=== PATIENT | female | born 1990 | race African-American/Black ===

== ENCOUNTER 2020-08-28 20:48 | Emergency (ER) | payer OTHER, SELFPAY ==
--- NOTE | 2020-08-28 21:10 | PC.NURSE ---
MD GARCIA AT BEDSIDE FOR PRIMARY EVAL.
[2020-08-28 21:21] VITALS: BP 124/75; PULSE 93; RESP 16; TEMP 37.1; O2SAT 98; BMI 27.4
--- NOTE | 2020-08-28 21:30 | ED.GENADULT ---
HPI - General Adult General Chief complaint: General Medical Stated complaint: covid symptoms Time Seen by Provider: 08/28/20 21:06 Source: patient Mode of arrival: ambulatory Limitations: no limitations History of Present Illness HPI narrative: patient with multiple strep pharyngitis. Presenting with sore throat for the past couple days. Weakness chills without fevers. No cough. No abdominal pain no nausea no vomiting unable to wait for primary care doctor office to open and came into emergency department complaint: sore throat Onset (ago): day(s) ( 1 day) Severity: mild Severity scale (1-10): 2 Pain Consistency: constant Related Data Previous Rx's Medication Instructions Recorded amoxicillin 875 mg PO BID #14 tab 08/28/20 Allergies Allergy/AdvReac Type Severity Reaction Status Date / Time jacki Allergy Unknown HIVES Unverified 08/12/20 16:35 [place] Allergy Unknown Hives Uncoded 06/07/20 00:00 Review of Systems Review of Systems: Constitutional : No Weight loss, No Fever, No Chills, No Night Sweats, No Fatigue, No Malaise ENT/Mouth : No Hearing loss, No Ear Pain, No Nasal Congestion, No Sinus Pain, No Hoarseness, positive sore throat, No Rhinorrhea, No Swallowing Difficulty Eyes: No Eye Pain, No Swelling, No Redness, No Foreign Body, No Discharge, No Vision Changes Cardiovascular : No Chest Pain, No SOB, No Dyspnea on Exertion, No Orthopnea, No Edema, No Palpitations Respiratory : No Cough, No Sputum, No Wheezing, No Smoke Exposure, No Dyspnea Gastrointestinal : No Nausea, No Vomiting, No Diarrhea, No Constipation, No abdominal Pain, No Hematochezia, No Melena Genitourinary : no irregular bleeding, No Dysuria, No Urinary Frequency, No Hematuria, No Urinary Incontinence, No Urgency, No Flank Pain, No Urinary Flow Changes, No Hesitancy Musculoskeletal : No joint pain, No Myalgias, No Joint Swelling Skin : No Skin Lesions, No rash Neuro : No Weakness, No Numbness, No Paresthesias, No Loss of Consciousness, No Dizziness, No Headache Psych : No Anxiety/Panic, No Depression, No SI/HI/AH/VH, No Social Issues, Heme/Lymph: No Bruising, No Bleeding,No Lymphadenopathy Endocrine : No Polyuria, No Polydipsia, No Temperature Intolerance [facility] Past Medical History Attestation statement: The following information was validated with the patient. Medical History (Updated 08/28/20 @ 22:50 by Han Grace DO) No known health problems Tonsillitis Family History Family History (Updated 08/28/20 @ 22:50 by Han Grace DO) Other Patient denies medical problems Social History Social History (Updated 08/28/20 @ 22:50 by Han Grace DO) Household Members: Family Advance Directives: No Physical Exam Vital Signs and I&O and Narrative: Vital Signs and I&O: Vital Signs Temp 98.7 F 08/28/20 21:21 Pulse 93 08/28/20 21:21 Resp 16 08/28/20 21:21 BP 124/75 08/28/20 21:21 Pulse Ox 98 08/28/20 21:21 Intake & Output 08/28/20 08/28/20 08/29/20 06:59 18:59 06:59 Weight 74.843 kg Body Mass Index 27.4 Const: Other: Appearance: Alert. Oriented X3. No acute distress. Eyes: Pupils equal, round and reactive to light. ENT: Pharynx bilateral exit day with Erythema. positive discharge. no stiff neck no drooling Neck: Normal inspection. Neck supple. CVS: Normal heart rate and rhythm. Pulses normal. Respiratory: No respiratory distress. Breath sounds normal. Abdomen: Soft and nontender. Skin: Skin warm and dry. Normal skin color. Normal skin turgor. Extremities: No lower extremity edema. No lower extremity edema. Neuro: Oriented X 3. No motor deficit. No sensory deficit. Discharge Plan Discharge Clinical Impression: Pharyngitis Qualifiers: Pharyngitis/tonsillitis etiology: streptococcus Qualified Code(s): J02.0 - Streptococcal pharyngitis Patient Disposition: Home, Self-Care Instructions: Pharyngitis (ED) Additional Instructions: Thank you for visiting the emergency department today. If your symptoms worsen or do not resolve completely please return to the emergency department immediately or call 911. if he have any questions please call your primary care physician Prescriptions: New amoxicillin 875 mg tablet 875 mg PO BID Qty: 14 RF: 0 Referrals: Diane Doss [Emergency Nurse] - 2 days
[2020-08-28] MEDS: Amoxicillin 500 MG CAPSULE PO (22:17)
== END 2020-08-28 23:08 | disposition home or self-care (01) ==
PROVIDERS: Emergency Provider Emergency Medicine
DX: J02.0 Streptococcal pharyngitis (principal)
CPT/HCPCS: 99283

== ENCOUNTER 2021-04-26 15:33 | Emergency (ER) | payer OTHER, SELFPAY ==
--- NOTE | ~2021-04-26 | XR_ITS ---
EXAMINATION: XR SHOULDER, RIGHT CLINICAL INFORMATION: Pain COMPARISON: None TECHNIQUE: 3 of the right shoulder. FINDINGS: The bones and soft tissues are normal. No fracture. Glenohumeral and acromioclavicular alignment is anatomic with normal joint space. No abnormal soft tissue calcifications. XR/XR shoulder RT min 2V IMPRESSION: Normal right shoulder.
[2021-04-26 15:59] VITALS: BP 132/86; PULSE 78; RESP 18; TEMP 36.2; O2SAT 99; BMI 26.6
--- NOTE | 2021-04-26 16:25 | ED_ITS ---
HPI - Extremity Problem General Chief complaint: Extremity Injury, Upper Stated complaint: rt shoulder pain Time Seen by Provider: 04/26/21 16:25 History of Present Illness HPI Narrative: Patient complains of right shoulder pain for many months worst in the past several days no acute injury now, she does have work injury from a year ago that felt the same way and never got fully better One year ago she got a steroid shot which helped a little but the shoulder has been stiff and mildly uncomfortable since Related Data Previous Rx's Medication Instructions Recorded amoxicillin 875 mg PO BID #14 tab 08/28/20 acetaminophen 1,000 mg PO QID PRN #30 tab 04/26/21 ibuprofen 600 mg PO Q6H PRN #20 tab 04/26/21 Allergies Allergy/AdvReac Type Severity Reaction Status Date / Time elroy Allergy Unknown HIVES Verified 04/26/21 15:58 [place] Allergy Unknown Hives Uncoded 06/07/20 00:00 Review of Systems Review of Systems: Positive for right shoulder pain Negatives are no fever no chills no dizziness no weakness no neck pain no back pain no radiating pain no numbness weakness or tingling no rash no chest pain Yes all other systems are reviewed and are negative PMFSH Past Medical History Source: nursing notes reviewed Medical History (Updated 04/27/21 @ 00:01 by Adolfo Connor) No known health problems Tonsillitis Family History Family History (Updated 08/28/20 @ 22:50 by Han Grace DO) Other Patient denies medical problems Social History Social History (Updated 08/28/20 @ 22:50 by Han Grace DO) Household Members: Family Advance Directives: No Advance Directives Information Provided: No Patient : No Physical Exam Vital Signs: Vital Signs: Last Vital Signs Temp 97.1 F 04/26/21 15:59 Pulse 78 04/26/21 15:59 Resp 18 04/26/21 15:59 BP 132/86 04/26/21 15:59 Pulse Ox 99 04/26/21 15:59 Body Mass Index 26.6 General appearance is no acute distress The head is normocephalic atraumatic The neck is supple and nontender The chest wall is nontender no respiratory distress Extremities the right shoulder is tender anterior and deltoid area, range of motion is limited by pain on extension abduction and external rotation, the skin is normal there is no redness no warmth no obvious effusion, the arm is neurovascular intact distal Other extremities normal Skin no rash Neuro no gross motor sensory deficit Course Course Course Narrative: Right shoulder x-ray is negative and patient will follow with orthopedist Discharge Plan Discharge Clinical Impression: Right shoulder strain Patient Disposition: Home, Self-Care Additional Instructions: X-ray was normal Follow closely with orthopedist either here or at [facility] as range of motion is reduced and it is impairing her ability to work Orthopedist may try another steroid shot, you may need an MRI you may need physical therapy Return any concerns Prescriptions: New acetaminophen 500 mg tablet 1,000 mg PO QID PRN (Reason: pain) Qty: 30 RF: 0 ibuprofen 600 mg tablet 600 mg PO Q6H PRN (Reason: pain) Qty: 20 RF: 0 No Action amoxicillin 875 mg tablet 875 mg PO BID Qty: 14 RF: 0 Referrals: Leonarda Wild MD [Physician] - 2 days (Shoulder pain for year, decreased range of motion normal x-ray) Stand Alone Forms: Work/School Release Interventions: ED Discharge Assessment Last Done: 04/26/21 17:04 Discharge Date/Time: 04/26/21 17:06
== END 2021-04-26 17:06 | disposition home or self-care (01) ==
PROVIDERS: Emergency Provider Emergency Medicine Emergency Medical Services; PCP Internal Medicine
DX: S46.911A Strain of unspecified muscle, fascia and tendon at shoulder and upper arm level, right arm, initial encounter (principal); M25.511 Pain in right shoulder; X58.XXXA Exposure to other specified factors, initial encounter; Y93.9 Activity, unspecified; Y92.9 Unspecified place or not applicable; Y99.9 Unspecified external cause status; Z79.899 Other long term (current) drug therapy
CPT/HCPCS: 73030; 99283

== ENCOUNTER 2022-11-07 18:32 | Emergency (ER) | payer OTHER, SELFPAY ==
[2022-11-07 19:59] VITALS: BP 139/95; PULSE 79; RESP 18; TEMP 36.2; O2SAT 100; BMI 24.1
--- NOTE | 2022-11-07 20:00 | ED_ITS ---
HPI - URI/Sore Throat General Chief Complaint: General Medical Stated Complaint: throat swelling/Covid + Source: patient Mode of arrival: ambulatory Limitations: no limitations History of Present Illness HPI Narrative: 32yoF recently tested positive for COVID 4-5 days ago is presenting to the ER with complaints of sore throat, cough with sputum production and chest tightness. Also reports associated nausea/vomiting. Reports she is able to keep liquids down no solids. Denies any other symptoms complaints or concerns. MD elicited complaint: cough, sore throat, rhinorrhea and nasal congestion Onset (ago): day(s) (4-5) Consistency: constant and progressively worsening Severity: moderate Description of mucous: clear, watery and yellow Able to tolerate fluids by mouth: Yes Exacerbating factors: swallowing Relieving factors: nothing Associated symptoms: chills, myalgias, rhinorrhea, nasal congestion, sore throat, cough, nausea and vomiting Treatments prior to arrival: none Related Data Previous Rx's Medication Instructions Recorded amoxicillin 875 mg tablet 875 mg PO BID #14 tabs 08/28/20 acetaminophen 500 mg tablet 1,000 mg PO QID PRN pain #30 tabs 04/26/21 ibuprofen 600 mg tablet 600 mg PO Q6H PRN pain #20 tabs 04/26/21 Allergies Allergy/AdvReac Type Severity Reaction Status Date / Time jacki Allergy Unknown HIVES Verified 04/26/21 15:58 [place] Allergy Unknown Hives Uncoded 06/07/20 00:00 Review of Systems Review of Systems: Constitutional : No Weight loss, No Fever, + Chills, No Night Sweats, + Fatigue, + Malaise ENT/Mouth : No Hearing loss, No Ear Pain, + Nasal Congestion, No Sinus Pain, No Hoarseness, + sore throat, + Rhinorrhea, No Swallowing Difficulty Eyes: No Eye Pain, No Swelling, No Redness, No Foreign Body, No Discharge, No Vision Changes Cardiovascular : No Chest Pain, No SOB, No Dyspnea on Exertion, No Orthopnea, No Edema, No Palpitations Respiratory : + Cough, + Sputum, No Wheezing, No Smoke Exposure, No Dyspnea Gastrointestinal : + Nausea, + Vomiting, No Diarrhea, No Constipation, No abdominal Pain, No Hematochezia, No Melena Genitourinary : no irregular bleeding, No Dysuria, No Urinary Frequency, No Hematuria, No Urinary Incontinence, No Urgency, No Flank Pain, No Urinary Flow Changes, No Hesitancy Musculoskeletal : No joint pain, No Myalgias, No Joint Swelling Skin : No Skin Lesions, No rash Neuro : No Weakness, No Numbness, No Paresthesias, No Loss of Consciousness, No Dizziness, No Headache Psych : No Anxiety/Panic, No Depression, No SI/HI/AH/VH, No Social Issues, Heme/Lymph: No Bruising, No Bleeding,No Lymphadenopathy Endocrine : No Polyuria, No Polydipsia, No Temperature Intolerance Yes all other systems are reviewed and are negative [facility] Past Medical History Attestation statement: The following information was validated with the patient. Source: old records reviewed and nursing notes reviewed Medical History No known health problems Tonsillitis Family History Family History Other Patient denies medical problems Social History Social History Household Members: Family Advance Directives: No Advance Directives Information Provided: No Physical Exam Vital Signs: Vital Signs: Last Vital Signs Temp 97.1 F 11/07/22 19:59 Pulse 79 11/07/22 19:59 Resp 18 11/07/22 19:59 BP 139/95 H 11/07/22 19:59 Pulse Ox 100 11/07/22 19:59 O2 Del Method 11/07/22 19:59 BMI result Body Mass Index 24.1 Vital signs reviewed. Blood pressure normal. Pulse normal. Respiration normal. Oxygen normal. Temperature normal. Appearance: Alert. Oriented X3. No acute distress. Head: Normal external exam. Normocephalic. Atraumatic. Eyes: PERRLA. EOMI. Conjunctiva and sclera normal. Eyelids normal. ENT: EAC normal. TM's Normal. Pharynx normal. Uvula midline. Moist mucous membranes. No lesions/ulcerations or masses noted on the tongue. Normal voice. No trismus noted. No drooling noted. No muffled voice noted. Neck: Normal inspection. Neck supple. FROM. No adenopathy. Thyroid Normal. No meningeal signs. CVS: Normal heart rate and rhythm. Heart sound normal. Pulses normal throughout. No murmurs/rales/gallops. Respiratory: No respiratory distress. Painless inspiration. Breath sounds normal. No wheezes/rales/rhonchi noted. Chest nontender. No accessory muscle usage noted or decreased air movement noted. Abdomen: Soft and nontender. Back: Full range of motion noted. Nontender. Skin: Skin warm and dry. Normal skin color. Normal skin turgor. No rashes/lesions/lacerations noted. Extremities: Extremities exhibit normal range of motion and nontender. Neuro: Oriented X 3. No motor deficit. No sensory deficit. Reflexes normal. Normal steady gait. No focal neuro deficits noted. CN's II-XII intact bilaterally? Vascular: + radial pulses. Normal cap refill. No cyanosis noted to upper extremity nails Course Course Course Narrative: 20pm - 32yoF recently tested positive for COVID 4-5 days ago is presenting to the ER with complaints of sore throat, cough with sputum production and chest tightness. Also reports associated nausea/vomiting. Reports she is able to keep liquids down no solids. Denies any other symptoms complaints or concerns. Plan: COVID/RSV/flu swab, rapid strep. Patient is stable. Vital signs are stable. Not in any acute distress. Patient will be sent to Emergency [facility] care for further evaluation treatment she could benefit from Zofran and a p.o. trial. Reevaluation(s) Reevaluation #1: Patient eloped before told results. all other swabs negatived. Medical Decision Making Lab Data MDM Lab Attestation statement: I reviewed the patient's lab results. Labs: Lab Results 11/07/22 11/07/22 Range/Units 20:04 20:04 Influenza Type A (PCR) NEGATIVE (Negative) Influenza Type B (PCR) NEGATIVE (Negative) RSV RNA Qual (PCR) NEGATIVE (Negative) SARS-CoV-2 RNA (RT-PCR) POSITIVE A (Negative) S. pyogenes GrpA LULY Negative (Negative) Discharge Plan Discharge Clinical Impression: COVID-19 Patient Disposition: Elopement Prescriptions: No Action amoxicillin 875 mg tablet 875 mg PO BID Qty: 14 0RF acetaminophen 500 mg tablet 1,000 mg PO QID PRN (Reason: pain) Qty: 30 0RF ibuprofen 600 mg tablet 600 mg PO Q6H PRN (Reason: pain) Qty: 20 0RF Discharge Date/Time: 11/08/22 00:30
[2022-11-07 20:23] LABS: Strep A Nucleic Acid Negative (Negative)
[2022-11-07 20:55] LABS: Influenza A PCR NEGATIVE (Negative); Influenza B PCR NEGATIVE (Negative); Resp Syncy Virus RNA Qual PCR NEGATIVE (Negative); SARS COV2 PCR INHOUSE POSITIVE (Negative)
--- NOTE | 2022-11-07 23:45 | PC.NURSE ---
Pt called for triage reassessment. PT not in waiting room at this time.
--- NOTE | 2022-11-08 00:25 | PC.NURSE ---
Pt called to triage desk, pt not in waiting room.
== END 2022-11-08 00:30 | disposition left against medical advice (07) ==
PROVIDERS: Emergency Provider Emergency Medicine; PCP Internal Medicine
DX: U07.1 COVID-19 (principal); M79.10 Myalgia, unspecified site; R05.9 Cough, unspecified; Z79.899 Other long term (current) drug therapy
CPT/HCPCS: 0241U; 87651; 99281; 99283

== ENCOUNTER 2022-12-17 13:47 | Emergency (ER) | payer OTHER, SELFPAY ==
[2022-12-17 13:53] VITALS: BP 155/90; PULSE 95; RESP 17; TEMP 36.9; O2SAT 100; BMI 24.4
--- NOTE | 2022-12-17 13:53 | ED_ITS ---
HPI - URI/Sore Throat General Chief Complaint: Upper Respiratory Symptoms <Danika Mota CNP - Last Filed: 12/17/22 13:56> Stated Complaint: R side of throat feels tight, clogged ears <Danika Mota CNP - Last Filed: 12/17/22 13:56> Time Seen by Provider: 12/17/22 14:47 <Danika Mota CNP - Last Filed: 12/17/22 13:56> Source: patient <BIANCA Taylor - Last Filed: 12/17/22 15:45> Mode of arrival: ambulatory <BIANCA Taylor - Last Filed: 12/17/22 15:45> History of Present Illness HPI Narrative: 32-year-old female with a past medical history of COVID-19 in October presenting to the ED complaining of continued sore throat/swelling, greater on the right, with right ear fullness x1 month. Reports chronic clear drainage from right ear, unchanged. Denies difficulty/inability to swallow, shortness of breath, wheezing, fever, hearing loss, cough <BIANCA Taylor - Last Filed: 12/17/22 15:45> MD elicited complaint: sore throat <BIANCA Taylor - Last Filed: 12/17/22 15:45> Onset (ago): month(s) <BIANCA Taylor - Last Filed: 12/17/22 15:45> Related Data Home Medications: Previous Rx's Medication Instructions Recorded amoxicillin 875 mg tablet 875 mg PO BID #14 tabs 08/28/20 acetaminophen 500 mg tablet 1,000 mg PO QID PRN pain #30 tabs 04/26/21 ibuprofen 600 mg tablet 600 mg PO Q6H PRN pain #20 tabs 04/26/21 azithromycin 250 mg tablet See Rx Instructions PO .COMPLEX #6 12/17/22 tabs <Danika Mota CNP - Last Filed: 12/17/22 13:56> Allergies/Adverse Reactions: Allergies Allergy/AdvReac Type Severity Reaction Status Date / Time elroy Allergy Unknown HIVES Verified 04/26/21 15:58 Elroy Allergy Unknown Hives Uncoded 06/07/20 00:00 <Danika Mota CNP - Last Filed: 12/17/22 13:56> Review of Systems Review of Systems: Constitutional:No Fever, No Chills ENT/Mouth: No Ear Pain, No Nasal Congestion, No Sinus Pain, No Hoarseness, + sore throat, No Rhinorrhea, No Swallowing Difficulty Cardiovascular: No Chest Pain, No SOB Respiratory: No Cough, No Wheezing Gastrointestinal: No Nausea, No Vomiting, No Abdominal pain Genitourinary: No Dysuria, No Urinary Frequency, No Hematuria, No Flank Pain Musculoskeletal: No joint pain, No Myalgias, No Joint Swelling Skin: No Skin Lesions, No rash Neuro: No Weakness, No Numbness, No Paresthesias <BIANCA Taylor - Last Filed: 12/17/22 15:45> Yes all other systems are reviewed and are negative <BIANCA Taylor - Last Filed: 12/17/22 15:45> Constitutional: Constitutional: Reports as per HPI <BIANCA Taylor - Last Filed: 12/17/22 15:45> [facility] Past Medical History Attestation statement: The following information was validated with the patient. <BIANCA Taylor - Last Filed: 12/17/22 15:45> Medical History: Medical History No known health problems Tonsillitis <Danika Mota CNP - Last Filed: 12/17/22 13:56> Family History Family History: Family History Other Patient denies medical problems <Danika Mota CNP - Last Filed: 12/17/22 13:56> Social History Social History: Social History Household Members: Family Smoked in Last 30 Days: No Use of substances other than those prescribed or required for medical reasons: No Advance Directives: No Advance Directives Information Provided: No Patient : No <Danika Mota CNP - Last Filed: 12/17/22 13:56> Physical Exam Vital Signs: Vital Signs: Last Vital Signs Temp 98.5 F 12/17/22 13:53 Pulse 95 12/17/22 13:53 Resp 17 12/17/22 13:53 BP 155/90 H 12/17/22 13:53 Pulse Ox 100 12/17/22 13:53 O2 Del Method 12/17/22 13:53 BMI result Body Mass Index 24.4 <Danika Mota ELECTRICIAN [employer]OP - Last Filed: 12/17/22 13:56> Vital Signs: Last Vital Signs Temp 98.5 F 12/17/22 13:53 Pulse 95 12/17/22 13:53 Resp 17 12/17/22 13:53 BP 155/90 H 12/17/22 13:53 Pulse Ox 100 12/17/22 13:53 O2 Del Method 12/17/22 13:53 BMI result Body Mass Index 24.4 <BIANCA Taylor - Last Filed: 12/17/22 15:45> Const: General: cooperative, healthy appearing and no acute distress <BIANCA Taylor - Last Filed: 12/17/22 15:45> Orientation/consciousness: patient oriented x3 <BIANCA Taylor - Last Filed: 12/17/22 15:45> Limitations: no limitations <BIANCA Taylor - Last Filed: 12/17/22 15:45> HEENT: Head: Yes normal to inspection and Yes atraumatic <BIANCA Taylor - Last Filed: 12/17/22 15:45> Ears: hearing grossly normal bilaterally, external ears normal, TM's normal bilaterally and mastoids normal <BIANCA Taylor - Last Filed: 12/17/22 15:45> General nose exam: Normal external nose present <BIANCA Taylro - Last Filed: 12/17/22 15:45> Face and sinus: Yes normal facial exam <BIANCA Taylor Last Filed: 12/17/22 15:45> Mouth: Normal oral and palatal mucosa present <BIANCA Taylor Last Filed: 12/17/22 15:45> Throat: Yes posterior oropharynx normal, Yes tonsils normal, Yes uvula midline, No peritonsillar mass, No posterior oropharynx abnormal, No uvula laterally displaced and No uvular edema <BIANCA Taylor Last Filed: 12/17/22 15:45> Eyes: General: appearance normal, both eyes and all related structures <BIANCA Taylor - Last Filed: 12/17/22 15:45> EOM: EOMs intact bilaterally <BIANCA Taylor - Last Filed: 12/17/22 15:45> Neck: Other: + bilateral submandibular and anterior cervical lymphadenopathy <BIANCA Taylor - Last Filed: 12/17/22 15:45> Neck: Yes normal visual inspection, Yes full ROM, Yes no meningeal signs, Yes lymphadenopathy, No midline deformity and No torticollis <BIANCA Taylor - Last Filed: 12/17/22 15:45> Thyroid: Thyroid normal <BIANCA Taylor - Last Filed: 12/17/22 15:45> Resp: Effort & Inspection: normal respiratory effort and no respiratory distress <BIANCA Taylor - Last Filed: 12/17/22 15:45> Cardio: Rate: regular rate <BIANCA Taylor - Last Filed: 12/17/22 15:45> Heart sounds: S1 normal heart sound present and S2 normal heart sound present <BIANCA Taylor - Last Filed: 12/17/22 15:45> Skin: Rashes: no rashes <Alejandra Briseno PA - Last Filed: 12/17/22 15:45> Wounds: no wounds <BIANCA Taylor - Last Filed: 12/17/22 15:45> Neuro: General: patient oriented x3, tone normal and no meningeal signs <BIANCA Taylor - Last Filed: 12/17/22 15:45> Gait exam (Neuro): Normal gait present <BIANCA Taylor - Last Filed: 12/17/22 15:45> Extrem: General: Yes normal to inspection <BIANCA Taylor - Last Filed: 12/17/22 15:45> Course Course Course Narrative: This is an RME: Additional HPI, ROS, PE not included below will be deferred to primary provider. Patient is a 32 year old female who presents to the ED for throat symptoms. States COVID + 11/02/22. Since then she is having right sided throat pain, tightness, feels when she is supine she can't breath. Was evaluated at urgent care about 4 weeks ago, treated for bronchitis with steroids and inhaler, benzonatate but this did not improved her symptoms. Plan: COVID-19/influenza/RSV testing, strep testing <Danika Mota CNP - Last Filed: 12/17/22 13:56> This is an RME: Additional HPI, ROS, PE not included below will be deferred to primary provider. Patient is a 32 year old female who presents to the ED for throat symptoms. States COVID + 11/02/22. Since then she is having right sided throat pain, tightness, feels when she is supine she can't breath. Was evaluated at urgent care about 4 weeks ago, treated for bronchitis with steroids and inhaler, benzonatate but this did not improved her symptoms. Plan: COVID-19/influenza/RSV testing, strep testing -COVID-19/influenza/RSV and rapid strep negative Results discussed with patient including worrisome signs and symptoms and strict return precautions, and when to return to the emergency department. They verbalized understanding and feel safe for discharge at this time. <BIANCA Taylor - Last Filed: 12/17/22 15:45> Medications Administered Discontinued Medications Generic Name Dose Route Start Last Admin Trade Name Freq PRN Reason Stop Dose Admin Dexamethasone Sodium Phosphate 10 mg 12/17/22 15:11 12/17/22 15:16 Dexamethasone Sod Phosphate 10 Mg/Ml Vial IVPUSH 12/17/22 15:12 10 mg ONCE ONE Administration <Danika Mota CNP - Last Filed: 12/17/22 13:56> Medications Administered Discontinued Medications Generic Name Dose Route Start Last Admin Trade Name Freq PRN Reason Stop Dose Admin Dexamethasone Sodium Phosphate 10 mg 12/17/22 15:11 12/17/22 15:16 Dexamethasone Sod Phosphate 10 Mg/Ml Vial IVPUSH 12/17/22 15:12 10 mg ONCE ONE Administration <BIANCA Taylor - Last Filed: 12/17/22 15:45> Medical Decision Making Medical Decision Making MDM Narrative: 32-year-old female with a past medical history of COVID-19 in October presenting to the ED complaining of continued sore throat/swelling, greater on the right, with right ear fullness x1 month. On exam vital signs stable, NAD, nontoxic appearing, TMs WNL bilaterally, mastoids WNL, oropharynx without swelling/erythema or exudates. No evidence of TIME MOTION ANALYST. No anterior neck swelling. Concern for viral syndrome vs lymphadenopathy vs strep pharyngitis. No evidence of TIME MOTION ANALYST. Low suspicion for underlying edema or epiglottitis. Low suspicion for pneumonia or mastoiditis/chronic otitis externa. Plan: COVID-19/influenza/RSV testing, rapid strep, p.o. Decadron, ENT follow-up Please refer to course for remaining clinical decision making, interpretation of labs/imaging results, and discussions with consultants and/or family members. <BIANCA Taylor - Last Filed: 12/17/22 15:45> Differential Diagnosis Differential Diagnoses: The differential diagnosis associated with the presentation includes <BIANCA Taylor - Last Filed: 12/17/22 15:45> as above <BIANCA Taylor - Last Filed: 12/17/22 15:45> Lab Data MDM Lab Attestation statement: I reviewed the patient's lab results. <BIANCA Taylor - Last Filed: 12/17/22 15:45> Labs: Lab Results 12/17/22 12/17/22 Range/Units 14:08 14:08 Influenza Type A (PCR) NEGATIVE (Negative) Influenza Type B (PCR) NEGATIVE (Negative) RSV RNA Qual (PCR) NEGATIVE (Negative) SARS-CoV-2 RNA (RT-PCR) NEGATIVE (Negative) S. pyogenes GrpA LULY Negative (Negative) <Danika Mota CNP - Last Filed: 12/17/22 13:56> Lab Results 12/17/22 12/17/22 Range/Units 14:08 14:08 Influenza Type A (PCR) NEGATIVE (Negative) Influenza Type B (PCR) NEGATIVE (Negative) RSV RNA Qual (PCR) NEGATIVE (Negative) SARS-CoV-2 RNA (RT-PCR) NEGATIVE (Negative) S. pyogenes GrpA LULY Negative (Negative) <BIANCA Taylor - Last Filed: 12/17/22 15:45> External Record Review External record reviewed: Office record, Outpatient record and Prior outpatient labs <BIANCA Taylor - Last Filed: 12/17/22 15:45> Prescription Management I considered prescription management with: Pain Medication and Antibiotic <BIANCA Taylor - Last Filed: 12/17/22 15:45> Discharge Plan Discharge Clinical Impression: Lymphadenopathy <Danika Mota CNP - Last Filed: 12/17/22 13:56> Patient Disposition: Home, Self-Care <Danika Mota CNP - Last Filed: 12/17/22 13:56> Instructions: Lymphadenopathy (ED) <Danika Mota CNP - Last Filed: 12/17/22 13:56> Additional Instructions: You tested negative for COVID-19, the flu, and RSV. Your given a dose of an oral steroid today in the emergency department, additionally start taking a Zithromax in which is an antibiotic. Have close follow-up with her doctor and ENT. If symptoms persist or worsen, you have difficulty or inability to swallow, difficulty breathing, fever return to the emergency department <Danika Mota CNP - Last Filed: 12/17/22 13:56> Prescriptions: New azithromycin 250 mg tablet See Rx Instructions .ROUTE .COMPLEX Qty: 6 0RF Rx Instructions: take 500 mg today (day 1), then 250 mg for 4 days (days 2-5) No Action amoxicillin 875 mg tablet 875 mg PO BID Qty: 14 0RF acetaminophen 500 mg tablet 1,000 mg PO QID PRN (Reason: pain) Qty: 30 0RF ibuprofen 600 mg tablet 600 mg PO Q6H PRN (Reason: pain) Qty: 20 0RF <Danika Mota CNP - Last Filed: 12/17/22 13:56> Referrals: Fauzia Aburto MD [Physician] - Jenny Lindsay DNP, PROTOTYPE FABRICATOR [Nurse Practitioner] - Jojo Oscar PA [Physician Applied Psychology Chair] - Danie Wall MD [Primary Care Provider] - Gunnar Whitten [Physician] - <Danika Mota CNP - Last Filed: 12/17/22 13:56> Interventions: ED Discharge Assessment Last Done: 12/17/22 15:19 <Danika Mota CNP - Last Filed: 12/17/22 13:56> Discharge Date/Time: 12/17/22 15:23 <Danika Mota CNP - Last Filed: 12/17/22 13:56>
[2022-12-17 14:22] LABS: IDNOW Serial# 6674DD1D
[2022-12-17 14:23] LABS: Strep A Nucleic Acid Negative (Negative)
[2022-12-17 15:00] LABS: Influenza A PCR NEGATIVE (Negative); Influenza B PCR NEGATIVE (Negative); Resp Syncy Virus RNA Qual PCR NEGATIVE (Negative); SARS COV2 PCR INHOUSE NEGATIVE (Negative)
[2022-12-17] MEDS: dexAMETHasone sod phosphate 10 MG/ML VIAL IVPUSH (15:16)
== END 2022-12-17 15:23 | disposition home or self-care (01) ==
PROVIDERS: Nurse Practitioner Family; Emergency Provider Emergency Medicine; PCP Family Medicine
DX: R59.1 Generalized enlarged lymph nodes (principal); Z20.822 Contact with and (suspected) exposure to COVID-19; Z20.828 Contact with and (suspected) exposure to other viral communicable diseases; Z79.899 Other long term (current) drug therapy
CPT/HCPCS: 0241U; 87651; 96374; 99284; J1100

== ENCOUNTER 2022-12-21 10:30 | Emergency (ER) | payer OTHER, SELFPAY ==
--- NOTE | ~2022-12-21 | CT_ITS ---
EXAMINATION: CT SINUS WITHOUT CONTRAST CLINICAL INFORMATION: Pressure in the sinuses. COMPARISON: None TECHNIQUE: Axial images obtained through the sinuses. Coronal and sagittal reformatted images are performed at CT scanner This CT examination was performed using dose optimization techniques as appropriate, variously including the following: *Automated exposure control *Adjustment of mA and/or kV according to patient size (this includes techniques or standardized protocols for targeted exams where dose is matched to indication/reason for exam; i.e. extremities or head) *Use of iterative reconstruction technique DLP: 120 mGy-cm FINDINGS: Paranasal sinuses are normally aerated. Normal aeration of the mastoid air cells and middle ear cavities. Orbits and retrobulbar structures are normal. Partially visualized intracranial structures are unremarkable. There is no osseous abnormality. CT/CT sinus wo IV con IMPRESSION: Normal CT of the paranasal sinuses.
--- NOTE | 2022-12-21 10:48 | ED_ITS ---
HPI - URI/Sore Throat General Chief Complaint: General Medical <Hanny Gordon NP - Last Filed: 12/21/22 10:51> Stated Complaint: sinus pressure sore throat <Hanny Gordon NP - Last Filed: 12/21/22 10:51> Time Seen by Provider: 12/21/22 13:05 <Hanny Gordon NP - Last Filed: 12/21/22 10:51> Source: patient <Gomez Fowler - Last Filed: 12/21/22 14:59> Limitations: no limitations <Gomez Fowler - Last Filed: 12/21/22 14:59> History of Present Illness HPI Narrative: 32-year-old female presents to the ER with multiple complaints of sinus pressure in the right facial area and continued sore throat. Patient states sy mptoms have worsened since tested positive for COVID some time ago. Patient has had multiple visits to the ER for worsening throat pain it lymphadenopathy. Patient recently started on Z-Rafa and her most recent visit on 12/17/2022. Patient taking no other prescribed medications at this time. Patient states she is chronically use Afrin in the past to help open up her nasal passageway. Patient has planned follow-up with PCP and also an ENT doctor. Patient is concerned that something else is going on. Patient also complaining of right- sided ear pain. Patient states at times she feels spasming in her sinuses and neck and that she can not breathe. No sick contacts. Patient does have an in halation history of marijuana use. <Gomez Fowler - Last Filed: 12/21/22 14:59> Related Data Home Medications: Previous Rx's Medication Instructions Recorded amoxicillin 875 mg tablet 875 mg PO BID #14 tabs 08/28/20 acetaminophen 500 mg tablet 1,000 mg PO QID PRN pain #30 tabs 04/26/21 ibuprofen 600 mg tablet 600 mg PO Q6H PRN pain #20 tabs 04/26/21 azithromycin 250 mg tablet See Rx Instructions PO .COMPLEX #6 12/17/22 tabs cetirizine 5 mg-pseudoephedrine ER 1 tab PO Q12H PRN allergy symptoms 12/21/22 120 mg tablet,extended #30 tabs release,12hr (All Day Allergy-D) fluticasone propionate 50 2 spray intranasal DAILY #16 grams 12/21/22 mcg/actuation nasal spray,suspension (Aller-Jame) prednisone 20 mg tablet 40 mg PO DAILY 5 days #10 tabs 12/21/22 <Hanny Gordon NP - Last Filed: 12/21/22 10:51> Allergies/Adverse Reactions: Allergies Allergy/AdvReac Type Severity Reaction Status Date / Time elroy Allergy Unknown HIVES Verified 04/26/21 15:58 Elroy Allergy Unknown Hives Uncoded 06/07/20 00:00 <Hanny Gordon NP - Last Filed: 12/21/22 10:51> Review of Systems Review of Systems: Constitutional : No Weight loss, No Fever, No Chills, No Night Sweats, No Fatigue, No Malaise ENT/Mouth : Positive sore throat, positive right ear pain positive positive sinus pressure positive nasal discharge congestion Eyes: No vision changes no discharge from the eyes Cardiovascular : No Chest Pain, No SOB, No Dyspnea on Exertion Respiratory : No Cough, No Sputum, No Wheezing Gastrointestinal : No Nausea, No Vomiting, No Diarrhea Genitourinary : no irregular bleeding, No Dysuria, No Urinary Frequency Neuro : No Weakness, No Numbness, No Paresthesias, No Loss of Consciousness, No Dizziness, No Headache Psych : Positive anxiety associated with current symptoms Heme/Lymph: No Bruising, No Bleeding,No Lymphadenopathy Endocrine : No Polyuria, No Polydipsia, No Temperature Intolerance <Gomez Fowler - Last Filed: 12/21/22 14:59> [facility] Past Medical History Attestation statement: The following information was validated with the patient. <Gomez Fowler - Last Filed: 12/21/22 14:59> Medical History: Medical History No known health problems Tonsillitis <Hanny Gordon NP - Last Filed: 12/21/22 10:51> Family History Family History: Family History Other Patient denies medical problems <Hanny Gordon NP - Last Filed: 12/21/22 10:51> Social History Social History: Social History Household Members: Family Advance Directives: No <Hanny GhoshZBIGNIEW calvillo - Last Filed: 12/21/22 10:51> Physical Exam Vital Signs: Vital Signs: Last Vital Signs Temp 98.4 F 12/21/22 10:49 Pulse 85 12/21/22 10:49 Resp 16 12/21/22 10:49 BP 137/96 H 12/21/22 10:49 Pulse Ox 100 12/21/22 10:49 O2 Del Method 12/21/22 10:49 BMI result Body Mass Index 24.4 <Hanny GhoshZBIGNIEW calvillo - Last Filed: 12/21/22 10:51> Vital Signs: Last Vital Signs Temp 98.4 F 12/21/22 10:49 Pulse 85 12/21/22 10:49 Resp 16 12/21/22 10:49 BP 137/96 H 12/21/22 10:49 Pulse Ox 100 12/21/22 10:49 O2 Del Method 12/21/22 10:49 BMI result Body Mass Index 24.4 <Gomez Fowler - Last Filed: 12/21/22 14:59> Const: General: healthy appearing, alert, awake and anxious <Gomez Fowler - Last Filed: 12/21/22 14:59> Nutritional Appearance: well nourished <Gomez Fowler - Last Filed: 12/21/22 14:59> Orientation/consciousness: patient oriented x3 <Gomez Fowler - Last Filed: 12/21/22 14:59> HEENT: Other: Right ears clear TM is sharp no fluid noted no discharge noted <Gomez Fowler - Last Filed: 12/21/22 14:59> Head: Yes normocephalic and Yes atraumatic <Gomez Fowler - Last Filed: 12/21/22 14:59> Face and sinus: No sinuses nontender (Right-sided) and Yes face symmetric <Gomez Fowler - Last Filed: 12/21/22 14:59> Mouth: Normal oral and palatal mucosa present, lip normal and tongue normal <Gomez Fowler - Last Filed: 12/21/22 14:59> Teeth and gingiva: dentition normal <Gomez Fowler - Last Filed: 12/21/22 14:59> Throat: Yes posterior oropharynx normal, Yes tonsils normal, Yes uvula midline, No peritonsillar mass and Yes postnasal drainage <Gomez Fowler Last Filed: 12/21/22 14:59> Eyes: General: appearance normal, both eyes and all related structures <Gomez Fowler Last Filed: 12/21/22 14:59> Neck: Other: No carotid bruit noted <Gomez Fowler Last Filed: 12/21/22 14:59> Neck: Yes normal visual inspection, Yes full ROM, Yes trachea midline, Yes supple and No torticollis <[facility] - Last Filed: 12/21/22 14:59> Thyroid: Thyroid normal and symmetrical < Last Filed: 12/21/22 14:59> Chest: Chest palpation & inspection: normal inspection of the chest <Gomez Fowler Last Filed: 12/21/22 14:59> Resp: Effort & Inspection: normal respiratory effort <Gomez Fowler Last Filed: 12/21/22 14:59> Auscultation: clear to auscultation bilaterally <Gomez Fowler Last Filed: 12/21/22 14:59> Cardio: Rate: regular rate <ens Last Filed: 12/21/22 14:59> Rhythm: regular rhythm <Gomez Fowler Last Filed: 12/21/22 14:59> Heart sounds: no gallops and no murmurs <ens Last Filed: 12/21/22 14:59> GI: Inspection: Yes normal to inspection <[facility] Last Filed: 12/21/22 14:59> Back/Spine/Pelvis: Cervical Spine: normal cervical lordosis and cervical ROM normal <[facility] Last Filed: 12/21/22 14:59> Thoracic/Lumbar Spine: thoracic and lumbar spine normal to inspection <[facility] Last Filed: 12/21/22 14:59> Skin: Other: Skin warm and dry no rashes noted <[facility] Last Filed: 12/21/22 14:59> Neuro: Other: Patient is alert oriented x3, no focal deficit noted. Construction Specialist is equal bilaterally. No pronator drift. <Gomez Fowler - Last Filed: 12/21/22 14:59> General: patient oriented x3 <[facility] Last Filed: 12/21/22 14:59> Motor exam (neuro): 5/5 motor strength present throughout <Gomez Fowler - Last Filed: 12/21/22 14:59> Extrem: Other: Moving all extremities purposely patient is ambulatory <Gomez Fowler - Last Filed: 12/21/22 14:59> Course Course Course Narrative: This is a rapid medical exam. Deferred additional HPI, ROS, PE to primary provider. 32 yo female here with right sided ear pain, right sided sore throat, sinus pressure/pain x weeks. Seen here Sunday and had negative viral testing. Started on azithromycin with continued symptoms. Has appt with PCP in January, ENT March. Patient reports continued symptoms. Will obtain swabs for strep, flu/covid/rsv. VSS. <Hanny Gordon NP - Last Filed: 12/21/22 10:51> This is a rapid medical exam. Deferred additional HPI, ROS, PE to primary provider. 32 yo female here with right sided ear pain, right sided sore throat, sinus pressure/pain x weeks. Seen here Sunday and had negative viral testing. Started on azithromycin with continued symptoms. Has appt with PCP in January, ENT March. Patient reports continued symptoms. Will obtain swabs for strep, flu/covid/rsv. VSS. Sinusitis Rhinitis Deviated septum Viral URI Pharyngitis [place] <Gomez Fowler - Last Filed: 12/21/22 14:59> Medical Decision Making Medical Decision Making MDM Narrative: 32-year-old female presents with ongoing sore throat sinus pressure on the right side. Patient has been seen in the ER x2 and has planned follow-up with ENT and PCP. Patient recently started on a Z-Rafa for lymphadenopathy the cervical chain. Patient is without shortness of breath at this time but does have episodes Head time was she feels like her neck spasms and that she can not breathe. Patient is chronically use Afrin for nasal clearing. Will check Monospot at this time. CBC BMP CT scan of the sinuses 14:34 CBC BMP unremarkable at this time Monospot is also negative. CT scan of the sinuses is pending Will plan to change patient to Flonase to avoid continued Afrin use. Patient is following up with ENT and PCP 14:53 Patient signed out to Trey Jenkins CT scan pending. <Gomez Rayens - Last Filed: 12/21/22 14:59> Lab Data Result Diagrams: 12/21/22 13:25 12/21/22 13:25 <Hanny Gordon NP - Last Filed: 12/21/22 10:51> Labs: Lab Results 12/21/22 12/21/22 12/21/22 Range/Units 10:57 10:57 13:25 WBC 6.1 (4.8-10.8) X10*3/uL RBC 4.34 (4.20-5.50) X10*6/uL Hgb 13.5 (12.0-16.0) g/dl Hct 40.9 (37.0-47.0) % MCV 94.2 (80.0-98.0) fL MCH 31.1 (27.0-33.0) pg MCHC 33.0 (31.0-35.0) g/dl RDW 12.1 (11.0-16.0) % Plt Count 266 (160-400) X10*3/uL MPV 11.6 (9.4-12.3) fL Immature Gran % (Auto) Cancelled Neut % (Auto) Cancelled Lymph % (Auto) Cancelled [place] % (Auto) Cancelled Eos % (Auto) Cancelled Baso % (Auto) Cancelled Lymph # (Auto) Cancelled [place] # (Auto) Cancelled Eos # (Auto) Cancelled Baso # (Auto) Cancelled Abs Immat Gran (auto) Cancelled Absolute Neuts (auto) Cancelled Absolute Nucleated RBC 0.000 (0.0-0.012) X10*3/uL Nucleated RBC % (auto) 0.0 (0.0-0.2) /100WBC Neutrophils % (Manual) 57 (45-73) % Band Neutrophils % 0 L (3-5) % Lymphocytes % (Manual) 36 (20-40) % Monocytes % (Manual) 5 (2-11) % Eosinophils % (Manual) 1 (0-4) % Basophils % (Manual) 1 (0-2) % Abs Neuts (Manual) 3.5 (2.0-8.3) X10*3/uL Lymphocytes # (Manual) 2.2 (1.2-4.9) X10*3/uL Monocytes # (Manual) 0.3 (0.1-1.2) X10*3/uL Eosinophils # (Manual) 0.1 (0.0-0.4) X10*3/uL Basophils # (Manual) 0.1 (0.0-0.2) X10*3/uL Platelet Estimate NORMAL (NORMAL) Plt Morphology Comment NORMAL RBC Morphology NORMAL Sodium (135-145) mmol/L Potassium (3.3-5.1) mmol/L Chloride (96-108) mmol/L Carbon Dioxide (22-29) mmol/L Anion Gap (12-20) BUN (9-16) mg/dL Creatinine (0.5-1.4) mg/dL Estim Creat Clear Calc Estimated GFR Random Glucose (60-115) mg/dL Calcium (8.4-10.2) mg/dL Monoscreen (Negative) Influenza Type A (PCR) NEGATIVE (Negative) Influenza Type B (PCR) NEGATIVE (Negative) RSV RNA Qual (PCR) NEGATIVE (Negative) SARS-CoV-2 RNA (RT-PCR) NEGATIVE (Negative) S. pyogenes GrpA LULY Negative (Negative) 12/21/22 12/21/22 Range/Units 13:25 13:25 WBC (4.8-10.8) X10*3/uL RBC (4.20-5.50) X10*6/uL Hgb (12.0-16.0) g/dl Hct (37.0-47.0) % MCV (80.0-98.0) fL MCH (27.0-33.0) pg MCHC (31.0-35.0) g/dl RDW (11.0-16.0) % Plt Count (160-400) X10*3/uL MPV (9.4-12.3) fL Immature Gran % (Auto) Neut % (Auto) Lymph % (Auto) [place] % (Auto) Eos % (Auto) Baso % (Auto) Lymph # (Auto) [place] # (Auto) Eos # (Auto) Baso # (Auto) Abs Immat Gran (auto) Absolute Neuts (auto) Absolute Nucleated RBC (0.0-0.012) X10*3/uL Nucleated RBC % (auto) (0.0-0.2) /100WBC Neutrophils % (Manual) (45-73) % Band Neutrophils % (3-5) % Lymphocytes % (Manual) (20-40) % Monocytes % (Manual) (2-11) % Eosinophils % (Manual) (0-4) % Basophils % (Manual) (0-2) % Abs Neuts (Manual) (2.0-8.3) X10*3/uL Lymphocytes # (Manual) (1.2-4.9) X10*3/uL Monocytes # (Manual) (0.1-1.2) X10*3/uL Eosinophils # (Manual) (0.0-0.4) X10*3/uL Basophils # (Manual) (0.0-0.2) X10*3/uL Platelet Estimate (NORMAL) Plt Morphology Comment RBC Morphology Sodium 139 (135-145) mmol/L Potassium 4.5 (3.3-5.1) mmol/L Chloride 106 (96-108) mmol/L Carbon Dioxide 24 (22-29) mmol/L Anion Gap 14 (12-20) BUN 6 L (9-16) mg/dL Creatinine 0.77 (0.5-1.4) mg/dL Estim Creat Clear Calc 93.5 Estimated GFR > 60 Random Glucose 88 (60-115) mg/dL Calcium 9.5 (8.4-10.2) mg/dL Monoscreen Negative (Negative) Influenza Type A (PCR) (Negative) Influenza Type B (PCR) (Negative) RSV RNA Qual (PCR) (Negative) SARS-CoV-2 RNA (RT-PCR) (Negative) S. pyogenes GrpA LULY (Negative) <Hanny Gordon, HOSE TURNER - Last Filed: 12/21/22 10:51> Lab Results 12/21/22 12/21/22 12/21/22 Range/Units 10:57 10:57 13:25 WBC 6.1 (4.8-10.8) X10*3/uL RBC 4.34 (4.20-5.50) X10*6/uL Hgb 13.5 (12.0-16.0) g/dl Hct 40.9 (37.0-47.0) % MCV 94.2 (80.0-98.0) fL MCH 31.1 (27.0-33.0) pg MCHC 33.0 (31.0-35.0) g/dl RDW 12.1 (11.0-16.0) % Plt Count 266 (160-400) X10*3/uL MPV 11.6 (9.4-12.3) fL Immature Gran % (Auto) Cancelled Neut % (Auto) Cancelled Lymph % (Auto) Cancelled [place] % (Auto) Cancelled Eos % (Auto) Cancelled Baso % (Auto) Cancelled Lymph # (Auto) Cancelled [place] # (Auto) Cancelled Eos # (Auto) Cancelled Baso # (Auto) Cancelled Abs Immat Gran (auto) Cancelled Absolute Neuts (auto) Cancelled Absolute Nucleated RBC 0.000 (0.0-0.012) X10*3/uL Nucleated RBC % (auto) 0.0 (0.0-0.2) /100WBC Neutrophils % (Manual) 57 (45-73) % Band Neutrophils % 0 L (3-5) % Lymphocytes % (Manual) 36 (20-40) % Monocytes % (Manual) 5 (2-11) % Eosinophils % (Manual) 1 (0-4) % Basophils % (Manual) 1 (0-2) % Abs Neuts (Manual) 3.5 (2.0-8.3) X10*3/uL Lymphocytes # (Manual) 2.2 (1.2-4.9) X10*3/uL Monocytes # (Manual) 0.3 (0.1-1.2) X10*3/uL Eosinophils # (Manual) 0.1 (0.0-0.4) X10*3/uL Basophils # (Manual) 0.1 (0.0-0.2) X10*3/uL Platelet Estimate NORMAL (NORMAL) Plt Morphology Comment NORMAL RBC Morphology NORMAL Sodium (135-145) mmol/L Potassium (3.3-5.1) mmol/L Chloride (96-108) mmol/L Carbon Dioxide (22-29) mmol/L Anion Gap (12-20) BUN (9-16) mg/dL Creatinine (0.5-1.4) mg/dL Estim Creat Clear Calc Estimated GFR Random Glucose (60-115) mg/dL Calcium (8.4-10.2) mg/dL Monoscreen (Negative) Influenza Type A (PCR) NEGATIVE (Negative) Influenza Type B (PCR) NEGATIVE (Negative) RSV RNA Qual (PCR) NEGATIVE (Negative) SARS-CoV-2 RNA (RT-PCR) NEGATIVE (Negative) S. pyogenes GrpA LULY Negative (Negative) 12/21/22 12/21/22 Range/Units 13:25 13:25 WBC (4.8-10.8) X10*3/uL RBC (4.20-5.50) X10*6/uL Hgb (12.0-16.0) g/dl Hct (37.0-47.0) % MCV (80.0-98.0) fL MCH (27.0-33.0) pg MCHC (31.0-35.0) g/dl RDW (11.0-16.0) % Plt Count (160-400) X10*3/uL MPV (9.4-12.3) fL Immature Gran % (Auto) Neut % (Auto) Lymph % (Auto) [place] % (Auto) Eos % (Auto) Baso % (Auto) Lymph # (Auto) [place] # (Auto) Eos # (Auto) Baso # (Auto) Abs Immat Gran (auto) Absolute Neuts (auto) Absolute Nucleated RBC (0.0-0.012) X10*3/uL Nucleated RBC % (auto) (0.0-0.2) /100WBC Neutrophils % (Manual) (45-73) % Band Neutrophils % (3-5) % Lymphocytes % (Manual) (20-40) % Monocytes % (Manual) (2-11) % Eosinophils % (Manual) (0-4) % Basophils % (Manual) (0-2) % Abs Neuts (Manual) (2.0-8.3) X10*3/uL Lymphocytes # (Manual) (1.2-4.9) X10*3/uL Monocytes # (Manual) (0.1-1.2) X10*3/uL Eosinophils # (Manual) (0.0-0.4) X10*3/uL Basophils # (Manual) (0.0-0.2) X10*3/uL Platelet Estimate (NORMAL) Plt Morphology Comment RBC Morphology Sodium 139 (135-145) mmol/L Potassium 4.5 (3.3-5.1) mmol/L Chloride 106 (96-108) mmol/L Carbon Dioxide 24 (22-29) mmol/L Anion Gap 14 (12-20) BUN 6 L (9-16) mg/dL Creatinine 0.77 (0.5-1.4) mg/dL Estim Creat Clear Calc 93.5 Estimated GFR > 60 Random Glucose 88 (60-115) mg/dL Calcium 9.5 (8.4-10.2) mg/dL Monoscreen Negative (Negative) Influenza Type A (PCR) (Negative) Influenza Type B (PCR) (Negative) RSV RNA Qual (PCR) (Negative) SARS-CoV-2 RNA (RT-PCR) (Negative) S. pyogenes GrpA LULY (Negative) <Gomez Fowler - Last Filed: 12/21/22 14:59> Discharge Plan Discharge Clinical Impression: Sinus pressure <Hanny Gordon NP - Last Filed: 12/21/22 10:51> Patient Disposition: Home, Self-Care <Hanny Gordon NP - Last Filed: 12/21/22 10:51> Instructions: Sinusitis (ED) <Hanny Gordon NP - Last Filed: 12/21/22 10:51> Additional Instructions: Medications as directed It is important that you follow-up with ENT in your PCP Return if symptoms worsen <Hanny Gordon NP - Last Filed: 12/21/22 10:51> Prescriptions: New fluticasone propionate [Aller-Jame] 50 mcg/actuation spray,suspension 2 spray intranasal DAILY Qty: 16 0RF Rx Instructions: administer into each nostril prednisone 20 mg tablet 40 mg PO DAILY 5 Days Qty: 10 0RF cetirizine-pseudoephedrine [All Day Allergy-D] 5-120 mg tablet extended release 12 hr 1 tab PO Q12H PRN (Reason: allergy symptoms) Qty: 30 0RF No Action amoxicillin 875 mg tablet 875 mg PO BID Qty: 14 0RF acetaminophen 500 mg tablet 1,000 mg PO QID PRN (Reason: pain) Qty: 30 0RF ibuprofen 600 mg tablet 600 mg PO Q6H PRN (Reason: pain) Qty: 20 0RF azithromycin 250 mg tablet See Rx Instructions .ROUTE .COMPLEX Qty: 6 0RF Rx Instructions: take 500 mg today (day 1), then 250 mg for 4 days (days 2-5) <Hanny Gordon NP - Last Filed: 12/21/22 10:51>
[2022-12-21 10:49] VITALS: BP 137/96; PULSE 85; RESP 16; TEMP 36.9; O2SAT 100; BMI 24.4
[2022-12-21 11:21] LABS: IDNOW Serial# 6674DD1D; Strep A Nucleic Acid Negative (Negative)
[2022-12-21 11:43] LABS: Influenza A PCR NEGATIVE (Negative); Influenza B PCR NEGATIVE (Negative); Resp Syncy Virus RNA Qual PCR NEGATIVE (Negative); SARS COV2 PCR INHOUSE NEGATIVE (Negative)
[2022-12-21 13:31] LABS: Hematocrit 40.9 % (37.0-47.0); Hemoglobin 13.5 g/dl (12.0-16.0); Mean Corpuscular Hemoglobin 31.1 pg (27.0-33.0); Mean Corpuscular Volume 94.2 fL (80.0-98.0); Mean Platelet Volume 11.6 fL (9.4-12.3); Platelet Count 266 X10*3/uL (160-400); Red Blood Count 4.34 X10*6/uL (4.20-5.50); Red Cell Distribution Width 12.1 % (11.0-16.0)
[2022-12-21 13:32] LABS: WBC ABN SCTR FOR CBC 1
[2022-12-21 13:33] LABS: White Blood Count 6.1 X10*3/uL (4.8-10.8)
[2022-12-21 13:46] LABS: Anion Gap 14 (12-20); Blood Urea Nitrogen 6 mg/dL (9-16); Calcium 9.5 mg/dL (8.4-10.2); Carbon Dioxide 24 mmol/L (22-29); Chloride 106 mmol/L (96-108); Creatinine Clr Calc Pharmacy 93.5; Estimated Glomerular Filt Rate > 60; Glucose Random 88 mg/dL (60-115); Potassium 4.5 mmol/L (3.3-5.1); Sodium 139 mmol/L (135-145)
[2022-12-21 14:06] LABS: Band Neutrophils Percent 0 % (3-5); Basophils Abs Manual 0.1 X10*3/uL (0.0-0.2); Basophils Percent Manual 1 % (0-2); Eosinophils Absolute Manual 0.1 X10*3/uL (0.0-0.4); Eosinophils Percent Manual 1 % (0-4); Lymphocytes Absolute Manual 2.2 X10*3/uL (1.2-4.9); Lymphocytes Percent Manual 36 % (20-40); Monocytes Absolute Manual 0.3 X10*3/uL (0.1-1.2); Monocytes Percent Manual 5 % (2-11); Neutrophils Absolute Manual 3.5 X10*3/uL (2.0-8.3); Neutrophils Percent Manual 57 % (45-73); Platelet Estimate NORMAL (NORMAL); Platelet Morphology Comment NORMAL; RBC Morphology NORMAL
[2022-12-21 14:23] LABS: Monotest Negative (Negative)
== END 2022-12-21 15:06 | disposition home or self-care (01) ==
PROVIDERS: Nurse Practitioner Family; Physician Assistant; Emergency Provider Student in an Organized Health Care Education/Training Program; PCP Family Medicine
DX: J32.9 Chronic sinusitis, unspecified (principal); J02.9 Acute pharyngitis, unspecified; Z20.822 Contact with and (suspected) exposure to COVID-19; Z20.828 Contact with and (suspected) exposure to other viral communicable diseases; Z79.899 Other long term (current) drug therapy
CPT/HCPCS: 0241U; 36415; 70486; 80048; 85007; 85027; 86308; 87651; 99282; 99284

== ENCOUNTER 2022-12-26 11:36 | Outpatient (REF) | payer OTHER, SELFPAY ==
--- NOTE | ~2022-12-26 | XR_ITS ---
EXAMINATION: XR CHEST CLINICAL INFORMATION: Cough. COMPARISON: Chest radiograph 10/01/2018. TECHNIQUE: 2 views of the chest were obtained. FINDINGS: No significant abnormality is noted involving the heart, lungs, mediastinum, bony thorax or soft tissues. XR/XR chest 2V IMPRESSION: Unremarkable examination.
== END 2022-12-26 11:37 | disposition home or self-care (01) ==
LOC: HO.HMGCX 11:36
PROVIDERS: PCP Family Medicine; Visit Provider Internal Medicine
DX: R05.9 Cough, unspecified (principal)
CPT/HCPCS: 71046

== ENCOUNTER 2023-01-03 12:37 | Emergency (ER) | payer OTHER, SELFPAY ==
--- NOTE | ~2023-01-03 | XR_ITS ---
EXAMINATION: XR CHEST CLINICAL INFORMATION: Chest tightness COMPARISON: None TECHNIQUE: 2 views of the chest were obtained. FINDINGS: No significant abnormality is noted involving the heart, lungs, mediastinum, bony thorax or soft tissues. XR/XR chest 2V IMPRESSION: Unremarkable examination.
--- NOTE | 2023-01-03 12:45 | ED_ITS ---
HPI - Chest Pain General Chief Complaint: General Medical <Hanny Gordon NP - Last Filed: 01/03/23 12:48> Stated Complaint: tightness in chest, sob <Hanny Gordon NP - Last Filed: 01/03/23 12:48> Time Seen by Provider: 01/03/23 15:56 <Hanny Gordon NP - Last Filed: 01/03/23 12:48> Source: patient <Kong Loco MD - Last Filed: 01/03/23 17:06> Mode of arrival: ambulatory <Kong Loco MD - Last Filed: 01/03/23 17:06> Limitations: no limitations <Kong Loco MD - Last Filed: 01/03/23 17:06> History of Present Illness HPI narrative: 32-year-old female presents emergency department for evaluation chest tightness, numbness face occurred while she was standing at work. The patient works [employer]. she states that her symptoms came on suddenly resolved by the time I evaluated her. She states that the chest pain was associated with shortness of breath. She states she was feeling very anxious as well. The patient states that she had COVID 19 in October. Shortly after being diagnosed COVID she ate a banana and then felt like she has had improvement in the globus sensation. She states that she has been having chest and abdominal discomfort which is worse after eating and sometimes worse when she is hungry. She states that whenever she swallows she feels like there is a lump in the back her throat. She states she has had no difficulty swallowing solids or liquids and does not choke when she swallows food. She also reports that she has had an unexplained 20 lb weight loss over a 1-2 month.She denied fever, chills, night sweats, nausea, vomiting, diarrhea, dark tarry stools. Patient did see her primary care provider, Dr. Danie Wall on 12/27/2022. He diagnosed the patient with globus and started the patient omeprazole 40 mg once a day for 30 days and sucralfate 1 g orally twice a day for 15 days. Patient states she has had some improvement of her globus sensation since starting these medications. In the provider's note, it states that he was going to check some blood work including thyroid tests, follow the patient up in 2 weeks and of her symptoms had improved pursue a barium swallow and ENT referral. Patient states she never had any blood work done after the visit. <Kong Loco MD - Last Filed: 01/03/23 17:06> Related Data Home Medications: Previous Rx's Medication Instructions Recorded acetaminophen 500 mg tablet 1,000 mg PO QID PRN pain #30 tabs 04/26/21 ibuprofen 600 mg tablet 600 mg PO Q6H PRN pain #20 tabs 04/26/21 azithromycin 250 mg tablet See Rx Instructions PO .COMPLEX #6 12/17/22 tabs cetirizine 5 mg-pseudoephedrine ER 1 tab PO Q12H PRN allergy symptoms 12/21/22 120 mg tablet,extended #30 tabs release,12hr (All Day Allergy-D) fluticasone propionate 50 2 spray intranasal DAILY #16 grams 12/21/22 mcg/actuation nasal spray,suspension (Aller-Jame) prednisone 20 mg tablet 40 mg PO DAILY 5 days #10 tabs 12/21/22 omeprazole 40 mg capsule,delayed 40 mg PO DAILY 30 days #30 caps 12/27/22 release sucralfate 1 gram tablet 1 g PO BID 15 days #30 tabs 12/27/22 <Hanny Gordon NP - Last Filed: 01/03/23 12:48> Allergies/Adverse Reactions: Allergies Allergy/AdvReac Type Severity Reaction Status Date / Time jacki Allergy Unknown HIVES Verified 01/03/23 16:38 <Hanny Gordon NP - Last Filed: 01/03/23 12:48> Review of Systems Review of Systems: Yes all other systems are reviewed and are negative <oKng Loco MD - Last Filed: 01/03/23 17:06> [facility] Past Medical History [facility] Narrative: Past medical history: COVID-19 infection October 2022. Past surgical history: Foot surgery 2007, shoulder surgery several years prior. Social history: She denies tobacco use. She drinks alcohol 2 to 3 times a week. She occasionally smokes marijuana. <Kong Loco MD - Last Filed: 01/03/23 17:06> Medical History: Medical History No known health problems Tonsillitis <Hanny Gordon NP - Last Filed: 01/03/23 12:48> Family History Family History: Family History Other Patient denies medical problems <Hanny Gordon NP - Last Filed: 01/03/23 12:48> Social History Social History: Social History Household Members: Family Housing: Condominium Patient Tobacco Use Status: Never used Tobacco e-Cigarette/Vaping Use: Never Used Second Hand Smoke Exposure: No Advance Directives: No Advance Directives Information Provided: Yes Patient : No service: No Current occupational status: employed Cognitive needs: No Hearing needs: No Vision needs: No <Hanny Gordon NP - Last Filed: 01/03/23 12:48> Physical Exam Vital Signs: Vital Signs: Last Vital Signs Temp 98 F 01/03/23 12:47 Pulse 76 01/03/23 16:37 Resp 15 01/03/23 16:37 BP 134/87 01/03/23 16:37 Pulse Ox 99 01/03/23 16:37 O2 Del Method 01/03/23 16:37 BMI result Body Mass Index 23.3 <Hanny Gordon NP - Last Filed: 01/03/23 12:48> Vital Signs: Last Vital Signs Temp 98 F 01/03/23 12:47 Pulse 76 01/03/23 16:37 Resp 15 01/03/23 16:37 BP 134/87 01/03/23 16:37 Pulse Ox 99 01/03/23 16:37 O2 Del Method 01/03/23 16:37 BMI result Body Mass Index 23.3 Vital signs were normal. <Kong Loco MD - Last Filed: 01/03/23 17:06> General: Awake, alert, female patient, very pleasant cooperative, does not appear to be distress HEENT: Head is normal cephalic, pupils were equal round reactive light, sclera contact however normal, mouth revealed moist membranes with no erythema or exudates Neck: Patient has no adenopathy, there is no palpable neck mass, the patient's thyroid does not appear to be enlarged and I do not feel any masses in her thyroid Lungs: Clear to auscultation Heart: Regular rate rhythm, normal S1-S2, no murmurs rubs or gallops Abdomen: Soft, nontender, nondistended, normal at bowels Back: No CVA tenderness Extremities: Normal Neurologic exam: Nonfocal <Kong Loco MD - Last Filed: 01/03/23 17:06> Course Course Course Narrative: This is rapid medical exam. Deferred additional HPI, ROS, PE to primary provider. 32 yo female healthy here with complaints of chest tightness, numbness around her face/tongue which occurred while at work standing. Will obtain CXR, EKG, labs. VSS <Hanny Gordon NP - Last Filed: 01/03/23 12:48> Medical Decision Making Medical Decision Making MDM Narrative: 32-year-old female who presents emergency department for evaluation of chest pain, shortness of breath and anxiety that started at work and resolved by the time I evaluated the patient. The patient is been having a globus sensation for several months and an unexplained weight loss from 1-2 months (20 lb). Patient was seen by her PCP on 12/27/2022, diagnosed with globus and started on omeprazole 40 mg daily and sucralfate 1 g twice a day. Patient has had some improvement of her globus sensation but I believe she still experiencing GERD like symptoms. I believe that today's chest pain was consistent with GERD which then triggered an anxiety/hyperventilation attack. Laboratory evaluation was ordered by provider at triage. 1657: My independent interpretation the patient's blood work is as follows: CBC was normal. CMP was normal. Troponin was not elevated. TSH with reflex T4 is pending Patient's 12 EKG was unremarkable. Patient's chest x-ray on my interpretation revealed no acute disease, radiolo gy interpretation was the same Given the negative workup, I believe that the patient can be discharged home and follow-up with her PCP for barium swallow and ENT referral. I did tell the patient to continue taking her omeprazole and sucralfate as prescribed and I did advise her to take extra-strength Gaviscon 10 mL in the morning and at night to see if this helps improve her symptoms as well. <Kong Loco MD - Last Filed: 01/03/23 17:06> Differential Diagnosis Differential diagnosis includes but is not limited to GERD, globus, thyroid dysfunction, malignancy, anxiety/hyperventilation syndrome <Kong Loco MD - Last Filed: 01/03/23 17:06> Lab Data [facility] Lab Attestation statement: I reviewed the patient's lab results. <Kong Loco MD - Last Filed: 01/03/23 17:06> See MDM discussion <Kong Loco MD - Last Filed: 01/03/23 17:06> Result Diagrams: 01/03/23 13:09 01/03/23 13:09 <Hanny Gordon NP - Last Filed: 01/03/23 12:48> Labs: Lab Results 01/03/23 01/03/23 01/03/23 Range/Units 13:09 13:09 13:09 WBC 5.1 (4.8-10.8) X10*3/uL RBC 4.50 (4.20-5.50) X10*6/uL Hgb 14.0 (12.0-16.0) g/dl Hct 41.9 (37.0-47.0) % MCV 93.1 (80.0-98.0) fL MCH 31.1 (27.0-33.0) pg MCHC 33.4 (31.0-35.0) g/dl RDW 12.2 (11.0-16.0) % Plt Count 246 (160-400) X10*3/uL MPV 11.3 (9.4-12.3) fL Immature Gran % (Auto) 0.4 (0.0-0.4) % Neut % (Auto) 57.1 (45-73) % Lymph % (Auto) 30.8 (20-40) % [place] % (Auto) 10.1 (2-11) % Eos % (Auto) 0.8 (0-4) % Baso % (Auto) 0.8 (0-2) % Lymph # (Auto) 1.6 (1.2-4.9) X10*3/uL [place] # (Auto) 0.5 (0.1-1.2) X10*3/uL Eos # (Auto) 0.0 (0.0-0.4) X10*3/uL Baso # (Auto) 0.0 (0.0-0.2) X10*3/uL Abs Immat Gran (auto) 0.02 (0.00-0.03) X10*3/uL Absolute Neuts (auto) 2.9 (2.0-8.3) x10*3/uL Absolute Nucleated RBC 0.000 (0.0-0.012) X10*3/uL Nucleated RBC % (auto) 0.0 (0.0-0.2) /100WBC Sodium 139 (135-145) mmol/L Potassium 4.0 (3.3-5.1) mmol/L Chloride 108 (96-108) mmol/L Carbon Dioxide 21 L (22-29) mmol/L Anion Gap 14 (12-20) BUN 5 L (9-16) mg/dL Creatinine 0.74 (0.5-1.4) mg/dL Estim Creat Clear Calc 97.2 Estimated GFR > 60 Random Glucose 84 (60-115) mg/dL Calcium 9.6 (8.4-10.2) mg/dL Magnesium 2.0 (1.6-2.6) mg/dL Total Bilirubin 0.4 (0.0-1.0) mg/dL Direct Bilirubin 0.2 (0.0-0.5) mg/dL AST 12 (5-31) U/L ALT 8 (0-31) U/L Alkaline Phosphatase 48 (39-117) U/L Troponin I High Sens < 3.5 (<3.5-17.0) ng/L Total Protein 7.0 (6.5-8.0) g/dL Albumin 4.0 (3.5-5.0) g/dL <Hanny Gordon, EDI MANAGER - Last Filed: 01/03/23 12:48> Lab Results 01/03/23 01/03/23 01/03/23 Range/Units 13:09 13:09 13:09 WBC 5.1 (4.8-10.8) X10*3/uL RBC 4.50 (4.20-5.50) X10*6/uL Hgb 14.0 (12.0-16.0) g/dl Hct 41.9 (37.0-47.0) % MCV 93.1 (80.0-98.0) fL MCH 31.1 (27.0-33.0) pg MCHC 33.4 (31.0-35.0) g/dl RDW 12.2 (11.0-16.0) % Plt Count 246 (160-400) X10*3/uL MPV 11.3 (9.4-12.3) fL Immature Gran % (Auto) 0.4 (0.0-0.4) % Neut % (Auto) 57.1 (45-73) % Lymph % (Auto) 30.8 (20-40) % [place] % (Auto) 10.1 (2-11) % Eos % (Auto) 0.8 (0-4) % Baso % (Auto) 0.8 (0-2) % Lymph # (Auto) 1.6 (1.2-4.9) X10*3/uL [place] # (Auto) 0.5 (0.1-1.2) X10*3/uL Eos # (Auto) 0.0 (0.0-0.4) X10*3/uL Baso # (Auto) 0.0 (0.0-0.2) X10*3/uL Abs Immat Gran (auto) 0.02 (0.00-0.03) X10*3/uL Absolute Neuts (auto) 2.9 (2.0-8.3) x10*3/uL Absolute Nucleated RBC 0.000 (0.0-0.012) X10*3/uL Nucleated RBC % (auto) 0.0 (0.0-0.2) /100WBC Sodium 139 (135-145) mmol/L Potassium 4.0 (3.3-5.1) mmol/L Chloride 108 (96-108) mmol/L Carbon Dioxide 21 L (22-29) mmol/L Anion Gap 14 (12-20) BUN 5 L (9-16) mg/dL Creatinine 0.74 (0.5-1.4) mg/dL Estim Creat Clear Calc 97.2 Estimated GFR > 60 Random Glucose 84 (60-115) mg/dL Calcium 9.6 (8.4-10.2) mg/dL Magnesium 2.0 (1.6-2.6) mg/dL Total Bilirubin 0.4 (0.0-1.0) mg/dL Direct Bilirubin 0.2 (0.0-0.5) mg/dL AST 12 (5-31) U/L ALT 8 (0-31) U/L Alkaline Phosphatase 48 (39-117) U/L Troponin I High Sens < 3.5 (<3.5-17.0) ng/L Total Protein 7.0 (6.5-8.0) g/dL Albumin 4.0 (3.5-5.0) g/dL <Kong Loco MD - Last Filed: 01/03/23 17:06> Independent Interpretation I performed an independent interpretation of an: EKG and Plain X-Ray <Kong Loco MD - Last Filed: 01/03/23 17:06> Interpretation: My independent interpretation of the patient's EKG done at 1301 is as follows: Normal sinus rhythm with a rate of 89, normal [place] interval, QRS duration QTC interval, no ST segment elevation, no ST segment depression, no PAC s, no PVCs compared to EKG dated 11/28/2017 there is no significant change. My independent interpretation the patient's two-view chest x-ray is as follows: No acute disease. <Kong Lcoo MD - Last Filed: 01/03/23 17:06> Radiology Impression Discussion of test interpretation with radiology: I have reviewed the radiologist's reading. <Kong Loco MD - Last Filed: 01/03/23 17:06> Radiologist Impression: XR chest 2V IMPRESSION: Unremarkable examination. Dictated By:Hai Sánchez MDSigned By:<Electronically signed by Hai Sánchez MD in [place]>01/03/23 1417 <Kong Loco MD - Last Filed: 01/03/23 17:06> Independent Historian Clinical information obtained from an independent historian. History obtained from or confirmed by: Spouse (José Miguel) <Kong Loco MD - Last Filed: 01/03/23 17:06> External Record Review External record reviewed: Office record <Kong Loco MD - Last Filed: 01/03/23 17:06> Discharge Plan Discharge Clinical Impression: Globus sensation, Chest pain due to GERD, Unintended weight loss, Anxiety <Hanny Gordon NP - Last Filed: 01/03/23 12:48> Patient Disposition: Home, Self-Care <Hanny Gordon NP - Last Filed: 01/03/23 12:48> Instructions: Gastroesophageal Reflux Disease (ED) <Hanny Gordon NP - Last Filed: 01/03/23 12:48> Additional Instructions: You had a complete blood count (CBC), comprehensive metabolic panel (CMP) high sensitivity troponin I (marker of heart damage) which were all normal which is very reassuring. Your EKG was normal Your two-view chest x-ray was normal. At this time I believe that your chest pain is related to too much stomach acid causing inflammation in your stomach and inflammation on your esophagus and this then triggered an anxiety attack in you. Continue taking the omeprazole 40 mg once a day and sucralfate 1 g twice a day as prescribed by your provider I want you to also take extra-strength Gaviscon 10 mL( 2 tsp) once in the morning for for breakfast and once at night for 1 week to see if this helps improve your symptoms as well. You have a thyroid screening test (TSH with reflex T4) which is pending. If this comes back today I will contact you with the results. You can also check this result on the patient portal Make sure you keep your follow-up appointment with your primary care provider Follow-up with your doctor in 2 days. Please return to the emergency department if your symptoms get worse or if you develop any symptoms that are concerning to you. <Hanny Gordon NP - Last Filed: 01/03/23 12:48> Prescriptions: No Action acetaminophen 500 mg tablet 1,000 mg PO QID PRN (Reason: pain) Qty: 30 0RF ibuprofen 600 mg tablet 600 mg PO Q6H PRN (Reason: pain) Qty: 20 0RF fluticasone propionate [Aller-Jame] 50 mcg/actuation spray,suspension 2 spray intranasal DAILY Qty: 16 0RF Rx Instructions: administer into each nostril prednisone 20 mg tablet 40 mg PO DAILY 5 Days Qty: 10 0RF cetirizine-pseudoephedrine [All Day Allergy-D] 5-120 mg tablet extended release 12 hr 1 tab PO Q12H PRN (Reason: allergy symptoms) Qty: 30 0RF azithromycin 250 mg tablet See Rx Instructions .ROUTE .COMPLEX Qty: 6 0RF Rx Instructions: take 500 mg today (day 1), then 250 mg for 4 days (days 2-5) omeprazole 40 mg capsule,delayed release(DR/EC) 40 mg PO DAILY 30 Days Qty: 30 0RF sucralfate 1 gram tablet 1 g PO BID 15 Days Qty: 30 0RF <Hanny Gordon EDI MANAGER - Last Filed: 01/03/23 12:48>
[2023-01-03 12:47] VITALS: BP 137/94; PULSE 94; RESP 19; TEMP 36.6; O2SAT 100; BMI 23.3
--- NOTE | 2023-01-03 12:47 | ECG_ITS ---
Test Reason : tightness Blood Pressure : / mmHG Vent. Rate : 089 BPM Atrial Rate : 089 BPM P-R Int : 130 ms QRS Dur : 086 ms QT Int : 352 ms P-R-T Axes : 036 038 033 degrees QTc Int : 428 ms Normal sinus rhythm Normal ECG When compared with ECG of 28-NOV-2017 16:31, No significant change was found Referred By: Hanny Gordon Electronically Signed By:KAREN GRULLON MD
[2023-01-03 13:12] LABS: MANUAL DIFF FLAG NO
[2023-01-03 13:19] LABS: Basophils Percent Auto 0.8 % (0-2); Eosinophils Percent Auto 0.8 % (0-4); Hematocrit 41.9 % (37.0-47.0); Imm Gran Abs Auto 0.02 X10*3/uL (0.00-0.03); Imm Gran Pct Auto 0.4 % (0.0-0.4); Lymphocytes Absolute Auto 1.6 X10*3/uL (1.2-4.9); Lymphocytes Percent Auto 30.8 % (20-40); Mean Corpuscular HGB Conc 33.4 g/dl (31.0-35.0); Mean Corpuscular Hemoglobin 31.1 pg (27.0-33.0); Mean Corpuscular Volume 93.1 fL (80.0-98.0); Mean Platelet Volume 11.3 fL (9.4-12.3); Monocytes Absolute Auto 0.5 X10*3/uL (0.1-1.2); Monocytes Percent Auto 10.1 % (2-11); Neutrophils Absolute Auto 2.9 x10*3/uL (2.0-8.3); Neutrophils Percent Auto 57.1 % (45-73); Platelet Count 246 X10*3/uL (160-400); Red Cell Distribution Width 12.2 % (11.0-16.0); White Blood Count 5.1 X10*3/uL (4.8-10.8)
[2023-01-03 13:38] LABS: Alanine Aminotransferase 8 U/L (0-31); Alkaline Phosphatase 48 U/L (39-117); Anion Gap 14 (12-20); Aspartate Amino Transferase 12 U/L (5-31); Bilirubin Direct 0.2 mg/dL (0.0-0.5); Bilirubin Total 0.4 mg/dL (0.0-1.0); Blood Urea Nitrogen 5 mg/dL (9-16); Calcium 9.6 mg/dL (8.4-10.2); Carbon Dioxide 21 mmol/L (22-29); Chloride 108 mmol/L (96-108); Creatinine Clr Calc Pharmacy 97.2; Estimated Glomerular Filt Rate > 60; Glucose Random 84 mg/dL (60-115); Sodium 139 mmol/L (135-145)
[2023-01-03 13:50] LABS: Troponin-I High Sensitivity < 3.5 ng/L (<3.5-17.0)
--- NOTE | 2023-01-03 16:07 | PC.NURSE ---
pt resting on stretcher at this time, pt describes mild CP after eating, has been seen before for this issue. Denies shortness of breath or other symptoms at this time
[2023-01-03 16:37] VITALS: BP 134/87; PULSE 76; RESP 15; O2SAT 99
[2023-01-03 17:03] LABS: TSH reflex Free T4 0.41 uIU/mL (0.32-4.0)
== END 2023-01-03 17:12 | disposition home or self-care (01) ==
PROVIDERS: Nurse Practitioner Family; Emergency Provider Emergency Medicine Emergency Medical Services; PCP Family Medicine
DX: R09.89 Other specified symptoms and signs involving the circulatory and respiratory systems (principal); R07.89 Other chest pain; K21.9 Gastro-esophageal reflux disease without esophagitis; F41.9 Anxiety disorder, unspecified; R06.02 Shortness of breath; R63.4 Abnormal weight loss; Z68.23 Body mass index [BMI] 23.0-23.9, adult
CPT/HCPCS: 36415; 71046; 80048; 80076; 83735; 84443; 84484; 85025; 93005; 99283; 99284

== ENCOUNTER 2023-01-31 14:20 | Outpatient (REF) | payer OTHER, SELFPAY ==
--- NOTE | ~2023-01-31 | FL_ITS ---
EXAMINATION: XR BARIUM SWALLOW CLINICAL INFORMATION: Dysphasia. COMPARISON: None. TECHNIQUE: Modified barium swallow with speech pathologist. FINDINGS: There is normal apposition of vocal cords while saying E. There is normal elevation of the soft palate while saying candy. Multiple consistencies from thin liquid to barium coated cookie were given to the patient. There is no evidence of nasopharyngeal reflux or tracheal aspiration. No significant abnormality was appreciated. Please refer to speech pathology report for details. FLUOROSCOPY TIME: 1 minute. DOSE AREA PRODUCT: 0.611 Gy-cm2 (cameron-centimeter squared) FL/FL barium swallow modified IMPRESSION: Unremarkable examination. Please refer to speech pathology report for details.
--- NOTE | 2023-01-31 16:46 | MHC.SL.IMP ---
Date of Plan of Treatment: 01/31/23 Onset of Symptoms/Illness: 11/14/22 Date Treatment Started: 01/31/23 Admitting Diagnosis: Hx COVID19 infection Primary Speech & Language Diagnosis: R13.13 Pharyngeal Phase Dysphagia Reason for Today's Visit: 01078 Modified Barium Swallow Study Pre-evaluation Dietary Consistencies: Regular Pre-evaluation Liquid Consistency: Thin Pre-evaluation Medication Administration: Whole with Liquid Medical History: [facility] [place] Modified Barium Swallow Study Fluoroscopic Evaluation of Swallowing Function CPT Code 64295 Evaluation Year: 2022 Reason for Study: Patient reports globus sensation. Referring Physician: Danie Wall MD Evaluating Clinician: Claudia Charles MA, CCC-HEEL SEAT SANDER Study Number: 1 Patient Name: Anne-Marie Peoples Status: Outpatient, Ambulatory Age: 32 Gender: Female MEDICAL HISTORY: Year of Onset or Diagnosis: 2022 Past Medical History: Hx COVID19 infection Current (pre-evaluation) Intake/Diet: Route: PO Diet Grade: Regular Liquid Consistencies: Thin Pre-Study Functional Oral Intake Scale (FOIS): 7- Total oral intake with no restrictions Pain: None reported at time of study SUBJECTIVE: Pt is a 32 year old female referred for a modified barium swallow study by her primary care physician, Danie Wall MD. Pt reports feeling tightness in her chest and a ?knot in her throat? when turning her head, laying down, or after eating a large meal. Pt was prescribed omeprazole, sucralfate, and Gaviscon for suspicion of GERD. Pt reported that the medication has helped, but that she still experiences globus sensation in the right side of her throat. Pt denied pain when swallowing. Pt denied coughing or choking when swallowing; denied having any difficulty swallowing solids and liquids. Pt reported onset of these symptoms after she had COVID19 infection in October 2022. Oral Motor Exam Facial Symmetry: Symmetrical Mouth Occlusion: Normal Oral-Facial Teeth Characteristics: Intact/Normal Oral-Facial Lip Pucker Description: Normal Oral-Facial Smile (Lips) Description: Normal Oral-Facial Puff Cheeks Description: Normal Tongue Size: Normal Tongue Excursion Description: Normal Tongue Range of Movement Description: Normal Tongue Speed of Movement Description: Normal Tongue Strength of Movement (against opposing pressure): Normal Tongue Movement Characteristics: Normal/Absent Oral Expression Ability: No Impairment Is patient able to manage secretions?: Yes Is patient able to produce volitional cough?: Yes Food and Liquid Trials: Oral Impairment: Lip Closure: Did not test Oral Impairment: Tongue Control During Bolus Hold: 0=Cohesive bolus between tongue to palatal seal Oral Impairment: Bolus Preparation/Mastication: 0=Timely and efficient chewing and mashing Oral Impairment: Bolus Transport/Lingual Motion: 0=Brisk tongue motion Oral Impairment: Oral Residue: 0=Complete oral clearance Oral Impairment:Initiation of Pharyngeal Swallow: 0=Bolus head at posterior angle of ramus (first hyoid excursion) Pharyngeal Impairment: Soft Palate Elevation: 0=No bolus between soft palate (SP)/pharyngeal wall (PW) Pharyngeal Impairment: Laryngeal Elevation: 0=Complete superior movement of thyroid cartilage (see description) Pharyngeal Impairment: Anterior Hyoid Excursion: 0=Complete anterior movement Pharyngeal Impairment: Epiglottic Movement: 0=Complete inversion Pharyngeal Impairment: Laryngeal Vestibular Closure:: 0=Complete: no air/contrast in laryngeal vestibule Pharyngeal Impairment: Pharyngeal Stripping Wave: 0=Present: complete Pharyngeal Impairment: Pharyngeal Contraction: 0=Complete Pharyngeal Impairment: Pharyngoesophageal Segment Openin=Complete distension and complete duration: no obstruction of flow Pharyngeal Impairment: Tongue Base (TB) Retraction: 0=No contrast between tongue base and posterior pharyngeal wall Pharyngeal Impairment: Pharyngeal Residue: 0=Complete pharyngeal clearance Pharyngeal Impairment: Esophageal Clearance Upright Position: 0=Complete clearance: esophageal coating Impressions and Recommendations OBJECTIVE: Time-out: performed at 02:35 Evaluation Start: 02:30; Stop: 02:31 Patient Positioning: Standing Viewing Planes: LAT & AP Contrast: MBSImP? Standardized Protocol using commercially prepared, standardized Barium viscosities, including: Varibar? THIN LIQUID (40% w/v, <15 cps) , 1/2 Shortbread Cookie (1 x1 x.25 ) MBSImP ID: [id number] MBSImP Results: Lip closure for intraoral bolus containment could not be assessed due to logistical reasons not related to physiologic impairment. Tongue control during bolus hold maintained a cohesive bolus held between tongue to palate seal. Bolus preparation and mastication resulted in timely and efficient chewing and mashing. Bolus transport/lingual motion was with brisk tongue motion. Oral residue was not observed. There was complete oral clearance. Initiation of the pharyngeal swallow occurred as the bolus head reached the posterior angle of the mandibular ramus. Soft palate elevation resulted in no bolus between the soft palate and the pharyngeal wall. Laryngeal elevation demonstrated complete superior movement of the thyroid cartilage with complete approximation of the arytenoids to the epiglottic petiole. Anterior hyoid excursion demonstrated complete anterior movement. Epiglottic movement resulted in complete inversion. Laryngeal vestibular closure was complete, as indicated by no air or contrast within the laryngeal vestibule at the height of the swallow. Pharyngeal stripping wave was present and complete. Pharyngeal contraction was complete. Pharyngoesophageal segment opening was completely distended for complete duration with no obstruction of bolus flow. Tongue base retraction allowed no contrast between the retracted tongue base and the posterior pharyngeal wall. Pharyngeal residue was not present. There was complete pharyngeal clearance. Esophageal clearance in the upright position was complete, with only a coating of contrast, if any. Oral Impairment Score: 0 (absence of score, component 1) Pharyngeal Impairment Score: 0 Esophageal Impairment Score: 0 Laryngeal Penetration and Aspiration: Neither penetration nor aspiration was observed in today's study with Luiza Thin. ASSESSMENT: Clinician Assessment: This exam was conducted by a multidisciplinary team, which included a speech pathologist, radiologist, and boiler technician. Pt stood for AP and lateral views. Pt trialed the following liquid and solid consistencies: 5 mL thin liquid barium, individual cup sip with bolus hold thin liquid barium, sequential sips thin liquid barium by cup, pureed solid (applesauce mixed with barium paste), regular solid (Paola Doone shortbread cookie coated with barium paste), barium pill tablet with sips of water. Pt was able to feed herself without difficulty. Pt clinically presented with good oral containment. When instructed to hold bolus in her mouth, pt maintained a cohesive bolus between tongue to palatal seal. There was no premature posterior escape of bolus. Mastication was timely and efficient. Lingual motion for the posterior transport of bolus was brisk and timely. There was complete oral clearance. Pharyngeal swallow trigger was timely, initiated as bolus head reached the posterior angle of the ramus. No nasopharyngeal reflux. Laryngeal elevation was complete with complete anterior hyoid excursion, complete epiglottic inversion, and complete laryngeal vestibular closure. There was complete pharyngeal clearance and no obstruction of flow through the pharyngoesophageal segment opening. Pt swallowed barium pill tablet with sips of water. The pill tablet passed through the oropharynx and esophagus with no hang up. No evidence of aspiration or penetration with intake of solids and liquids during this exam. Liquid Intake Recommendation: Thin Liquid Intake Strategies: Unrestricted Dietary Recommendations: Regular Medication Administration: Whole with Liquid Please contact the pharmacy regarding appropriate crushable or liquid drug formulations that are available whenever modified delivery is recommended. Compensatory Strategies Recommended: Sitting Upright (90 deg), Alternate Liquids/Solids, Rate of Ingestion Change Supervision during eating and or drinking: None Needed Recommendation for Speech Therapy: NA:Typical Evaluation Intake Recommendations: Route: PO Diet Grade: Regular Liquid Consistencies: Thin Post-Study Functional Oral Intake Scale (FOIS): 7- Total oral intake with no restrictions There was good clearance of oral and pharyngeal structures. No evidence of aspiration or penetration during this exam. This exam was unremarkable. Recommend continue workup of globus sensation with G.I. specialist and ENT. Suggested Referrals: -Gastroenterology -Otolaryngology Therapy Recommendations: Therapy will be discontinued as swallow is deemed WFL Prognosis for Improvement: The prognosis for the patient to meet nutritional needs by mouth is excellent Clinician - Supplemental, Miscellaneous Communication: It is important to note MBSS objective studies are snapshots in time and Patient function might vary with factors such as time of day or concomitant medical conditions. For this reason, the final treatment plan for this patient should rest with their medical care team. Additional recommendations should be considered with the totality of the Patient in mind. Thank for the opportunity to participate in the care of this patient. If you have any questions about the content of this report, please contact the [facility] at [facility]. Education: Education regarding findings from today's study and plans for therapy were provided to Patient only through Verbal Instruction. Understanding was expressed by the Patient only. Vending Machine Assembler Clinician/Clinical Fellow: No Supervisory Statement: N/A Speech Language Pathologist: Claudia Charles M.A., CCC-HEEL SEAT SANDER
== END 2023-01-31 14:21 | disposition home or self-care (01) ==
LOC: HO.XRAY 14:20
PROVIDERS: Visit Provider Family Medicine
DX: R13.13 Dysphagia, pharyngeal phase (principal); R09.89 Other specified symptoms and signs involving the circulatory and respiratory systems; Z86.16 Personal history of COVID-19
CPT/HCPCS: 74230; 92611

== ENCOUNTER 2023-03-14 11:14 | Outpatient (REF) | payer OTHER, SELFPAY ==
[2023-03-14 14:55] LABS: Anion Gap 13 (12-20); Blood Urea Nitrogen 9 mg/dL (9-16); Calcium 9.2 mg/dL (8.4-10.2); Carbon Dioxide 25 mmol/L (22-29); Chloride 107 mmol/L (96-108); Cholesterol 213 mg/dL; Estimated Glomerular Filt Rate > 60; Glucose Fasting 83 mg/dL (60-99); HDL Cholesterol 61 mg/dL; LDL Cholesterol Calculated 139 mg/dl; Potassium 5.1 mmol/L (3.3-5.1); Sodium 140 mmol/L (135-145); Triglycerides 68 mg/dL
== END 2023-03-14 11:15 | disposition home or self-care (01) ==
LOC: HO.WFDLDS 11:14
PROVIDERS: Visit Provider Family Medicine
DX: Z00.00 Encounter for general adult medical examination without abnormal findings (principal); F41.9 Anxiety disorder, unspecified; R09.89 Other specified symptoms and signs involving the circulatory and respiratory systems
CPT/HCPCS: 36415; 80048; 80061

== ENCOUNTER 2023-10-16 11:40 | Outpatient (AMB) | payer OTHER, SELFPAY ==
[2023-10-16 11:44] VITALS: BP 106/68; PULSE 100; RESP 13; O2SAT 100; BMI 28.2
--- NOTE | 2023-10-16 11:44 | MHC.PC.OV ---
Vital Signs 10/16/23 11:44 Height 5 ft 5 in Weight 169 lb 8 oz BMI 28.2 BP 106/68 Blood Pressure Location Rt brachial Position Sitting Respiration 13 Pulse 100 Pulse Source Pulse Oximeter Pulse Oximetry (%) 100 Oxygen Delivery Method Room Air Intake Visit Reasons: Globus sensation in throat Intake Note: Patient reports she was previous treated for a globus sensation in her throat with omeprazole. Patient reports she felt better, stopped taking the medication and did not refill any more. Patient reports the sensation has been back for 4-8 weeks. Patient reports she tried OTC medication which did not help. Patient is requesting an RX for omeprazole and a referral to GI. Patient has no preference to a specific GI. Maintenance Manager Required: No Accompanied by: Self / Same As Patient Allergies jacki Allergy (Unknown, Verified 10/16/23 11:50) HIVES Tobacco use date assessed: 02/01/23 HPI Globus sensation in throat HPI Details 33 y/o female presents with complaints of globus sensation in throat. Patient reports she was previous treated for a globus sensation in her throat with omeprazole. Patient reports she felt better, stopped taking the medication and did not refill any more. Patient reports the sensation has been back for 4-8 weeks. Patient reports she tried OTC medication which did not help. Patient is requesting an RX for omeprazole and a referral to GI. Patient has no preference to a specific GI. Pt reports shakiness/dizziness that she questions whether or not could be hypoglycemia. [facility] Medical History No known health problems Tonsillitis Family History Other Patient denies medical problems Household Members: Family Housing: [facility] Patient Tobacco Use Status: Never used Tobacco e-Cigarette/Vaping Use: Never Used Second Hand Smoke Exposure: No service: No Current occupational status: employed Cognitive needs: No Hearing needs: No Vision needs: No Questionnaire Thrive Questionnaire Date Thrive assessed: 12/27/22 JAMEEL-7 AMB Questionnaire JAMEEL-7 Date JAMEEL - 7 assessed: 12/27/22 Source: Developed by Drs. Ramone Mayfield, Maisha Balbuena, Ap Chand and colleagues, with an educational charity from [employer]. Review of Systems Const Denies chills, Denies fatigue, Denies fever(s), Denies headache(s) and Denies weakness ENT Denies dizziness and Denies headache(s) Card Denies dyspnea Resp Denies cough, Denies dyspnea, Denies wheezing and Denies other (shortness of breath) Musc Denies numbness and Denies tingling Neuro Denies dizziness, Denies headache(s), Denies numbness, Denies tingling and Denies weakness Psych Denies anxiety and Denies depression Endo Denies fatigue Aller/Immun Denies wheezing Physical exam (Primary Care) Vital Signs: Last Vital Signs Pulse 100 10/16/23 11:44 Resp 13 10/16/23 11:44 BP 106/68 10/16/23 11:44 Pulse Ox 100 10/16/23 11:44 Oxygen Delivery Method Room Air 10/16/23 11:44 BMI result Body Mass Index 28.2 Tobacco/Smoking Status: Tobacco use Status Tobacco use date assessed 02/01/23 10/16/23 11:51 Patient Tobacco Use Status Never used Tobacco 10/16/23 11:51 e-Cigarette/Vaping Use Never Used 10/16/23 11:51 Thrive Assessment: Date of Thrive Assessment Date Thrive assessed 12/27/22 10/16/23 11:51 Const General: well developed; No acute distress Nutritional Appearance: well nourished Orientation/consciousness: patient oriented x3 [facility] Head: Yes normocephalic and Yes atraumatic Eyes General: appearance normal, both eyes and all related structures Pupils: Equal, round and reactive pupils present EOM: EOMs intact bilaterally Resp Effort & Inspection: normal respiratory effort Neuro General: patient oriented x3 and gait normal Cranial nerves: Yes Equal, round and reactive pupils present Psych Affect: normal affect Assessment and Plan Assessment & Plan (1) Globus sensation: Code(s): R09.89 - Other specified symptoms and signs involving the circulatory and respiratory systems Plan: Globus?sensation?which?previously?improved?with?omeprazole. Modified?barium?swallow?was?unremarkable Will?start?omeprazole?again?and?refer?her?to?GI (2) Shakiness: Code(s): R25.1 - Tremor, unspecified Plan: Some?shakiness?which?patient?relates?to?feeling?like?hypoglycemia and?is?sometimes?associated?with?not?eating. Encouraged?improved?hydration?and?regular?meals?or?snacks?such?as?a?bag?of?nuts. Does?not?have?to?be?sugar?snack?as?it?is?unlikely?she?has?hypoglycemia If?not?improving?we?will?workup?further Orders: Referrals Gastroenterology Referral R09.89 - Other specified symptoms and signs involving the circulatory and respiratory systems Medications: Refilled omeprazole 40 mg PO DAILY 30 caps 3RF 30 days Coding Level of Care Code Est Pt Level 3 (69159) Diagnoses Globus sensation R09.89 Shakiness R25.1
== END 2023-10-16 12:06 | disposition home or self-care (01) ==
PROVIDERS: PCP Family Medicine; Visit Provider Family Medicine
DX: R09.89 Other specified symptoms and signs involving the circulatory and respiratory systems (principal); R25.1 Tremor, unspecified
CPT/HCPCS: 99213

== ENCOUNTER 2023-12-26 10:48 | Outpatient (AMB) | payer OTHER, SELFPAY ==
--- NOTE | 2023-12-26 11:02 | MHC.OFFVIS ---
Intake Vital Signs 12/26/23 11:06 Height 5 ft 5 in Weight 166 lb BMI 27.6 BP 138/83 Blood Pressure Location Lt brachial Position Sitting Pulse 88 Intake Visit Reasons: Globus sensation Intake Note: Patient new consult for Globus sensation. Patient cc: acid reflex with burning sensation and numbness on her end of tongue, and gassy. Desulfurizer Operator Required: No Accompanied by: Spouse Allergies jacki Allergy (Unknown, Verified 12/26/23 11:01) HIVES HPI Globus sensation HPI Details 33-year-old female with no significant past medical history is here today for initial consultation. Patient is here today for evaluation of her symptoms that have been going on for several months. Patient reports that last year she had banana and after finishing banana she felt like she had something stuck in her throat. Patient had seen stoneworker and ENT specialist. Patient was diagnosed with ragweed allergy. Patient was not tested for any food allergies. Patient is in taking Zyrtec every day. Takes Flonase on as needed basis. Patient reports postnasal drip, scratchy throat. Feels like something is stuck in her the whole time. Patient states that when she even turns her head feels like there is something stuck in there. More patient had x-ray of the neck as well as scoping done by ENT specialist and was told that she is fine. Patient reports dyspepsia and dysphagia and occasional odynophagia. Patient reports that she usually eats late at night. Sometimes eats heavy meals. Last night patient ate mashed potatoes and steak. Patient reports postprandial abdominal bloating and epigastric discomfort. Patient was started on omeprazole, however states that she continues to have symptoms. Patient had modified barium swallow done in January of 2023 that was normal. Speech pathology notes: There was good clearance of oral and pharyngeal structures. No evidence of aspiration or penetration during this exam. [facility] Medical History (Updated 10/16/23 @ 12:02 by Geoff Mccauley) Tonsillitis No known health problems Surgical History (Updated 12/26/23 @ 11:12 by Estelle Jaime) Hx of shoulder surgery Hx of foot operation Family History (Updated 12/26/23 @ 11:13 by Estelle Jaime) Father HTN (hypertension) Social History Household Members: Family Housing: [facility] Patient Tobacco Use Status: Never used Tobacco e-Cigarette/Vaping Use: Never Used Second Hand Smoke Exposure: No service: No Current occupational status: employed Cognitive needs: No Hearing needs: No Vision needs: No Review of Systems Const Denies weight gain and Denies weight loss ENT Reports no additional complaints, Denies dysphagia and Denies odynophagia Card Reports no additional complaints Resp Reports no additional complaints GI Denies abdominal pain, Denies belching, Denies melena, Denies bloating, Denies change in bowel habits, Denies dysphagia, Denies excessive flatus, Denies dyspepsia, Denies heartburn, Denies diarrhea, Denies loose stools, Denies nausea, Denies odynophagia and Denies vomiting Musc Reports no additional complaints Neuro Reports no additional complaints Psych Reports no additional complaints Endo Reports no additional complaints Physical Exam Vital Signs: Last Vital Signs Pulse 88 12/26/23 11:06 BP 138/83 12/26/23 11:06 BMI result Body Mass Index 27.6 Assessment & Plan Assessment & Plan (1) Globus sensation: Code(s): R09.89 - Other specified symptoms and signs involving the circulatory and respiratory systems (2) Postprandial abdominal bloating: Code(s): R14.0 - Abdominal distension (gaseous) (3) Postprandial epigastric pain: Code(s): R10.13 - Epigastric pain (4) GERD (gastroesophageal reflux disease): Code(s): K21.9 - Gastro-esophageal reflux disease without esophagitis Qualifiers: Esophagitis presence: esophagitis presence not specified Qualified Code(s): K21.9 - Gastro-esophageal reflux disease without esophagitis Plan Will send patient for barium swallow to evaluate for reflux, Schatzki ring, achalasia before sending patient for upper endoscopy. Patient will stop taking omeprazole and we will start her on pantoprazole. Patient will also take famotidine at bedtime. Patient will avoid dietary triggers and late night snacking. Staying upright for minimum 3 hours after meals discussed with patient. Will check for H pylori and treat empirically if positive. Will do food allergy, RAST allergen test ordered. Epigastric discomfort could be related to celiac disease will check transglutaminase, will check lipase to rule out chronic pancreatitis. Patient will avoid NSAIDs. Low FODMAP diet discussed with patient. List of food recommended as well as list of food to avoid given to patient. Given her symptoms of postprandial abdominal bloating patient my tried elimination diet to help with symptoms. Patient will be seen in the office in 5 weeks, sooner on as needed basis. Patient is agreeable to this plan and verbalizes understanding of instructions. She was given the opportunity to ask questions and all questions answered. Thank you for allowing me to participate in her care Orders: Orders Rast Allergen Today K21.9 - Gastro-esophageal reflux disease without esophagitis H pylori Ag Stool Today K21.9 - Gastro-esophageal reflux disease without esophagitis Transglutaminase Ab IgG Today R10.9 - Unspecified abdominal pain Transglutaminase IgA Today R10.9 - Unspecified abdominal pain Lipase Today R10.9 - Unspecified abdominal pain FL upper GI w Ba Swallow Today R13.10 - Dysphagia, unspecified Medications: New pantoprazole take one tablet half an hour before breakfast 40 mg PO DAILY 30 tabs 2RF K21.9 - Gastro-esophageal reflux disease without esophagitis fluticasone propionate 50 mcg/actuation (Flonase Allergy Relief) administer into each nostril twice a day for 2 weeks and daily 1 spray intranasal BID 16 grams 0RF R09.89 - Other specified symptoms and signs involving the circulatory and respiratory systems famotidine (Pepcid) 20 mg PO BEDTIME 30 tabs 3RF K21.9 - Gastro-esophageal reflux disease without esophagitis Discontinued omeprazole Discontinued Reason: Doctor's Order 40 mg PO DAILY 30 days 30 caps 3RF Coding Level of Care Code New Pt Level 4 (05731) Diagnoses Globus sensation R09.89 Postprandial abdominal bloating R14.0 Postprandial epigastric pain R10.13 Gastroesophageal reflux disease, unspecified whether esophagitis present K21.9 Esophagitis presence: esophagitis presence not specified Time Spent (min) 45 Comment 30 minutes spent with patient and additional 15 minutes spent reviewing her records
[2023-12-26 11:06] VITALS: BP 138/83; PULSE 88; BMI 27.6
== END 2023-12-26 11:49 | disposition home or self-care (01) ==
PROVIDERS: PCP Family Medicine; Visit Provider Nurse Practitioner Family
DX: R09.89 Other specified symptoms and signs involving the circulatory and respiratory systems (principal); R14.0 Abdominal distension (gaseous); R10.13 Epigastric pain; K21.9 Gastro-esophageal reflux disease without esophagitis
CPT/HCPCS: 99204

== ENCOUNTER 2023-12-26 10:48 | Outpatient (REF) | payer OTHER, SELFPAY ==
[2023-12-26 13:19] LABS: Lipase 26 U/L (8-78)
[2023-12-27 13:33] LABS: Transglutaminase Ab IgG <1.0 U/mL; Transglutaminase IgA <1.0 U/mL
== END 2023-12-26 10:49 | disposition home or self-care (01) ==
LOC: HO.LAB 10:48
PROVIDERS: PCP Family Medicine; Visit Provider Nurse Practitioner Family
DX: K21.9 Gastro-esophageal reflux disease without esophagitis (principal); R10.9 Unspecified abdominal pain; R09.89 Other specified symptoms and signs involving the circulatory and respiratory systems; R14.0 Abdominal distension (gaseous); R10.13 Epigastric pain; R13.10 Dysphagia, unspecified
CPT/HCPCS: 36415; 82785; 83690; 86003; 86364; 99202

== ENCOUNTER 2024-01-30 11:18 | Outpatient (AMB) | payer OTHER, SELFPAY ==
--- NOTE | 2024-01-30 11:23 | MHC.OFFVIS ---
Intake Vital Signs 01/30/24 11:34 Height 5 ft 5 in Weight 168 lb 13.985 oz BMI 28.1 BP 126/77 Blood Pressure Location Lt brachial Position Sitting Pulse 87 Intake Visit Reasons: 5 week follow up Intake Note: Patient is seen in office for 5 weeks follow up visit. Pt c/o: per pt her swallowing was doing better with the meds Rx, however no longer has any refills left and is having swallowing issues, continued acid reflux, coughing, vomit, denies diarrhea, constipation or other concerns Combination Presser Required: No Accompanied by: Self / Same As Patient Allergies jacki Allergy (Unknown, Verified 01/30/24 11:30) HIVES HPI 5 week follow up HPI Details LAST VISIT Globus sensation Postprandial abdominal bloating Postprandial epigastric pain GERD (gastroesophageal reflux disease) Plan Will send patient for barium swallow to evaluate for reflux, Schatzki ring, achalasia before sending patient for upper endoscopy. Patient will stop taking omeprazole and we will start her on pantoprazole. Patient will also take famotidine at bedtime. Patient will avoid dietary triggers and late night snacking. Staying upright for minimum 3 hours after meals discussed with patient. Will check for H pylori and treat empirically if positive. Will do food allergy, RAST allergen test ordered. Epigastric discomfort could be related to celiac disease will check transglutaminase, will check lipase to rule out chronic pancreatitis. Patient will avoid NSAIDs. Low FODMAP diet discussed with patient. List of food recommended as well as list of food to avoid given to patient. Given her symptoms of postprandial abdominal bloating patient my tried elimination diet to help with symptoms. Patient will be seen in the office in 5 weeks, sooner on as needed basis. Patient is agreeable to this plan and verbalizes understanding of instructions. She was given the opportunity to ask questions and all questions answered. ? Thank you for allowing me to participate in her care Orders Orders Rast Allergen Today K21.9 H pylori Ag Stool Today K21.9 Transglutaminase Ab IgG Today R10.9 Transglutaminase IgA Today R10.9 Lipase Today R10.9 FL upper GI w Ba Swallow Today R13.10 Medications New pantoprazole take one tablet half an hour before breakfast 40 mg PO DAILY 30 tabs 2RF K21.9 fluticasone propionate 50 mcg/actuation (Flonase Allergy Relief) administer into each nostril twice a day for 2 weeks and daily 1 spray intranasal BID 16 grams 0RF R09.89 famotidine (Pepcid) 20 mg PO BEDTIME 30 tabs 3RF K21.9 Discontinued omeprazole Discontinued Reason: Doctor's Order 40 mg PO DAILY 30 days 30 caps 3RF TODAY'S VISIT Patient is here today for follow-up and to discuss lab results. Patient was unable to get stool sample to check for H pylori. States that pantoprazole help, however patient did not received refills from the pharmacy and was without it for few days. Patient continues with globus sensation without the medication for the last 6 days couple days patient started feeling trouble swallowing. Feeling like something is stuck in her throat. Reports dyspepsia and dysphagia. Patient reports that she was clear her throat constantly patient reports that she is moving her bowels without any issues. Occasional nausea without vomiting. [facility] Medical History (Updated 10/16/23 @ 12:02 by Geoff Mccauley) Tonsillitis No known health problems Surgical History (Updated 12/26/23 @ 11:12 by Estelle Jaime) Hx of shoulder surgery Hx of foot operation Family History (Updated 12/26/23 @ 11:13 by Estelle Jaime) Father HTN (hypertension) Social History Household Members: [facility] Patient Tobacco Use Status: Never used Tobacco e-Cigarette/Vaping Use: Never Used Second Hand Smoke Exposure: No service: No Current occupational status: employed Cognitive needs: No Hearing needs: No Vision needs: No Review of Systems Const Denies weight gain and Denies weight loss ENT Reports no additional complaints, Reports dysphagia and Denies odynophagia Card Reports no additional complaints Resp Reports no additional complaints GI Denies abdominal pain, Denies belching, Denies melena, Reports bloating, Denies change in bowel habits, Reports dysphagia, Denies excessive flatus, Reports dyspepsia, Reports heartburn, Denies diarrhea, Denies loose stools, Reports nausea, Denies odynophagia and Denies vomiting Reports no additional complaints Musc Reports no additional complaints Neuro Reports no additional complaints Psych Reports no additional complaints Endo Reports no additional complaints Physical Exam Const General: healthy appearing, no acute distress and well developed Nutritional Appearance: obese Orientation/consciousness: patient oriented x3 Resp Effort & Inspection: normal respiratory effort, able to speak in complete sentences, no tracheal deviation and symmetric chest movement Auscultation: clear to auscultation bilaterally Cardio Rate: regular rate GI Inspection: Yes normal to inspection, No distended and Yes obesity Palpation (GI): Soft to palpation, not firm, nontender and No hepatosplenomegaly present Auscultation: normal bowel sounds General: Yes no CVA tenderness Back/Spine/Pelvis Back: no CVA tenderness Skin General skin exam: elasticity normal, turgor normal and dry skin Neuro General: patient oriented x3 Psych Appearance: grossly normal Mental Status: mental status grossly normal Assessment & Plan Assessment & Plan (1) Globus sensation: Code(s): R09.89 - Other specified symptoms and signs involving the circulatory and respiratory systems (2) Postprandial abdominal bloating: Code(s): R14.0 - Abdominal distension (gaseous) (3) Postprandial epigastric pain: Code(s): R10.13 - Epigastric pain (4) GERD (gastroesophageal reflux disease): Code(s): K21.9 - Gastro-esophageal reflux disease without esophagitis Qualifiers: Esophagitis presence: esophagitis presence not specified Qualified Code(s): K21.9 - Gastro-esophageal reflux disease without esophagitis Plan Patient will continue pantoprazole in the morning half an hour before breakfast. Continue famotidine at bedtime. Continue avoiding dietary triggers in late night snacking. Staying upright for minimum 3 hours after meals discussed with patient. Patient will be scheduled for upper endoscopy to rule out gastritis, duodenitis, esophagitis, Montelongo's, H pylori, Schatzki ring, achalasia. I will see her after the procedure, sooner on as needed basis. Patient is agreeable to this plan and verbalizes understanding of instructions. She was 30 to ask questions and all questions answered. Thank you for allowing me to participate in her care Medications: Refilled pantoprazole take one tablet half an hour before breakfast 40 mg PO DAILY 90 tabs 2RF K21.9 - Gastro-esophageal reflux disease without esophagitis Coding Level of Care Code Est Pt Level 4 (34838) Diagnoses Globus sensation R09.89 Postprandial abdominal bloating R14.0 Postprandial epigastric pain R10.13 Gastroesophageal reflux disease, unspecified whether esophagitis present K21.9 Esophagitis presence: esophagitis presence not specified Time Spent (min) 35 Comment 20 minutes spent with patient and additional 15 minutes spent reviewing her records
[2024-01-30 11:34] VITALS: BP 126/77; PULSE 87; BMI 28.1
== END 2024-01-30 12:59 | disposition home or self-care (01) ==
PROVIDERS: PCP Family Medicine; Visit Provider Nurse Practitioner Family
DX: R09.89 Other specified symptoms and signs involving the circulatory and respiratory systems (principal); R14.0 Abdominal distension (gaseous); R10.13 Epigastric pain; K21.9 Gastro-esophageal reflux disease without esophagitis
CPT/HCPCS: 99214

== ENCOUNTER → 2024-01-30 11:18 | Outpatient (BNVA) | payer OTHER, SELFPAY | PROVIDERS: PCP Family Medicine; Visit Provider Nurse Practitioner Family | DX: K21.9 Gastro-esophageal reflux disease without esophagitis (principal); R09.89 Other specified symptoms and signs involving the circulatory and respiratory systems; R14.0 Abdominal distension (gaseous); R10.13 Epigastric pain | CPT/HCPCS: 99212 ==

== ENCOUNTER 2024-02-19 11:31 | Outpatient (REF) | payer OTHER, SELFPAY ==
[2024-02-19 11:58] LABS: MANUAL DIFF FLAG NO
[2024-02-19 12:43] LABS: Basophils Percent Auto 0.7 % (0-2); Eosinophils Percent Auto 0.7 % (0-4); Hematocrit 41.9 % (37.0-47.0); Hemoglobin 13.8 g/dl (12.0-16.0); Imm Gran Abs Auto 0.01 X10*3/uL (0.00-0.03); Imm Gran Pct Auto 0.2 % (0.0-0.4); Lymphocytes Absolute Auto 2.1 X10*3/uL (1.2-4.9); Lymphocytes Percent Auto 46.1 % (20-40); Mean Corpuscular HGB Conc 32.9 g/dl (31.0-35.0); Mean Corpuscular Hemoglobin 31.8 pg (27.0-33.0); Mean Corpuscular Volume 96.5 fL (80.0-98.0); Mean Platelet Volume 12.1 fL (9.4-12.3); Monocytes Absolute Auto 0.4 X10*3/uL (0.1-1.2); Monocytes Percent Auto 9.3 % (2-11); Neutrophils Absolute Auto 1.9 x10*3/uL (2.0-8.3); Platelet Count 264 X10*3/uL (160-400); Red Blood Count 4.34 X10*6/uL (4.20-5.50); Red Cell Distribution Width 12.4 % (11.0-16.0); White Blood Count 4.5 X10*3/uL (4.8-10.8)
[2024-02-19 13:26] LABS: Alanine Aminotransferase 18 U/L (0-31); Albumin Level 4.2 g/dL (3.5-5.0); Alkaline Phosphatase 45 U/L (39-117); Anion Gap 12 (12-20); Aspartate Amino Transferase 17 U/L (5-31); Bilirubin Total 0.4 mg/dL (0.0-1.0); Blood Urea Nitrogen 12 mg/dL (9-16); Calcium 9.5 mg/dL (8.4-10.2); Carbon Dioxide 27 mmol/L (22-29); Chloride 105 mmol/L (96-108); Cholesterol 236 mg/dL (<200); Estimated Glomerular Filt Rate > 60; Glucose Fasting 78 mg/dL (60-99); HDL Cholesterol 60 mg/dL (>40); LDL Cholesterol Calculated 156 mg/dL (<100); Sodium 140 mmol/L (135-145); TSH reflex Free T4 0.79 uIU/mL (0.32-4.0); Total Protein 7.9 g/dL (6.5-8.0); Triglycerides 103 mg/dL (<150)
[2024-02-19 13:35] LABS: Appearance Urine Clear; Color Urine Yellow; Glucose Urine UA Negative (Negative); Leukocyte Esterase Urine Negative (Negative); Nitrite Urine Negative (Negative); UMIC TRIGGER UA YES; Urine Blood Trace (Negative); Urine Ketones 15 mg/dL (Negative); Urine Protein Negative (Neg-Trace)
[2024-02-19 14:12] LABS: Creatinine Urine 215.19 mg/dL; Microalbum/Creatinine Ratio Ur 10.2 ug/mg cr (<30)
[2024-02-19 15:12] LABS: Bacteria Urine None Seen (None Seen); Hyaline Casts Urine 0-2 /LPF (0-2); RBC Urine 0-2 /HPF (0-2); WBC Urine 0-5 /HPF (0-5)
== END 2024-02-19 11:32 | disposition home or self-care (01) ==
LOC: HO.LAB 11:31
PROVIDERS: PCP Family Medicine; Visit Provider Family Medicine
DX: Z00.00 Encounter for general adult medical examination without abnormal findings (principal); I10 Essential (primary) hypertension
CPT/HCPCS: 36415; 80053; 80061; 81001; 82043; 82570; 84443; 85025

== ENCOUNTER 2024-02-21 11:58 | Outpatient (AMB) | payer OTHER, SELFPAY ==
[2024-02-21 12:09] VITALS: BP 120/62; PULSE 88; O2SAT 98; BMI 28.3
--- NOTE | 2024-02-21 12:09 | A.OFFPC_ITS ---
Vital Signs 02/21/24 12:09 Height 5 ft 5 in Weight 170 lb 2 oz BMI 28.3 BP 120/62 Blood Pressure Location Lt brachial Position Sitting Pulse 88 Pulse Source Pulse Oximeter Pulse Oximetry (%) 98 Oxygen Delivery Method Room Air Intake Visit Reasons: CPE Intake Note: Patient is here for her physical today. Allergies Cow's milk Allergy (Unknown, Uncoded 02/21/24 12:11) unknown effect Tobacco use date assessed: 02/21/24 Dental Screening Dental Screen Date: 02/21/24 Did you have a dental visit in the last 12 months?: Yes Did you have a dental problem in the last 6 months where you did not have access to dental care?: Yes Was dental information given to patient?: Yes HPI CPE HPI Details 34 y/o female presents for an extended e xam with f/u labs and health maintenance. Labs were drawn 02/19/24. Reviewed labs with pt. Triglycerides 103. TC 236. LDL 156. HDL 60. Pt reports FHx of early breast cancer. She reports sister from breast cancer in her 40s. PFSH Medical History Tonsillitis No known health problems Surgical History Hx of shoulder surgery Hx of foot operation Family History (Updated 02/21/24 @ 12:14 by Zakia Tello CMA) Father HTN (hypertension) Social History [facility]hold Members: [facility] Patient Tobacco Use Status: Never used Tobacco e-Cigarette/Vaping Use: Never Used Second Hand Smoke Exposure: No service: No Current occupational status: employed Cognitive needs: No Hearing needs: No Vision needs: No Questionnaire PHQ-9 Over the last 2 weeks, how often have you been bothered by any of the following problems? 1. Little interest or pleasure in doing things: not at all 2. Feeling down, depressed, or hopeless: not at all 3. Trouble falling or staying asleep, or sleeping too much: not at all 4. Feeling tired or having little energy: not at all 5. Poor appetite or overeating: not at all 6. Feeling bad about yourself - or that you are a failure or have let yourself or your family down: not at all 7. Trouble concentrating on things, such as reading the newspaper or watching television: not at all 8. Moving or speaking so slowly that other people could have noticed. Or the opposite - being so fidgety or restless that you have been moving around a lot more than usual: not at all 9. Thoughts that you would be better off or of hurting yourself in some way: not at all Total score: 0 Depression Screening Interpretation: Negative Depression Screening Done: Yes 43567 - PHQ-9 Billing: Yes Source: Developed by Drs. Ramone Mayfield, Maisha Balbuena, Ap Chand and colleagues, with an educational charity from [employer]. Thrive Questionnaire Date Thrive assessed: 02/21/24 I am a: Patient What is your living situation today?: I have a steady place to live Within the past 12 months, did the food you bought not last and you didn't have the money to get more?: Never true Within the past 12 months, did you worry whether your food would run out before you got money to buy more?: Never true Do you have trouble paying for medicines?: No Do you have trouble getting transportation to medical appointments?: No Do you have trouble paying your heating and electricity bill?: No Do you have trouble taking care of your child, family member or friend?: No Do you have trouble with day-to-day activities such as bathing, preparing meals, shopping, managing finances, etc.?: No Are you currently unemployed and looking for a job?: No Are you interested in more education?: No THRIVE Score: 0 AUDIT C Alcohol Use Questionnaire (AUDIT-C) 1. How often do you have a drink containing alcohol?: Monthly or less 2. How many drinks containing alcohol do you have on a typical day when you are drinking?: 1 or 2 3. How often do you have six or more drinks on one occasion?: Never Total Score: 1 JAMEEL-7 AMB Questionnaire JAMEEL-7 Date JAMEEL - 7 assessed: 02/21/24 Feeling nervous, anxious, or on edge: 1 = Several days Not being able to stop or control worryin = Several days Worrying too much about different things: 1 = Several days Trouble relaxin = Several days Being so restless that it is hard to sit still: 0 = Not at all Becoming easily annoyed or irritable: 1 = Several days Feeling afraid as if something awful might happen: 0 = Not at all Total JAMEEL-7 score (0-4 normal; 5-9 mild; 10-14 moderate; 15-21 severe): 5 Source: Developed by Drs. Ramone Mayfield, Maisha Balbuena, Ap Chand and colleagues, with an educational charity from [employer]. JAEMEL-7 Assessment Billing JAMEEL-7 Assessment Tool: JAMEEL-7 Assessment 86292 Review of Systems Const Denies chills, Denies fatigue, Denies fever(s), Denies headache(s) and Denies weakness Eyes Denies change in vision ENT Denies dizziness, Denies headache(s), Denies hearing loss, Denies nasal congestion, Denies sinus pain, Denies sinus pressure and Denies sore throat Card Denies chest pain, Denies lightheadedness, Denies dyspnea and Denies other (palpitations) Resp Denies cough, Denies dyspnea and Denies wheezing GI Denies abdominal pain, Denies melena, Denies hematochezia, Denies change in bowel habits, Denies dyspepsia and Denies nausea Denies hematuria and Denies dysuria Musc Denies abnormal gait, Denies myalgias, Denies arthralgias, Denies numbness and Denies tingling Skin/Breast Denies rash, Denies unusual bruising and Denies wounds Neuro Denies abnormal gait, Denies dizziness, Denies headache(s), Denies memory loss, Denies numbness, Denies Sensory deficit (Neuro), Denies tingling and Denies weakness Psych Denies anxiety, Denies depression and Denies memory loss Endo Denies cold intolerance, Denies fatigue, Denies heat intolerance, Denies polydipsia and Denies polyuria Kunal/Lymph Denies easy bleeding and Denies easy bruising Aller/Immun Denies wheezing Physical exam (Primary Care) Vital Signs: Last Vital Signs Pulse 88 02/21/24 12:09 BP 120/62 02/21/24 12:09 Pulse Ox 98 02/21/24 12:09 Oxygen Delivery Method Room Air 02/21/24 12:09 BMI result Body Mass Index 28.3 Tobacco/Smoking Status: Tobacco use Status Tobacco use date assessed 02/21/24 02/21/24 12:20 Patient Tobacco Use Status Never used Tobacco 02/21/24 12:20 e-Cigarette/Vaping Use Never Used 02/21/24 12:20 PHQ-9: PHQ-9 Score PHQ-9: Total score 0 02/21/24 12:37 Depression Screening Interpretation: Negative Thrive Assessment: Date of Thrive Assessment Date Thrive assessed 02/21/24 02/21/24 12:20 Const General: no acute distress, well developed, alert and awake Nutritional Appearance: well nourished Orientation/consciousness: patient oriented x3 HENMT Head: Yes normocephalic and Yes atraumatic Ears: hearing grossly normal bilaterally and TM's normal bilaterally General nose exam: Normal external nose present and Normal nares present Mouth: Normal oral and palatal mucosa present and moist mucous membranes Teeth and gingiva: dentition normal Throat: Yes posterior oropharynx normal Eyes General: appearance normal, both eyes and all related structures Pupils: Equal, round and reactive pupils present and Pupil accommodation reflex normal EOM: EOMs intact bilaterally Neck Neck: Yes normal visual inspection, Yes no lymphadenopathy and Yes trachea midline Thyroid: Thyroid normal Carotids: no bruits Lymphatic: no lymphadenopathy noted Chest Chest palpation & inspection: normal inspection of the chest Resp Effort & Inspection: normal respiratory effort Auscultation: clear to auscultation bilaterally Cardio Rate: regular rate Rhythm: regular rhythm Heart sounds: S1 normal heart sound present, S2 normal heart sound present, no gallops, no murmurs and no rubs Bruits: no abdominal aortic bruits and no carotid bruits GI Palpation (GI): No Abdominal aortic bruit present, Soft to palpation, nontender, No hepatosplenomegaly present and No Rebound tenderness present Auscultation: normal bowel sounds General: Yes no CVA tenderness Back/Spine/Pelvis Back: no CVA tenderness Cervical Spine: cervical ROM normal and No Cervical spine tenderness Thoracic/Lumbar Spine: thoraco-lumbar ROM normal, No pain with thoraco-lumbar ROM, No thoracic spinal tenderness and No lumbar spinal tenderness Skin Lesions: no lesions Rashes: no rashes Trauma: no lacerations or abrasions Wounds: no wounds Nails: normal Neuro General: patient oriented x3 Cranial nerves: Yes Equal, round and reactive pupils present Cognition (Neuro): normal cognition Gait exam (Neuro): Normal gait present Motor exam (neuro): 5/5 motor strength present throughout Sensory Exam: No Sensory deficit (Neuro) Deep tendon reflexes (DTR's): Right patellar reflex intensity grade: 2+ and Left patellar reflex intensity grade: 2+ Extrem General: Yes normal to inspection and No edema Psych Appearance: grossly normal Affect: normal affect Attitude: cooperative Thought process: Normal thought process present Assessment and Plan Assessment & Plan (1) Adult general medical exam: Code(s): Z00.00 - Encounter for general adult medical examination without abnormal findings Plan: 34-year-old?female?presents?for?complete?physical?exam Encouraged?healthy?diet?with?active?lifestyle?and?plenty?of?exercise (2) Gastroesophageal reflux disease: Code(s): K21.9 - Gastro-esophageal reflux disease without esophagitis Plan: Has?endoscopy?scheduled?with??April Follow-up?with?Gastroenterology?as?recommended (3) Hypercholesterolemia: Code(s): E78.00 - Pure hypercholesterolemia, unspecified Plan: LDL?cholesterol?is?too?high Encouraged?diet?low?in?saturated?fats?and?cholesterol We?will?recheck?this?in?a?few?months (4) Screening for cervical cancer: Code(s): Z12.4 - Encounter for screening for malignant neoplasm of cervix Plan: Followed?by?gynecology teacher?and?gets?regular?checkups Follow-up?with?your?gynecology teacher?for?Pap?smears?as?recommended (5) Family history of breast cancer: Code(s): Z80.3 - Family history of malignant neoplasm of breast Plan: Strong?family?history?of?ea rly?breast?cancer?with?a?sister?who?passed?away?from?breast?cancer?in?her?40s. Ordered?mammogram Patient?says?that?her?sister?had?been?told?to?advise?for?genetic?testing Will?follow-up?in?discuss?with?patient?regarding?referral?to?Genetics Orders: Orders MM tomosynthesis screening BI Today Z80.3 - Family history of malignant neoplasm of breast Coding Level of Care Code Est Pt Level 4 (75284) Diagnoses Adult general medical exam Z00.00 Gastroesophageal reflux disease K21.9 Hypercholesterolemia E78.00 Screening for cervical cancer Z12.4 Family history of breast cancer Z80.3 Additional Codes JAMEEL-7 Assessment Billing - JAMEEL-7 Assessment Tool: JAMEEL-7 Assessment [id number] ([id number])
== END 2024-02-21 13:32 | disposition home or self-care (01) ==
PROVIDERS: Visit Provider Family Medicine
DX: Z00.00 Encounter for general adult medical examination without abnormal findings (principal); K21.9 Gastro-esophageal reflux disease without esophagitis; E78.00 Pure hypercholesterolemia, unspecified; Z80.3 Family history of malignant neoplasm of breast
CPT/HCPCS: 99395

== ENCOUNTER 2024-04-18 09:51 | Outpatient (AMB) | payer OTHER, SELFPAY ==
--- NOTE | 2024-04-18 10:09 | A.OFFVIS_ITS ---
Vital Signs 04/18/24 10:11 Height 5 ft 5 in Weight 163 lb BMI 27.1 BP 132/88 Blood Pressure Location Lt brachial Position Sitting Pulse 97 Intake Visit Reasons: Globus sensation Intake Note: Patient follow up for Global sensation Patient cc: Nauseas with chest burning with acid reflex and throat feel tight. [employer] Required: No Accompanied by: Self / Same As Patient Allergies Cow's milk Allergy (Unknown, Uncoded 02/21/24 12:11) unknown effect HPI HPI Globus sensation: Details: LAST VISIT: Globus sensation Postprandial abdominal bloating Postprandial epigastric pain GERD (gastroesophageal reflux disease) Plan Patient will continue pantoprazole in the morning half an hour before breakfast. Continue famotidine at bedtime. Continue avoiding dietary triggers in late night snacking. Staying upright for minimum 3 hours after meals discussed with patient. Patient will be scheduled for upper endoscopy to rule out gastritis, duodenitis, esophagitis, Montelongo's, H pylori, Schatzki ring, achalasia. I will see her after the procedure, sooner on as needed basis. Patient is agreeable to this plan and verbalizes understanding of instructions. She was 30 to ask questions and all questions answered. ? Thank you for allowing me to participate in her care Medications Refilled pantoprazole take one tablet half an hour before breakfast 40 mg PO DAILY 90 tabs 2RF K21.9 TODAY'S VISIT Patient is here today for follow-up. She reports that she continues to feel the same feels like pantoprazole is not helping. Patient still has globus sensation trouble swallowing. Feels like there something stuck in her throat. Patient did not get H pylori testing done yet. Tried in the past omeprazole, Nexium, famotidine and sucralfate and all of the medication were not helpful. Patient states that sucralfate and famotidine were causing her symptoms worse. Patient states that she felt burning in her chest. Discussed with patient diet. Patient states that she is having trouble eating as she is afraid that she is going to choke. Patient states that couple days ago she had a hot dog. Discussed with patient that she should be eating processed food like that but more on sees and vegetables, protein like chicken, fish. Trying to follow low FODMAP diet. Patient denies any nausea or vomiting. Reports that she is moving her bowels well. Denies diarrhea. Occasional epigastric pain. Denies any abdominal pain or bloating PFSH Medical History Tonsillitis No known health problems Surgical History Hx of shoulder surgery Hx of foot operation Family History Father HTN (hypertension) Social History Household Members: Family Housing: [facility] Patient Tobacco Use Status: Never used Tobacco e-Cigarette/Vaping Use: Never Used Second Hand Smoke Exposure: No service: No Current occupational status: employed Cognitive needs: No Hearing needs: No Vision needs: No Review of Systems Const Denies weight gain and Denies weight loss ENT Reports no additional complaints, Reports dysphagia and Denies odynophagia Card Reports no additional complaints Resp Reports no additional complaints GI Denies abdominal pain, Denies belching, Denies melena, Denies bloating, Denies change in bowel habits, Reports dysphagia, Denies excessive flatus, Reports dyspepsia, Reports heartburn, Denies diarrhea, Denies loose stools, Denies nausea, Denies odynophagia and Denies vomiting Reports no additional complaints Musc Reports no additional complaints Neuro Reports no additional complaints Psych Reports no additional complaints Endo Reports no additional complaints Physical Exam Vital Signs: Last Vital Signs Pulse 97 04/18/24 10:11 BP 132/88 04/18/24 10:11 BMI result Body Mass Index 27.1 Const General: healthy appearing, no acute distress and well developed Nutritional Appearance: obese Orientation/consciousness: patient oriented x3 Resp Effort & Inspection: normal respiratory effort, able to speak in complete sentences, no tracheal deviation and symmetric chest movement Auscultation: clear to auscultation bilaterally Cardio Rate: regular rate GI Inspection: Yes normal to inspection, No distended and Yes obesity Palpation (GI): Soft to palpation, not firm, nontender and No hepatosplenomegaly present Auscultation: normal bowel sounds General: Yes no CVA tenderness Back/Spine/Pelvis Back: no CVA tenderness Skin General skin exam: elasticity normal, turgor normal and dry skin Neuro General: patient oriented x3 Psych Appearance: grossly normal Mental Status: mental status grossly normal Assessment & Plan Assessment & Plan (1) Globus sensation: Code(s): R09.89 - Other specified symptoms and signs involving the circulatory and respiratory systems Category: Medical (2) Gastroesophageal reflux disease: Code(s): K21.9 - Gastro-esophageal reflux disease without esophagitis Category: Medical Qualifiers: Esophagitis presence: esophagitis presence not specified Qualified Code(s): K21.9 - Gastro-esophageal reflux disease without esophagitis Plan Patient has upper endoscopy scheduled, however she is not going to be having that done till July. Patient will call every week to surgical scheduled to see if anything open so she can go sooner. In the meantime patient states that she feels like there is something stuck in her throat I will send her for CT soft tissue of neck to rule out stricture, mass, enlarged tonsil. Patient will stop pantoprazole and will start her on lansoprazole. She will return in the office in 6 weeks to re-evaluate. She is agreeable to this plan and verbalizes understanding of instructions. She was given the opportunity to ask questions and all questions answered. Thank you for allowing me to participate in her care Orders: Orders H pylori Ag Stool Today K21.9 - Gastro-esophageal reflux disease without esophagitis CT soft tissue neck w IV con Today K21.9 - Gastro-esophageal reflux disease without esophagitis, R09.89 - Other specified symptoms and signs involving the circulatory and respiratory systems Blood Urea Nitrogen Today R10.11 - Right upper quadrant pain Creatinine Today R10.11 - Right upper quadrant pain Medications: New lansoprazole 30 mg PO DAILY 30 caps 3RF K21.9 - Gastro-esophageal reflux disease without esophagitis Discontinued famotidine (Pepcid) Discontinued Reason: Doctor's Order 20 mg PO BEDTIME 30 tabs 3RF K21.9 - Gastro-esophageal reflux disease without esophagitis pantoprazole take one tablet half an hour before breakfast Discontinued Reason: Doctor's Order 40 mg PO DAILY 90 tabs 2RF K21.9 - Gastro-esophageal reflux disease without esophagitis Coding Level of Care Code Est Pt Level 3 (49511) Diagnoses Globus sensation R09.89 Gastroesophageal reflux disease, unspecified whether esophagitis present K21.9 Esophagitis presence: esophagitis presence not specified Time Spent (min) 30 Comment 20 minutes spent with patient and additional 10 minutes spent reviewing her records
[2024-04-18 10:11] VITALS: BP 132/88; PULSE 97; BMI 27.1
== END 2024-04-18 10:43 | disposition home or self-care (01) ==
PROVIDERS: PCP Family Medicine; Visit Provider Nurse Practitioner Family
DX: R09.89 Other specified symptoms and signs involving the circulatory and respiratory systems (principal); K21.9 Gastro-esophageal reflux disease without esophagitis
CPT/HCPCS: 99213

== ENCOUNTER → 2024-04-18 09:51 | Outpatient (BNVA) | payer OTHER, SELFPAY | PROVIDERS: PCP Family Medicine; Visit Provider Nurse Practitioner Family | DX: R09.89 Other specified symptoms and signs involving the circulatory and respiratory systems (principal); K21.9 Gastro-esophageal reflux disease without esophagitis | CPT/HCPCS: 99212 ==

== ENCOUNTER 2024-05-05 07:03 | Outpatient (REF) | payer OTHER, SELFPAY ==
[2024-05-05 08:20] LABS: Blood Urea Nitrogen 7 mg/dL (9-16); Estimated Glomerular Filt Rate > 60
== END 2024-05-05 07:04 | disposition home or self-care (01) ==
LOC: HO.LAB 07:03
PROVIDERS: PCP Family Medicine; Visit Provider Nurse Practitioner Family
DX: R10.11 Right upper quadrant pain (principal); K21.9 Gastro-esophageal reflux disease without esophagitis
CPT/HCPCS: 82565; 84520; 87338

== ENCOUNTER 2024-05-07 14:19 | Outpatient (REF) | payer OTHER, SELFPAY ==
--- NOTE | ~2024-05-07 | CT_ITS ---
EXAMINATION: CT SOFT TISSUE NECK WITH CONTRAST CLINICAL INFORMATION: Gastroesophageal reflux disease COMPARISON: None. TECHNIQUE: Following the administration of 60 mL of Omnipaque 350 intravenous contrast, helical imaging was performed in the axial plane with generation of coronal and sagittal reformatted images. This CT examination was performed using dose optimization techniques as appropriate, variously including the following: *Automated exposure control. *Adjustment of mA and/or kV according to patient size (this includes techniques or standardized protocols for targeted exams where dose is matched to indication/reason for exam; i.e. extremities or head). *Use of iterative reconstruction technique. DLP: 341 mGy-cm. FINDINGS: Nasopharynx/skull base: The fat planes of the skull base and soft tissues of the nasopharynx are unremarkable. The paranasal sinuses and mastoid air cells are well aerated. Degenerative changes of the right greater than left temporomandibular joints. Suprahyoid neck: The oropharynx, oral cavity, and bilateral salivary gland tissues are unremarkable. Infrahyoid neck: The hypopharynx and larynx are unremarkable. No aerodigestive tract mass. Thyroid: The thyroid gland is normal. Lymph nodes: There is no cervical chain lymphadenopathy. Lung apices: The partially visualized lung apices are clear. Vascular structures: No hemodynamically significant stenosis, dissection, or occlusion. Osseous structures: The osseous structures are intact without suspicious focal lesion. Other: The imaged portions of the brain parenchyma are unremarkable. CT/CT soft tissue neck w IV con IMPRESSION: Normal soft tissues of the neck.
== END 2024-05-07 14:20 | disposition home or self-care (01) ==
LOC: HO.CT 14:19
PROVIDERS: PCP Family Medicine; Visit Provider Nurse Practitioner Family
DX: K21.9 Gastro-esophageal reflux disease without esophagitis (principal); R09.89 Other specified symptoms and signs involving the circulatory and respiratory systems
CPT/HCPCS: 70491; Q9967

== ENCOUNTER 2024-05-20 09:57 | Day surgery (SDC) | payer OTHER, SELFPAY ==
--- NOTE | 2024-05-19 08:51 | HO.ANESPROP2 ---
Documented by User: Charla Obrien NP 05/19/24 08:51 HPI - Anesthesia Eval Consult details Narrative: 34yo F for Upper Endoscopy [facility] Active Problems Active Problems: All Active Problems Family history of breast cancer (Acute) Hypercholesterolemia (Acute) Gastroesophageal reflux disease (Acute) Shakiness (Acute) Screening for cervical cancer (Acute) Adult general medical exam (Acute) Amenorrhea (Acute) Incidental (Acute) Panic attack (Acute) Anxiety (Acute) Globus sensation (Acute) Cough (Acute) COVID-19 (Acute) Past Medical History Medical History Tonsillitis No known health problems Family History Family History Father HTN (hypertension) Surgical History Surgical History Hx of shoulder surgery Hx of foot operation Social History Social History Household Members: Family [facility]: [facility] Patient Tobacco Use Status: Never used Tobacco e-Cigarette/Vaping Use: Never Used Second Hand Smoke Exposure: No Are you DNR?: No Advance Directives: No Advance Directives Information Provided: Yes Patient : No FDLMP: LAST WEEK service: No Current occupational status: employed Cognitive needs: No Hearing needs: No Vision needs: No Meds Allergies Allergy/AdvReac Type Severity Reaction Status Date / Time Cow's milk Allergy Unknown unknown Uncoded 02/21/24 12:11 effect Assessment and Plan Assessment Anesthesia Assessment: Chart Reviewed Documented by User: Edvin Witt MD 05/20/24 10:33 [facility] Past Medical History Medical History Tonsillitis No known health problems Family History Family History Father HTN (hypertension) Family history of problems with anesthesia: No Surgical History Surgical History Hx of shoulder surgery Hx of foot operation History of Problems with Anesthesia: No Social History Social History Household Members: Family Housing: Condominium Patient Tobacco Use Status: Never used Tobacco e-Cigarette/Vaping Use: Never Used Second Hand Smoke Exposure: No Are you DNR?: No Advance Directives: No Advance Directives Information Provided: Yes Patient : No FDLMP: LAST WEEK service: No Current occupational status: employed Cognitive needs: No Hearing needs: No Vision needs: No Meds Allergies Allergy/AdvReac Type Severity Reaction Status Date / Time Cow's milk Allergy Unknown unknown Uncoded 02/21/24 12:11 effect Exam Airway Mallampati Class: II TM Dist: >3cm Neck ROM: Full Assessment and Plan Assessment Anesthesia Assessment: Anesthesia Plan Discussed Final Anesthetic Review Family History of Problems with Anesthesia: No History of Problems with Anesthesia: No NPO: Yes ASA Class: II Final Preanesthetic Review: No Changes in Pt Med Stat, Meds/Allgs Chart Reviewed, Consent Obtained/Reviewed and Anes Risks/Benef Reviewed Patient Risk: Low Procedure Risk: Low Anesthetic Plan Anesthetic Plan: TIVA Disposition: Standard PACU
--- NOTE | 2024-05-20 10:06 | MHC.SHP ---
Pre-Procedural Eval Section A - 24 Hr Update-Section A only Date of Service: 05/20/24 The patient is an INPATIENT: No The patient has been examined within 24 hours of the surgical procedure. The History & Physical has been completed within 30 days and I have reviewed it.: No Section B - Complete if H&P > 30 days Chief Complaint: Dysphagia, globus sensation Relevant Family History (Specify if Yes): No Relevant Social History: None Present Medications: see Short Stay Collaborative assessment Medical History: Significant History (GERD, hypercholesterolemia, anxiety) History of Previous Operations: Relevant previous surgery/procedure and date(s) (Hx of shoulder surgery Hx of foot operation) Allergies: Allergies Allergy/AdvReac Type Severity Reaction Status Date / Time Cow's milk Allergy Unknown unknown Uncoded 02/21/24 12:11 effect Review of Systems Sugical H&P ROS: Negative: Constitution, Cardiovascular and Respiratory and Yes, Specify: Gastrointestinal (GERD) Exam Surgical H&P Exam: Normal: Heart, Normal: Lungs, Normal: Extremities and Normal: Abdomen Plan Diagnosis/Plan: Unchanged I have reviewed the history and physical and performed a pertinent physical examination on my patient. No changes have occurred unless specified. Time Spent With Patient Time: Total time managing care of this patient today ____ minutes.
[2024-05-20 10:10] VITALS: BP 132/94; PULSE 77; RESP 18; TEMP 36.4; O2SAT 98; BMI 27.0
[2024-05-20 10:21] LABS: UPreg QC Valid YES; Urine Pregnancy NEGATIVE (NEGATIVE)
[2024-05-20] MEDS: Lactated Ringers 1,000 ML 100 ML IVCONT (10:29)
--- NOTE | 2024-05-20 12:00 | W.PM.OPN ---
Operative Note Operative Note Date of Service: 05/20/24 Narrative: FLEXIBLE TRANSORAL UPPER GASTROINTESTINAL ENDOSCOPY WITH BIOPSIES Pre-op diagnosis: GERD, globus sensation Post-op diagnosis: LPRD, Gastritis, gastric polyp Endoscopist:? Lizette Durham MD Anesthesia:?MAC UPPER ENDOSCOPY Consent: Indications for the procedure and potential complications of bleeding, perforation, reaction to medications and missed diagnosis were discussed with the patient and informed consent was obtained. Instrument: Olympus GIF H 190 mid size upper endoscope Monitoring: Vital signs and clinical assessment, continuous EKG monitoring, Pulse oximetry, Carbon Dioxide monitoring and blood pressure monitoring were done throughout the procedure. Procedure: The patient was placed in the left lateral decubitis position and pre-procedure medications were administered and a bite block was placed. The endoscope was inserted into the mouth and advanced under direct vision to the third part of duodenum. A careful inspection was made as the upper endoscope was withdrawn including a retroflexed examination of the proximal stomach; Findings and interventions are described below. Findings: Larynx: Edema and erythema of the arytenoid cartilages Esophagus: GE junction at 40 cms. No esophagitis or Montelongo's. Biopsies were obtained from distal esophagus to check for microscopic esophagitis Stomach: Mild diffuse gastric erythema - biopsies were obtained from the antrum. A 3-4 mm benign appearing polyp in the gastric body - removed with a cold bx Grade 2 flap valve on retroflexed examination of the cardia. Duodenum: Normal bulb and descending duodenum Intervention: Biopsies as noted above Impression and Post Procedure Diagnosis: Endoscopy Findings: LARYNX: Edema and erythema of the arytenoid cartilages suggestive of LPRD and likely cause of globus sensation ESOPHAGUS: GE junction at 40 cms. No esophagitis or Montelongo's. Biopsies were obtained from distal esophagus to check for microscopic esophagitis STOMACH: Mild diffuse gastric erythema - biopsies were obtained from the antrum. A 3-4 mm benign appearing polyp in the gastric body - removed with a cold bx Pt's symptoms are likely due to LPRD. Pt stated she has noted some improvement since she started taking Lansoprazole Plan: Pt has a FU appointment on 05/21/24 with Shanell Meyer NP. If symptoms persist, dose of lansoprazole can be increased to twice daily. Above findings were reviewed with the patient and relevant handouts were given and the discharge area.
[2024-05-20 12:03] VITALS: BP 132/76; PULSE 80; RESP 16; TEMP 36.6; O2SAT 99
[2024-05-20 12:18] VITALS: BP 122/77; PULSE 71; RESP 16; TEMP 36.3; O2SAT 100
== END 2024-05-20 12:49 | disposition home or self-care (01) ==
PROVIDERS: Nurse Practitioner; PCP Family Medicine; Visit Provider Internal Medicine Gastroenterology
PROC: 0DJ08ZZ Inspection of Upper Intestinal Tract, Via Natural or Artificial Opening Endoscopic (ICD-10-PCS; CPT 43235; principal; 2024-05-20 11:40)
DX: R13.10 Dysphagia, unspecified (principal); K21.9 Gastro-esophageal reflux disease without esophagitis; K29.50 Unspecified chronic gastritis without bleeding; K31.7 Polyp of stomach and duodenum; R14.0 Abdominal distension (gaseous); R09.89 Other specified symptoms and signs involving the circulatory and respiratory systems; Z79.899 Other long term (current) drug therapy; Z91.011 Allergy to milk products; Z98.890 Other specified postprocedural states
CPT/HCPCS: 43239; 81025; 88305; 88313; 88342; J1596; J2704

== ENCOUNTER → 2024-05-20 09:57 | Outpatient (BNV) | payer OTHER, SELFPAY | PROVIDERS: PCP Family Medicine; Visit Provider Internal Medicine Gastroenterology | DX: K21.9 Gastro-esophageal reflux disease without esophagitis (principal); K31.7 Polyp of stomach and duodenum; R09.A2 Foreign body sensation, throat | CPT/HCPCS: 43239 ==

== ENCOUNTER 2024-05-21 10:03 | Outpatient (AMB) | payer OTHER, SELFPAY ==
--- NOTE | 2024-05-21 10:30 | A.OFFVIS_ITS ---
Vital Signs 05/21/24 10:36 Height 5 ft 5 in Weight 166 lb 10.711 oz BMI 27.7 BP 136/84 Blood Pressure Location Lt brachial Position Sitting Pulse 68 Pulse Source Pulse Oximeter Pulse Oximetry (%) 99 Oxygen Delivery Method Room Air Intake Visit Reasons: 5 week follow up Intake Note: Anne-Marie presents in office today for a scheduled 5 week FUV CC: Pt [place] [place] Pt denies any complications. Pt reports that she is still taking the lansoprazole as instructed and has been noticing a positive response in sx treatment. Pt reports she needs a refill of the Zyrtec - D if possible. Pt is aware that this is not typically rx'd by this office. Management Department Chair Required: No Allergies Milk Containing Products (Dairy) Adverse Reaction (Unknown, Verified 05/21/24 10:31) Unknown HPI HPI 5 week follow up: Details: LAST VISIT Globus sensation Gastroesophageal reflux disease Plan Patient has upper endoscopy scheduled, however she is not going to be having that done till July. Patient will call every week to surgical scheduled to see if anything open so she can go sooner. In the meantime patient states that she feels like there is something stuck in her throat I will send her for CT soft tissue of neck to rule out stricture, mass, enlarged tonsil. Patient will stop pantoprazole and will start her on lansoprazole. She will return in the office in 6 weeks to re-evaluate. She is agreeable to this plan and verbalizes understanding of instructions. She was given the opportunity to ask questions and all questions answered. ? Thank you for allowing me to participate in her care Orders Orders H pylori Ag Stool Today K21.9 CT soft tissue neck w IV con Today K21.9, R09.89 Blood Urea Nitrogen Today R10.11 Creatinine Today R10.11 Medications New lansoprazole 30 mg PO DAILY 30 caps 3RF K21.9 Discontinued famotidine (Pepcid) Discontinued Reason: Doctor's Order 20 mg PO BEDTIME 30 tabs 3RF K21.9 pantoprazole take one tablet half an hour before breakfast Discontinued Reason: Doctor's Order 40 mg PO DAILY 90 tabs 2RF K21.9 UPPER ENDOSCOPY Findings: Larynx: Edema and erythema of the arytenoid cartilages Esophagus: GE junction at 40 cms. No esophagitis or Montelongo's. Biopsies were obtained from distal esophagus to check for microscopic esophagitis Stomach: Mild diffuse gastric erythema - biopsies were obtained from the antrum. A 3-4 mm benign appearing polyp in the gastric body - removed with a cold bx Grade 2 flap valve on retroflexed examination of the cardia. Duodenum: Normal bulb and descending duodenum Intervention: Biopsies as noted above Impression and Post Procedure Diagnosis: Endoscopy Findings: LARYNX: Edema and erythema of the arytenoid cartilages suggestive of LPRD and likely cause of globus sensation ESOPHAGUS: GE junction at 40 cms. No esophagitis or Montelongo's. Biopsies were obtained from distal esophagus to check for microscopic esophagitis STOMACH: Mild diffuse gastric erythema - biopsies were obtained from the antrum. A 3-4 mm benign appearing polyp in the gastric body - removed with a cold bx Pt's symptoms are likely due to LPRD. Pt stated she has noted some improvement since she started taking Lansoprazole Plan: If symptoms persist, dose of lansoprazole can be increased to twice daily. PATHOLOGY RESULTS Not available. Patient had procedure yesterday TODAY'S VISIT Patient is here today for follow-up and to discuss upper endoscopy results. Patient denies any ill effects from anesthesia. Mild soreness to her throat. Patient denies dysphagia. Since she started taking lansoprazole patient reports that her symptoms have improved. Patient reports that she has been doing much better. Patient denies any dyspepsia, dysphagia or odynophagia. Patient is also trying to avoid dietary triggers. Trying to stay away from spicy food. Patient is avoiding eating late at night. [facility] Medical History Tonsillitis No known health problems Surgical History History of esophagogastroduodenoscopy (EGD) Hx of shoulder surgery Hx of foot operation Family History Father HTN (hypertension) Social History Household Members: Family Housing: [facility] Patient Tobacco Use Status: Never used Tobacco e-Cigarette/Vaping Use: Never Used Second Hand Smoke Exposure: No service: No Current occupational status: employed Cognitive needs: No Hearing needs: No Vision needs: No Review of Systems Const Denies weight gain and Denies weight loss ENT Reports no additional complaints, Denies dysphagia and Denies odynophagia Card Reports no additional complaints Resp Reports no additional complaints GI Denies abdominal pain, Denies belching, Denies melena, Denies bloating, Denies change in bowel habits, Denies dysphagia, Denies excessive flatus, Denies dyspepsia, Reports heartburn (Occasional), Denies diarrhea, Denies loose stools, Denies nausea, Denies odynophagia and Denies vomiting Reports no additional complaints Musc Reports no additional complaints Neuro Reports no additional complaints Psych Reports no additional complaints Endo Reports no additional complaints Physical Exam Vital Signs: Last Vital Signs Pulse 68 05/21/24 10:36 BP 136/84 05/21/24 10:36 Pulse Ox 99 05/21/24 10:36 Oxygen Delivery Method Room Air 05/21/24 10:36 BMI result Body Mass Index 27.7 Const General: healthy appearing, no acute distress and well developed Nutritional Appearance: obese Orientation/consciousness: patient oriented x3 Resp Effort & Inspection: normal respiratory effort, able to speak in complete sentences, no tracheal deviation and symmetric chest movement Auscultation: clear to auscultation bilaterally Cardio Rate: regular rate GI Inspection: Yes normal to inspection, No distended and Yes obesity Palpation (GI): Soft to palpation, not firm, nontender and No hepatosplenomegaly present Auscultation: normal bowel sounds General: Yes no CVA tenderness Back/Spine/Pelvis Back: no CVA tenderness Skin General skin exam: elasticity normal, turgor normal and dry skin Neuro General: patient oriented x3 Psych Appearance: grossly normal Mental Status: mental status grossly normal Assessment & Plan Assessment & Plan (1) Globus sensation: Code(s): R09.89 - Other specified symptoms and signs involving the circulatory and respiratory systems Category: Medical (2) Gastroesophageal reflux disease: Code(s): K21.9 - Gastro-esophageal reflux disease without esophagitis Category: Medical Qualifiers: Esophagitis presence: esophagitis presence not specified Qualified Code(s): K21.9 - Gastro-esophageal reflux disease without esophagitis Plan Patient will continue lansoprazole daily. She will call if her symptoms will get worse in the afternoon we will order twice a day. Patient can stay on current dose and schedule. Avoid dietary triggers and late night snacking. LPRD most likely related to severe acid reflux and eating late at night. Patient will return in 3 months for re-evaluation. Patient is agreeable to this plan and verbalizes understanding of instructions. She was given the opportunity to ask questions and all questions answered. Thank you for allowing me to participate in her care Medications: New cetirizine (All Day Allergy (cetirizine)) 10 mg PO DAILY PRN 30 tabs 0RF allergy symptoms Coding Level of Care Code Est Pt Level 3 (49233) Diagnoses Globus sensation R09.89 Gastroesophageal reflux disease, unspecified whether esophagitis present K21.9 Esophagitis presence: esophagitis presence not specified Time Spent (min) 30 Comment 20 minutes spent with patient and additional 10 minutes spent reviewing her records
[2024-05-21 10:36] VITALS: BP 136/84; PULSE 68; O2SAT 99; BMI 27.7
== END 2024-05-21 10:58 | disposition home or self-care (01) ==
PROVIDERS: PCP Family Medicine; Visit Provider Nurse Practitioner Family
DX: R09.89 Other specified symptoms and signs involving the circulatory and respiratory systems (principal); K21.9 Gastro-esophageal reflux disease without esophagitis
CPT/HCPCS: 99213

== ENCOUNTER → 2024-05-21 10:03 | Outpatient (BNVA) | payer OTHER, SELFPAY | PROVIDERS: PCP Family Medicine; Visit Provider Nurse Practitioner Family | DX: R09.89 Other specified symptoms and signs involving the circulatory and respiratory systems (principal); K21.9 Gastro-esophageal reflux disease without esophagitis | CPT/HCPCS: 99212 ==

== ENCOUNTER 2024-07-11 13:26 | Outpatient (AMB) | payer OTHER, SELFPAY ==
--- NOTE | 2024-07-11 13:44 | A.OFFPC_ITS ---
Vital Signs 07/11/24 13:46 Height 5 ft 5 in Weight 169 lb 8 oz BMI 28.2 BP 110/70 Blood Pressure Location Lt brachial Position Sitting Respiration 16 Pulse 80 Pulse Source Pulse Oximeter Temp 98 F Temp Source Tympanic Pulse Oximetry (%) 98 Oxygen Delivery Method Room Air Intake Visit Reasons: f/u hypercholesterolemia Intake Note: f/u high cholesterol Allergies Milk Containing Products (Dairy) Adverse Reaction (Unknown, Verified 07/11/24 13:45) Unknown Medication List - Last Reconciled 07/11/24 by Danie Wall MD cetirizine (All Day Allergy (cetirizine)) 10 mg PO DAILY PRN 90 days cetirizine-pseudoephedrine 5-120 mg ER (All Day Allergy-D) 1 tab PO Q12H PRN fluticasone propionate 50 mcg/actuation (Aller-Jame) 2 sprays intranasal DAILY fluticasone propionate 50 mcg/actuation (Flonase Allergy Relief) 1 spray intranasal BID L norgest/e.estradiol-e.estrad 0.1 mg-20 mcg (84)/10 mcg (7) PO lansoprazole 30 mg PO DAILY Tobacco use date assessed: 02/21/24 Dental Screening Dental Screen Date: 02/21/24 HPI f/u hypercholesterolemia HPI Details 34 y/o female presents to f/u hyperchole sterolemia. No recent lipid panel to review. LDL had been high at 156 from labs drawn 02/19/24. She reports she had asked her father if her sister had breast cancer but she states father had stated sister had bone cancer. Pt reports an episode of queasiness/shakiness and pre-syncope and states this was an episode of low blood sugars. She notes she had been told by a doctor she had hypoglycemia in the past. HPI Comments History of Present Illness Details Documentation assistance for Danie Wall MD, was provided by Geoff Mccauley,? Senior Investment Manager on 07/11/2024 at 2:05 PM EST. I, Dr. Wall, have read, observe d, and verified documentation. [facility] Medical History Tonsillitis No known health problems Surgical History History of esophagogastroduodenoscopy (EGD) Hx of shoulder surgery Hx of foot operation Family History Father HTN (hypertension) Social History [facility]hold Members: [facility] Tobacco Use Status: Never used Tobacco e-Cigarette/Vaping Use: Never Used Second Hand Smoke Exposure: No service: No Current occupational status: employed Cognitive needs: No Hearing needs: No Vision needs: No Questionnaire Thrive Questionnaire Date Thrive assessed: 02/21/24 JAMEEL-7 AMB Questionnaire JAMEEL-7 Date JAMEEL - 7 assessed: 02/21/24 Source: Developed by Drs. Ramone Mayfield, Maisha Balbuena, Ap Chand and colleagues, with an educational charity from [employer]. Review of Systems Const Denies chills, Denies fatigue, Denies fever(s), Denies headache(s) and Denies weakness ENT Denies dizziness and Denies headache(s) Card Denies chest pain, Denies lightheadedness, Denies dyspnea and Denies other (Palpitations) Resp Denies cough, Denies dyspnea, Denies wheezing and Denies other ( shortness of breath) Musc Denies numbness and Denies tingling Neuro Denies dizziness, Denies headache(s), Denies numbness, Denies tingling, Denies paresthesias and Denies weakness Psych Denies anxiety and Denies depression Endo Denies fatigue Aller/Immun Denies wheezing Physical exam (Primary Care) Vital Signs: Last Vital Signs Temp 98 F 07/11/24 13:46 Pulse 80 07/11/24 13:46 Resp 16 07/11/24 13:46 BP 110/70 07/11/24 13:46 Pulse Ox 98 07/11/24 13:46 Oxygen Delivery Method Room Air 07/11/24 13:46 BMI result Body Mass Index 28.2 Tobacco/Smoking Status: Tobacco use Status Tobacco use date assessed 02/21/24 07/11/24 13:48 Patient Tobacco Use Status Never used Tobacco 07/11/24 13:48 e-Cigarette/Vaping Use Never Used 07/11/24 13:48 Thrive Assessment: Date of Thrive Assessment Date Thrive assessed 02/21/24 07/11/24 13:48 Const General: no acute distress and well developed Nutritional Appearance: well nourished Orientation/consciousness: patient oriented x3 HENMT Head: Yes normocephalic and Yes atraumatic Eyes General: appearance normal, both eyes and all related structures Pupils: Equal, round and reactive pupils present EOM: EOMs intact bilaterally Resp Effort & Inspection: normal respiratory effort Auscultation: clear to auscultation bilaterally Cardio Rate: regular rate Rhythm: regular rhythm Heart sounds: S1 normal heart sound present, S2 normal heart sound present, no gallops, no murmurs and no rubs Neuro General: patient oriented x3 and gait normal Cranial nerves: Yes Equal, round and reactive pupils present Psych Affect: normal affect Assessment and Plan Assessment & Plan (1) Hypercholesterolemia: Code(s): E78.00 - Pure hypercholesterolemia, unspecified Plan: Patient?had?elevated?cholesterol?levels?but?has?not?gotten?her?labs?drawn?yet.?? She?will?get?those?done?today?and?we?can?follow-up?at?her?next?appointment (2) Pre-syncope: Code(s): R55 - Syncope and collapse Plan: Patient?with?anxiety?and?panic?noted?an?episode?presyncope?along?with?c lamminess,?blurred?vision?and?nausea Likely?vasovagal?response. However,?patient?has?had?symptoms?like?this?before EKG?last?year?was?normal Will?check?echocardiogram and?lab?work As?above,?most?likely?vasovagal?response?and?reassured?patient?but?will?follow- up?on?above?testing. (3) Shakiness: Code(s): R25.1 - Tremor, unspecified Plan: As?above Orders: Orders Complete Blood Count Auto Diff Today R55 - Syncope and collapse, Z00.00 - Encounter for general adult medical examination without abnormal findings Comprehensive [place]. Panel Fast Today R55 - Syncope and collapse, Z00.00 - Encounter for general adult medical examination without abnormal findings TSH reflex Free T4 Today R55 - Syncope and collapse, Z00.00 - Encounter for general adult medical examination without abnormal findings CA echo transthoracic complete Today R55 - Syncope and collapse Hemoglobin A1c Today R55 - Syncope and collapse, R73.01 - Impaired fasting glucose Coding Level of Care Code Est Pt Level 4 (80672) Diagnoses Hypercholesterolemia E78.00 Pre-syncope R55 Shakiness R25.1
[2024-07-11 13:46] VITALS: BP 110/70; PULSE 80; RESP 16; TEMP 36.6; O2SAT 98; BMI 28.2
== END 2024-07-11 14:11 | disposition home or self-care (01) ==
PROVIDERS: PCP Family Medicine; Visit Provider Family Medicine
DX: E78.00 Pure hypercholesterolemia, unspecified (principal); R55 Syncope and collapse; R25.1 Tremor, unspecified
CPT/HCPCS: 99214

== ENCOUNTER 2024-07-11 14:23 | Outpatient (REF) | payer OTHER, SELFPAY ==
[2024-07-11 17:14] LABS: MANUAL DIFF FLAG NO
[2024-07-11 17:19] LABS: Basophils Percent Auto 0.9 % (0-2); Eosinophils Percent Auto 0.4 % (0-4); Hemoglobin 13.5 g/dl (12.0-16.0); Imm Gran Abs Auto 0.01 X10*3/uL (0.00-0.03); Imm Gran Pct Auto 0.2 % (0.0-0.4); Lymphocytes Percent Auto 44.1 % (20-40); Mean Corpuscular HGB Conc 33.8 g/dl (31.0-35.0); Mean Corpuscular Volume 94.8 fL (80.0-98.0); Mean Platelet Volume 12.2 fL (9.4-12.3); Monocytes Absolute Auto 0.4 X10*3/uL (0.1-1.2); Monocytes Percent Auto 9.1 % (2-11); Neutrophils Absolute Auto 2.1 x10*3/uL (2.0-8.3); Neutrophils Percent Auto 45.3 % (45-73); Platelet Count 226 X10*3/uL (160-400); Red Blood Count 4.22 X10*6/uL (4.20-5.50); Red Cell Distribution Width 12.1 % (11.0-16.0); White Blood Count 4.6 X10*3/uL (4.8-10.8)
[2024-07-11 18:18] LABS: Alanine Aminotransferase 15 U/L (0-31); Albumin Level 4.1 g/dL (3.5-5.0); Alkaline Phosphatase 45 U/L (39-117); Anion Gap 16 (12-20); Aspartate Amino Transferase 18 U/L (5-31); Bilirubin Total 0.5 mg/dL (0.0-1.0); Blood Urea Nitrogen 8 mg/dL (9-16); Carbon Dioxide 21 mmol/L (22-29); Chloride 107 mmol/L (96-108); Cholesterol 218 mg/dL (<200); Estimated Glomerular Filt Rate > 60; Glucose Fasting 75 mg/dL (60-99); HDL Cholesterol 54 mg/dL (>40); LDL Cholesterol Calculated 146 mg/dL (<100); Potassium 3.5 mmol/L (3.3-5.1); Sodium 140 mmol/L (135-145); Total Protein 7.7 g/dL (6.5-8.0); Triglycerides 91 mg/dL (<150)
[2024-07-11 18:31] LABS: TSH reflex Free T4 0.46 uIU/mL (0.32-4.0)
[2024-07-12 04:11] LABS: Estimated Average Glucose 80 mg/dL; Hemoglobin A1c % 4.4 % (<6.0)
== END 2024-07-11 14:24 | disposition home or self-care (01) ==
LOC: HO.WFDLDS 14:23
PROVIDERS: Visit Provider Family Medicine
DX: Z00.00 Encounter for general adult medical examination without abnormal findings (principal); E78.00 Pure hypercholesterolemia, unspecified; R55 Syncope and collapse; R73.01 Impaired fasting glucose
CPT/HCPCS: 36415; 80053; 80061; 83036; 84443; 85025

== ENCOUNTER 2024-07-29 19:59 | Emergency (ER) | payer OTHER, SELFPAY ==
[2024-07-29 20:17] VITALS: BP 152/89; PULSE 81; RESP 18; TEMP 36.7; O2SAT 100; BMI 28.5
--- NOTE | 2024-07-29 20:18 | ECG_ITS ---
Test Reason : PAIN Blood Pressure : / mmHG Vent. Rate : 082 BPM Atrial Rate : 082 BPM P-R Int : 144 ms QRS Dur : 090 ms QT Int : 366 ms P-R-T Axes : 030 014 023 degrees QTc Int : 427 ms Normal sinus rhythm Septal infarct , age undetermined Abnormal ECG When compared with ECG of 03-JAN-2023 13:01, Septal infarct is now Present Referred By: Salvatore Sy Electronically Signed By:SHAKA DE LEON
--- NOTE | 2024-07-29 20:19 | ED.GENADULT ---
HPI - General Adult General Chief complaint: General Medical Stated complaint: Throat issues/sore/neck feels tight Time Seen by Provider: 07/29/24 21:56 Source: patient Limitations: no limitations History of Present Illness ED Provider: Kerline Bauer PA-C HPI narrative: 34-year-old female with history of GERD, ongoing globus sensation, anxiety with a panic attacks, presents with sore throat. Patient states she has been having issues with acid reflux for years. She is followed by Gastroenterology, has had endoscopy, has had a recent gastric biopsy 04/2024. Patient has been on numerous PPIs, they only alleviate her symptoms for brief periods at a time. Patient states she avoids dietary triggers as directed by her slipper maker. Patient states she constantly has globus sensation, and feels as if she constantly has to clear her throat. Patient has currently developed a new sore throat and hoarseness of her voice. Patient has not received results from her gastric biopsy, her GI specialist is currently on vacation. Denies inability to tolerate oral intake, she has not had recent fevers. Related Data Home Medications ?Medication ?Instructions ?Recorded ?Confirmed L norgest/E estradiol-E estrad 0.1 PO 05/21/24 07/11/24 mg-20 mcg (84)/10 mcg (7) tabs,3mos Previous Rx's ?Medication ?Instructions ?Recorded cetirizine 5 mg-pseudoephedrine ER 1 tab PO Q12H PRN allergy symptoms 12/21/22 120 mg tablet,extended #30 tabs release,12hr (All Day Allergy-D) fluticasone propionate 50 2 spray intranasal DAILY #16 grams 12/21/22 mcg/actuation nasal spray,suspension (Aller-Jame) fluticasone propionate 50 1 spray intranasal BID #16 grams 12/26/23 mcg/actuation nasal spray,suspension (Flonase Allergy Relief) cetirizine 10 mg tablet (All Day 10 mg PO DAILY PRN allergy 05/21/24 Allergy (cetirizine)) symptoms 90 days #90 tabs lansoprazole 30 mg capsule,delayed 30 mg PO DAILY #30 caps 07/22/24 release sucralfate 100 mg/mL oral 10 ml PO QID #420 mL 07/29/24 suspension (Carafate) Allergies Allergy/AdvReac Type Severity Reaction Status Date / Time Milk Containing Products AdvReac Unknown Unknown Verified 07/29/24 20:20 (Dairy) Review of Systems Review of Systems: Yes all other systems are reviewed and are negative Constitutional: Constitutional: Denies fever(s) ENT: Denies mouth pain, Denies neck pain, Reports odynophagia and Reports sore throat Cardiovascular: Cardiovascular: Denies chest pain and Denies dyspnea Respiratory: Respiratory: Denies dyspnea Gastrointestinal: Gastrointestinal: Reports odynophagia and Denies vomiting Musculoskeletal: Musculoskeletal: Denies neck pain [facility] Past Medical History Attestation statement: The following information was validated with the patient. Medical History Tonsillitis No known health problems Surgical History History of esophagogastroduodenoscopy (EGD) Hx of shoulder surgery Hx of foot operation Family History Family History Father HTN (hypertension) Social History Social History Household Members: Family Housing: Condominium Patient Tobacco Use Status: Never used Tobacco Smoked in Last 30 Days: No e-Cigarette/Vaping Use: Never Used Second Hand Smoke Exposure: No Substance Use Type: Marijuana Advance Directives: No Advance Directives Information Provided: No Do you have a plan to hurt others: No Plan Patient : No service: No Current occupational status: employed Cognitive needs: No Hearing needs: No Vision needs: No Physical Exam ED Vital Signs: Vital Signs - 24 hr 07/29/24 20:17 07/29/24 22:03 07/29/24 23:58 Temperature 98.0 F 98.4 F 98.4 F Pulse Rate 81 77 82 Respiratory Rate 18 18 19 Blood Pressure 152/89 H 138/87 145/92 H Pulse Oximetry 100 100 100 Oxygen Delivery Method Room Air Room Air Room Air 07/29/24 23:59 Temperature 98.4 F Pulse Rate 82 Respiratory Rate 19 Blood Pressure 145/92 H Pulse Oximetry 100 Oxygen Delivery Method Room Air BMI result Body Mass Index 28.5 Const Other: Alert, overall well in appearance, there was a hoarseness quality of her voice Orientation/consciousness: patient oriented x3 HENWI Other: 0P is not erythematous, no exudates noted, no trismus no drooling, uvula midline..... No sublingual fluctuance, no swelling inferior to the jawline Neck Other: Soft supple, full range of motion Resp Other: Nonlabored respirations Cardio Other: Normal peripheral perfusion Skin Other: Warm dry no rash Neuro General: patient oriented x3, no focal motor deficits and CN's II-XI intact bilaterally Psych Other: Cooperative Course Course Course Narrative: [facility], this is a rapid medical exam performed by Peterson Sy please refer to primary provider for complete H&P- 34 female presents for evaluation discomfort in her throat. She reports nausea vomiting weakness. She reports pain treated for ?globus sensation. She is currently on lansoprazole Medications Administered Discontinued Medications Generic Name Dose Route Start Last Admin Trade Name Freq PRN Reason Stop Dose Admin Dexamethasone 10 mg 07/29/24 23:47 07/29/24 23:56 Dexamethasone 2 Mg Tablet PO 07/29/24 23:48 10 mg ONCE ONE Administration Sucralfate 1 gm 07/29/24 23:47 07/29/24 23:56 Sucralfate Oral Suspension 1 Gm/10 Ml Oral.Susp PO 07/29/24 23:48 1 gm ONCE ONE Administration Medical Decision Making Medical Decision Making [facility] Narrative: 34-year-old female with history of GERD, ongoing globus sensation, anxiety with a panic attacks, presents with sore throat. Patient states she has been having issues with acid reflux for years. She is followed by Gastroenterology, has had endoscopy, has had a recent gastric biopsy 04/2024. Patient has been on numerous PPIs, they only alleviate her symptoms for brief periods at a time. Patient states she avoids dietary triggers as directed by her slipper maker. Patient states she constantly has globus sensation, and feels as if she constantly has to clear her throat. Patient has currently developed a new sore throat and hoarseness of her voice. Patient has not received results from her gastric biopsy, her GI specialist is currently on vacation. Denies inability to tolerate oral intake, she has not had recent fevers. Problem: Ongoing poorly controlled occurred with the globus sensation, anxiety History: Per patient I have considered the following differential diagnoses: Strep pharyngitis, RPA, [employer] REPRESENTATIVE, globus sensation, poorly controlled GERD, esophageal stricture, esophageal dysmotility Plan: The patient requires further GI consult for her chronic ongoing acid reflux. Screening labs were initiated including a strep screen out in [facility]. Thought about other etiology as cause for her symptoms; our PA versus [employer] REPRESENTATIVE, however she has no red flag signs symptoms on exam to suggest either condition. She states she has had endoscopy, no strictures were found per her report. It sounds as if she may require an esophageal motility study. Overnight, I will try a 1 time dose of Decadron, her throat is irritated, perhaps it will be helpful. We will also try Carafate. She does understand that she needs to follow up with her slipper maker, that given the chronicity of her symptoms, there is nothing else to do overnight from the emergency department. I have independently reviewed the following tests: Labs: Rapid strep negative, no leukocytosis noted, not anemic, no electrolyte abnormality, creatinine normal she is not dehydrated Lab Data 07/29/24 20:32 07/29/24 20:32 Labs: Lab Results 07/29/24 Range/Units 20:32 WBC 5.5 (4.8-10.8) X10*3/uL RBC 4.22 (4.20-5.50) X10*6/uL Hgb 13.5 (12.0-16.0) g/dl Hct 39.6 (37.0-47.0) % MCV 93.8 (80.0-98.0) fL MCH 32.0 (27.0-33.0) pg MCHC 34.1 (31.0-35.0) g/dl RDW 12.0 (11.0-16.0) % Plt Count 249 (160-400) X10*3/uL MPV 11.6 (9.4-12.3) fL Immature Gran % (Auto) 0.2 (0.0-0.4) % Neut % (Auto) 43.1 L (45-73) % Lymph % (Auto) 46.4 H (20-40) % [place] % (Auto) 8.9 (2-11) % Eos % (Auto) 0.9 (0-4) % Baso % (Auto) 0.5 (0-2) % Lymph # (Auto) 2.6 (1.2-4.9) X10*3/uL [place] # (Auto) 0.5 (0.1-1.2) X10*3/uL Eos # (Auto) 0.1 (0.0-0.4) X10*3/uL Baso # (Auto) 0.0 (0.0-0.2) X10*3/uL Abs Immat Gran (auto) 0.01 (0.00-0.03) X10*3/uL Absolute Neuts (auto) 2.4 (2.0-8.3) x10*3/uL Absolute Nucleated RBC 0.000 (0.0-0.012) X10*3/uL Nucleated RBC % (auto) 0.0 (0.0-0.2) /100WBC Sodium 140 (135-145) mmol/L Potassium 3.5 (3.3-5.1) mmol/L Chloride 107 (96-108) mmol/L Carbon Dioxide 23 (22-29) mmol/L Anion Gap 14 (12-20) BUN 6 L (9-16) mg/dL Creatinine 0.79 (0.5-1.4) mg/dL Estim Creat Clear Calc 102.4 Estimated GFR > 60 Random Glucose 89 (60-115) mg/dL Calcium 9.2 (8.4-10.2) mg/dL Total Bilirubin 0.3 (0.0-1.0) mg/dL AST 18 (5-31) U/L ALT 19 (0-31) U/L Alkaline Phosphatase 45 (39-117) U/L Total Protein 7.8 (6.5-8.0) g/dL Albumin 4.2 (3.5-5.0) g/dL Lipase 31 (8-78) U/L Beta HCG, Quant < 2 mIU/mL S. pyogenes GrpA LULY Negative (Negative) Discharge Plan Discharge Clinical Impression: Chronic GERD, Pharyngitis Patient Disposition: Home, Self-Care Instructions: Diet for Stomach Ulcers and Gastritis (ED) Additional Instructions: All of your labs are normal, including your rapid strep screen. See home care instructions. Use the Carafate as directed. You received a 1 time dose of Decadron, this is a steroid, with the hope that it will alleviate your throat inflammation. Follow up with your slipper maker. Prescriptions: New sucralfate [Carafate] 100 mg/mL suspension 10 ml PO QID Qty: 420 0RF Rx Instructions: swish in mouth and swallow; use after food/drink No Action cetirizine [All Day Allergy (cetirizine)] 10 mg tablet 10 mg PO DAILY PRN (Reason: allergy symptoms) 90 Days Qty: 90 0RF lansoprazole 30 mg capsule,delayed release(DR/EC) 30 mg PO DAILY Qty: 30 3RF fluticasone propionate [Aller-Jame] 50 mcg/actuation spray,suspension 2 spray intranasal DAILY Qty: 16 0RF Rx Instructions: administer into each nostril cetirizine-pseudoephedrine [All Day Allergy-D] 5-120 mg tablet extended release 12 hr 1 tab PO Q12H PRN (Reason: allergy symptoms) Qty: 30 0RF fluticasone propionate [Flonase Allergy Relief] 50 mcg/actuation spray,suspension 1 spray intranasal BID Qty: 16 0RF Rx Instructions: administer into each nostril twice a day for 2 weeks and daily L norgest/e.estradiol-e.estrad 0.1 mg-20 mcg (84)/10 mcg (7) tablets,dose pack,3 month PO Stand Alone Forms: Work/School Release Interventions: ED Discharge Assessment Last Done: 07/29/24 23:59 Discharge Date/Time: 07/30/24 00:02 Print Language: Mosotho
[2024-07-29 20:38] LABS: MANUAL DIFF FLAG NO
[2024-07-29 20:42] LABS: Basophils Percent Auto 0.5 % (0-2); Eosinophils Absolute Auto 0.1 X10*3/uL (0.0-0.4); Eosinophils Percent Auto 0.9 % (0-4); Hematocrit 39.6 % (37.0-47.0); Hemoglobin 13.5 g/dl (12.0-16.0); Imm Gran Abs Auto 0.01 X10*3/uL (0.00-0.03); Imm Gran Pct Auto 0.2 % (0.0-0.4); Lymphocytes Absolute Auto 2.6 X10*3/uL (1.2-4.9); Lymphocytes Percent Auto 46.4 % (20-40); Mean Corpuscular HGB Conc 34.1 g/dl (31.0-35.0); Mean Corpuscular Volume 93.8 fL (80.0-98.0); Mean Platelet Volume 11.6 fL (9.4-12.3); Monocytes Absolute Auto 0.5 X10*3/uL (0.1-1.2); Monocytes Percent Auto 8.9 % (2-11); Neutrophils Absolute Auto 2.4 x10*3/uL (2.0-8.3); Neutrophils Percent Auto 43.1 % (45-73); Platelet Count 249 X10*3/uL (160-400); Red Blood Count 4.22 X10*6/uL (4.20-5.50); White Blood Count 5.5 X10*3/uL (4.8-10.8)
[2024-07-29 20:48] LABS: IDNOW Serial# 9DB6401D; Strep A Nucleic Acid Negative (Negative)
[2024-07-29 20:52] LABS: Alanine Aminotransferase 19 U/L (0-31); Albumin Level 4.2 g/dL (3.5-5.0); Alkaline Phosphatase 45 U/L (39-117); Anion Gap 14 (12-20); Aspartate Amino Transferase 18 U/L (5-31); Bilirubin Total 0.3 mg/dL (0.0-1.0); Blood Urea Nitrogen 6 mg/dL (9-16); Calcium 9.2 mg/dL (8.4-10.2); Carbon Dioxide 23 mmol/L (22-29); Chloride 107 mmol/L (96-108); Creatinine Clr Calc Pharmacy 102.4; Estimated Glomerular Filt Rate > 60; Glucose Random 89 mg/dL (60-115); Lipase 31 U/L (8-78); Potassium 3.5 mmol/L (3.3-5.1); Sodium 140 mmol/L (135-145); Total Protein 7.8 g/dL (6.5-8.0)
[2024-07-29 21:00] LABS: HCG Quantitative < 2 mIU/mL
[2024-07-29 22:03] VITALS: BP 138/87; PULSE 77; RESP 18; TEMP 36.9; O2SAT 100
--- NOTE | 2024-07-29 22:07 | MHC.EDTECH ---
at this time this tech took VS on pt and rounded on them. Had attempted to take the pt's EKG however she stated that she had one done in triage, the EKG wasn't documented and but was transfered to the system at 2020 by HARI, in which I documented the EKG when taking the pt's VS. Call light given for safety and pt does not appear to be in any apparent distress.
[2024-07-29] MEDS: dexAMETHasone 2 MG TABLET 10 MG PO (23:56)
[2024-07-29] MEDS: Sucralfate Oral Suspension 1 GM/10 ML ORAL.SUSP PO (23:56)
[2024-07-29 23:58] VITALS: BP 145/92; PULSE 82; RESP 19; TEMP 36.9; O2SAT 100
[2024-07-29 23:59] VITALS: BP 145/92; PULSE 82; RESP 19; TEMP 36.9; O2SAT 100
== END 2024-07-30 00:02 | disposition home or self-care (01) ==
PROVIDERS: Physician Assistant; Emergency Provider Emergency Medicine; PCP Family Medicine
DX: J02.9 Acute pharyngitis, unspecified (principal); K21.9 Gastro-esophageal reflux disease without esophagitis; R07.89 Other chest pain; Z79.899 Other long term (current) drug therapy
CPT/HCPCS: 36415; 80053; 83690; 84702; 85025; 87651; 93005; 99283; 99284; J8540

== ENCOUNTER 2024-09-17 10:50 | Outpatient (AMB) | payer OTHER, SELFPAY ==
--- NOTE | 2024-09-17 11:00 | MHC.OFFVIS ---
Vital Signs 09/17/24 11:01 Height 5 ft 5 in Weight 175 lb 14.862 oz BMI 29.3 BP 142/94 H Blood Pressure Location Rt brachial Position Sitting Pulse 92 Pulse Source Pulse Oximeter Pulse Oximetry (%) 100 Oxygen Delivery Method Room Air Intake Visit Reasons: follow up Intake Note: Relevant Flags or Indicators ? Requires Boxing Trainer? N Anne-Marie presents in office today for a scheduled 3 mos FUV. CC; Since last visit; labs ordered ? done. Rx ordered ? no. Diagnostics/images ordered ? none. Relevant GI Sx as reported per pt? Nausea + Vomiting. Recently seen at [facility] for GI sx. ? Hx of any recent surgeries? EGD with Dr. Durham. Allergies Milk Containing Products (Dairy) Adverse Reaction (Unknown, Verified 09/17/24 11:00) Unknown HPI HPI follow up: Details: LAST VISIT: Globus sensation Gastroesophageal reflux disease Plan Patient will continue lansoprazole daily. She will call if her symptoms will get worse in the afternoon we will order twice a day. Patient can stay on current dose and schedule. Avoid dietary triggers and late night snacking. LPRD most likely related to severe acid reflux and eating late at night. Patient will return in 3 months for re-evaluation. Patient is agreeable to this plan and verbalizes understanding of instructions. She was given the opportunity to ask questions and all questions answered. ? Thank you for allowing me to participate in her care Medications New cetirizine (All Day Allergy (cetirizine)) 10 mg PO DAILY PRN 30 tabs 0RF allergy symptoms TODAY'S VISIT Patient is here today for follow-up. Patient had soft tissue and neck x-ray and did not show any abnormalities. Patient continues to have globus sensation. Feels like something is stuck in her throat and feels like she always have to clear her throat. Seen ENT in the past and was told that she has postnasal drip. Patient does admit to frequent sinus issues. Currently patient reports that she has pressure in the right sinus area as well as right ear pain. Patient reports that she is not experiencing any acid reflux. States that lansoprazole has been helping. Patient denies dyspepsia, dysphagia or odynophagia. Despite feeling like she has something stuck in her throat and feels like she needs to clear her told constantly she is able to swallow liquids and solids without any issue. Patient denies any melena, hematochezia. Patient was checked for multiple different allergies, however she does not remember if she ever was checked for any mold and not sure what other allergies she was checked for. We have done simple allergen test in the office, however that did not show any allergies. Patient reports that she has never seen an rotary drier feeder in the past [facility] Medical History Tonsillitis No known health problems Surgical History History of esophagogastroduodenoscopy (EGD) Hx of shoulder surgery Hx of foot operation Family History Father HTN (hypertension) Social History Household Members: [facility] Tobacco Use Status: Never used Tobacco e-Cigarette/Vaping Use: Never Used Second Hand Smoke Exposure: No Substance Use Type: Marijuana service: No Current occupational status: employed Cognitive needs: No Hearing needs: No Vision needs: No Physical Exam Vital Signs: Last Vital Signs Pulse 92 09/17/24 11:01 BP 142/94 H 09/17/24 11:01 Pulse Ox 100 09/17/24 11:01 Oxygen Delivery Method Room Air 09/17/24 11:01 BMI result Body Mass Index 29.3 Results Reviewed Results Reviewed: Soft tissue and neck x-ray FINDINGS: Nasopharynx/skull base: The fat planes of the skull base and soft tissues of the nasopharynx are unremarkable. The paranasal sinuses and mastoid air cells are well aerated. Degenerative changes of the right greater than left temporomandibular joints. Suprahyoid neck: The oropharynx, oral cavity, and bilateral salivary gland tissues are unremarkable. Infrahyoid neck: The hypopharynx and larynx are unremarkable. No aerodigestive tract mass. Thyroid: The thyroid gland is normal. Lymph nodes: There is no cervical chain lymphadenopathy. Lung apices: The partially visualized lung apices are clear. Vascular structures: No hemodynamically significant stenosis, dissection, or occlusion. Osseous structures: The osseous structures are intact without suspicious focal lesion. Other: The imaged portions of the brain parenchyma are unremarkable. CT/CT soft tissue neck w IV con IMPRESSION: Normal soft tissues of the neck. Assessment & Plan Assessment & Plan (1) Globus sensation: Code(s): R09.89 - Other specified symptoms and signs involving the circulatory and respiratory systems Category: Medical (2) Gastroesophageal reflux disease: Code(s): K21.9 - Gastro-esophageal reflux disease without esophagitis Category: Medical Qualifiers: Esophagitis presence: esophagitis presence not specified Qualified Code(s): K21.9 - Gastro-esophageal reflux disease without esophagitis Plan Patient reports pressure in the right sinus mild tenderness. Will send her for x-ray of facial bones. Referral to allergy and immunology. Patient will call them if she will not receive a phone call. Continue lansoprazole. Avoid dietary triggers and late night snacking. Staying upright for minimum 3 hours after meals discussed with patient. I will see patient in 6 months, sooner on as needed basis. She is agreeable to this plan and verbalizes understanding of instructions. She was given the opportunity to ask questions and all questions answered. Thank you for allowing me to participate in her care Orders: Orders XR facial bones <3V Today J34.89 - Other specified disorders of nose and nasal sinuses, R51.9 - Headache, unspecified Referrals Allergy & Immunology Referral J30.9 - Allergic rhinitis, unspecified, R09.89 - Other specified symptoms and signs involving the circulatory and respiratory systems Coding Level of Care Code Est Pt Level 4 (56816) Diagnoses Globus sensation R09.89 Gastroesophageal reflux disease, unspecified whether esophagitis present K21.9 Esophagitis presence: esophagitis presence not specified Time Spent (min) 35 Comment 20 minutes spent with patient and additional 15 minutes spent reviewing her records
[2024-09-17 11:01] VITALS: BP 142/94; PULSE 92; O2SAT 100; BMI 29.3
== END 2024-09-17 11:33 | disposition home or self-care (01) ==
PROVIDERS: PCP Family Medicine; Visit Provider Nurse Practitioner Family
DX: R09.89 Other specified symptoms and signs involving the circulatory and respiratory systems (principal); K21.9 Gastro-esophageal reflux disease without esophagitis
CPT/HCPCS: 99214

== ENCOUNTER 2024-09-17 10:50 | Outpatient (REF) | payer OTHER, SELFPAY ==
--- NOTE | ~2024-09-17 | XR_ITS ---
EXAMINATION: XR FACIAL BONES 4 VIEWS CLINICAL INFORMATION: Other specified disorders of nose and nasal sinuses J34.89. COMPARISON: CT Sinus without IV contrast 12/21/2022 TECHNIQUE: 4 views of the facial bones were obtained. FINDINGS: There are no fractures or dislocations. No bone, joint or soft tissue abnormality is demonstrated. Right sided nasal piercing. XR/XR facial bones <3V IMPRESSION: Unremarkable examination. Right sided nasal piercing. Electronically signed by: Jhon Abreu MD 11/06/2024 09:44 AM EST
== END 2024-09-17 10:51 | disposition home or self-care (01) ==
LOC: HO.XRAY 10:50
PROVIDERS: PCP Family Medicine; Visit Provider Nurse Practitioner Family
DX: K21.9 Gastro-esophageal reflux disease without esophagitis (principal); J34.89 Other specified disorders of nose and nasal sinuses; R51.9 Headache, unspecified; R09.89 Other specified symptoms and signs involving the circulatory and respiratory systems
CPT/HCPCS: 70140; 99212

== ENCOUNTER 2025-02-24 15:35 | Outpatient (AMB) | payer OTHER, SELFPAY ==
--- NOTE | 2025-02-24 15:55 | MHC.PC.OV ---
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 Required: No Allergies Milk Containing Products (Dairy) Adverse Reaction (Unknown, Verified 02/24/25 15:59) Unknown Medication List - Last Reconciled 02/24/25 by Danie Wall MD cetirizine (All Day Allergy (cetirizine)) 10 mg PO DAILY PRN 90 days cetirizine-pseudoephedrine 5-120 mg ER (All Day Allergy-D) 1 tab PO Q12H PRN fluticasone propionate 50 mcg/actuation (Aller-Jame) 2 sprays intranasal DAILY fluticasone propionate 50 mcg/actuation (Flonase Allergy Relief) 1 spray intranasal BID L norgest/e.estradiol-e.estrad 0.1 mg-20 mcg (84)/10 mcg (7) PO lansoprazole 30 mg PO DAILY Tobacco use date assessed: 02/21/24 Dental Screening Dental Screen Date: 02/21/24 HPI Globus Sensation HPI Details 35 y/o female presents today with complaints of globus sensation. Had seen GI in August. She reports ongoing flare-ups, symptoms for 2 years. Had a modified barium swallow, facial x-rays were negative. Had trialed sucralfate, omeprazole which did not help. Hx of anxiety, panic attacks. PFSH Medical History Tonsillitis No known health problems Surgical History History of esophagogastroduodenoscopy (EGD) Hx of shoulder surgery Hx of foot operation Family History Father HTN (hypertension) Social History Household Members: [facility] Patient Tobacco Use Status: Never used Tobacco e-Cigarette/Vaping Use: Never Used Second Hand Smoke Exposure: No Substance Use Type: Marijuana service: No Current occupational status: employed Cognitive needs: No Hearing needs: No Vision needs: No Questionnaire PHQ-9 Over the last 2 weeks, how often have you been bothered by any of the following problems? 1. Little interest or pleasure in doing things: not at all 2. Feeling down, depressed, or hopeless: not at all 3. Trouble falling or staying asleep, or sleeping too much: not at all 4. Feeling tired or having little energy: not at all 5. Poor appetite or overeating: not at all 6. Feeling bad about yourself - or that you are a failure or have let yourself or your family down: not at all 7. Trouble concentrating on things, such as reading the newspaper or watching television: not at all 8. Moving or speaking so slowly that other people could have noticed. Or the opposite - being so fidgety or restless that you have been moving around a lot more than usual: not at all 9. Thoughts that you would be better off or of hurting yourself in some way: not at all Total score: 0 Depression Screening Interpretation: Negative Depression Screening Done: Yes 83957 - PHQ-9 Billing: Yes Source: Developed by Drs. Ramone Mayfield, Maisha Balbuena, Ap Chand and colleagues, with an educational charity from [employer]. Thrive Questionnaire Date Thrive assessed: 02/21/24 I am a: Patient What is your living situation today?: I have a steady place to live Within the past 12 months, did the food you bought not last and you didn't have the money to get more?: Never true Within the past 12 months, did you worry whether your food would run out before you got money to buy more?: Never true Do you have trouble paying for medicines?: No Do you have trouble getting transportation to medical appointments?: No Do you have trouble paying your heating and electricity bill?: No Do you have trouble taking care of your child, family member or friend?: No Do you have trouble with day-to-day activities such as bathing, preparing meals, shopping, managing finances, etc.?: No Are you currently unemployed and looking for a job?: I choose not to answer this question Are you interested in more education?: No Please select the resources that you would like help with: None Currently or been in a relationship where the following occur: No concerns reported THRIVE Score: 0 AUDIT C Alcohol Use Questionnaire (AUDIT-C) 1. How often do you have a drink containing alcohol?: Monthly or less 2. How many drinks containing alcohol do you have on a typical day when you are drinking?: 1 or 2 3. How often do you have six or more drinks on one occasion?: Never Total Score: 1 JAMEEL-7 AMB Questionnaire JAMEEL-7 Date JAMEEL - 7 assessed: 02/24/25 Feeling nervous, anxious, or on edge: 0 = Not at all Not being able to stop or control worryin = Not at all Worrying too much about different things: 0 = Not at all Trouble relaxin = Not at all Being so restless that it is hard to sit still: 0 = Not at all Becoming easily annoyed or irritable: 0 = Not at all Feeling afraid as if something awful might happen: 0 = Not at all Total JAMEEL-7 score (0-4 normal; 5-9 mild; 10-14 moderate; 15-21 severe): 0 Source: Developed by Drs. Ramone Mayfield, Maisha Balbuena, Ap Chand and colleagues, with an educational charity from [employer]. JAMEEL-7 Assessment Billing JAMEEL-7 Assessment Tool: JAMEEL-7 Assessment 85409 Review of Systems Const Denies chills, Denies fatigue, Denies fever(s), Denies headache(s) and Denies weakness ENT Denies dizziness and Denies headache(s) Card Denies dyspnea Resp Denies cough, Denies dyspnea, Denies wheezing and Denies other (shortness of breath) Musc Denies numbness and Denies tingling Neuro Denies dizziness, Denies headache(s), Denies numbness, Denies tingling and Denies weakness Psych Denies anxiety and Denies depression Endo Denies fatigue Aller/Immun Denies wheezing Physical exam (Primary Care) Vital Signs: Last Vital Signs Temp 99.4 F 02/24/25 16:01 Pulse 87 02/24/25 16:01 Resp 16 02/24/25 16:01 BP 130/80 02/24/25 16:01 Pulse Ox 99 02/24/25 16:01 Oxygen Delivery Method Room Air 02/24/25 16:01 BMI result Body Mass Index 31.0 Tobacco/Smoking Status: Tobacco use Status Tobacco use date assessed 02/21/24 02/24/25 15:56 Patient Tobacco Use Status Never used Tobacco 02/24/25 15:56 e-Cigarette/Vaping Use Never Used 02/24/25 15:56 PHQ-9: PHQ-9 Score PHQ-9: Total score 0 02/24/25 16:27 Depression Screening Interpretation: Negative Thrive Assessment: Date of Thrive Assessment Date Thrive assessed 02/21/24 02/24/25 15:56 Currently or been in a relationship where the following occur: No concerns reported Const General: well developed; No acute distress Nutritional Appearance: well nourished Orientation/consciousness: patient oriented x3 HENMT Head: Yes normocephalic and Yes atraumatic Eyes General: appearance normal, both eyes and all related structures Pupils: Equal, round and reactive pupils present EOM: EOMs intact bilaterally Resp Effort & Inspection: normal respiratory effort Neuro General: patient oriented x3 and gait normal Cranial nerves: Yes Equal, round and reactive pupils present Psych Affect: normal affect Coding Level of Care Code Est Pt Level 4 (73521) Diagnoses Globus sensation R09.89 Anxiety F41.9 Additional Codes JAMEEL-7 Assessment Billing - JAMEEL-7 Assessment Tool: JAMEEL-7 Assessment 86025 ([id number]) PHQ-9 - 59315 - PHQ-9 Billing: Yes ([id number]) Assessment & Plan Assessment & Plan (1) Globus sensation: Code(s): R09.89 - Other specified symptoms and signs involving the circulatory and respiratory systems Category: Medical Plan: Patient?with?a?history?of anxiety?and?panic?attacks?presents?for?follow-up?of?ongoing?globus?sensation. She?has?been?seen?by?Gastroenterology?and?has?tried?PPIs?which?did?not?help. ?GI?workup?was?unremarkable. She?has?had?a?modified?barium?swallow?which?was?normal. She?has?seen?ear?nose?and?throat. I?do?not?have?knee?office?visit?note?from?ENT.??However,?patient?says?that?they?did?not?find?any?problems. Will?request?note?again. 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 She?is?already?seeing?a?therapist?and?I?recommended?she?discuss?treatments?such?as?CBT?for?vocal?cord?dysfunction. I?will?try?medication?for anxiety/stress. Blood?pressure?is?also?elevated.??Will?give?her?some?propranolol. She?will?follow-up?with?me?again?in?about?a?month. Will?review?ENT?visit?with?her.??May?need?referral?back?to?ENT. We?can?also?try?other?medications?for?anxiety. Patient?says?the?PPI?is?causing?itching?and?prior?PPI?was?giving?her?chest?pain. She?says?they?have?not?helped?with?any?stomach?acid?with?globus?sensation.??At?this?point,?she?can?stop?the?PPI (2) Anxiety: Code(s): F41.9 - Anxiety disorder, unspecified Category: Medical Plan: As?above,?will?try?a?low?dose?of?propranolol?10?mg BID?p.r.n. Plan Last?year?patient?had?had?a?syncopal?event?which?was?likely?a?vasovagal episode. Had?ordered?an?echocardiogram?which?she?never?had?done.??Ordering?this?again. We?can?follow-up?on?this?at?her?next?visit?as?well. Orders: Orders CA echo transthoracic complete Today R55 - Syncope and collapse Medications: New propranolol 10 mg PO BID PRN 60 tabs 0RF Throat tightness symptoms 30 days Discontinued lansoprazole Discontinued Reason: Doctor's Order 30 mg PO DAILY 90 caps 1RF K21.9 - Gastro-esophageal reflux disease without esophagitis
[2025-02-24 16:01] VITALS: BP 130/80; PULSE 87; RESP 16; TEMP 37.4; O2SAT 99; BMI 31.0
--- OUTSIDE RECORDS SUMMARY | 2025-02-24 18:27 | XMS_ITS | Data Portability ---
Author Organization [facility], [address] Address [address] [place] [address] Assessment No assessment recorded. Plan of Treatment Reminders Order Date Submit Date Provider Last Modified By Organization Details Last Modified Time Details Appointments None recorded. Lab rapid strep group A, throat 2021 022 [email or web address] _phylicia jesus, [address] [place] [address], [phone], 2 15:00:25 urinalysis, dipstick 2021 022 [email or web address] _phylicia jesus, [address] [place] [address], [phone], 2 15:00:25 test, urine 2021 022 [email or web address] [facility] [address] [place] [address], [phone], 2 15:00:25 rapid flu (A+B) 2021 022 [email or web address] _phylicia jesus, [address] [place] [address], [address], 2 15:00:25 rapid SARS CoV 2 Ag, QL IA, respiratory specimen 2021 022 [email or web address] _phylicia [facility], [address] [place] [address], [phone], 15:00:25 Referral None recorded. Procedures None recorded. Surgeries None recorded. Imaging None recorded. Medication Orders ondansetron 8 mg disintegrat ing tablet 2021 [email or web address] Not available 15:00:25 benzonatate 200 mg capsule 2021 [id number], [address] [place], [address], 15:00:42 prednisone 20 mg tablet 2021 [id number], [address] [place], [address], 15:00:41 albuterol sulfate HFA 90 mcg/actuati on aerosol inhaler 2021 [id number], [address] [place], [address], 15:00:42 Patient TargetsNo targets recorded. Patient Instructions Encounter Date Encounter Id Patient Instructions Last Modified By Organization Details Last Modified Time 11/11/2022 [id number] nausea and vomiting: care instructions Not available 11/11/2022 15:00:25 Try small amount s of clear liquids frequently. If vomiting occurs, wait 30-60 minutes before trying clear liquids again. Once you are able to tolerate clear liquids for at least 6 hours without vomiting, you can advance to a soft diet consisting of foods such as bananas, rice, applesauce, toast, crackers, and other foods rich in carbohydrates and low on fats and spices. If the diet is tolerated for 12-24 hours, you can slowly add other foods to your diet. If vomiting occurs, you should go back to clear liquids only and work your way back to a normal diet as outlined above. If much worse, you should seek treatment immediately. Not available 11/11/2022 14:02:41 Patient instruct ed on worsening signs and symptoms that would require further evaluation by ED or PCP such as fever of 101.0 or greater, congestion accompanied with coughing, vomiting, diarrhea, abdominal pain, decreased oral intake, lethargy, or other new symptom(s) experienced not discussed during this visit. Use humidifier and ensure good hydration. If you experience new concerning symptoms, shortness of breath, respiratory distress, or chest pain go to the ER. Use the medications prescribed. May use Decongestants if tolerated and no history of elevated blood pressure or Diabetes. Use saline nasal saline and Flonase daily for1 week. You may use tylenol for pain/fever. Do not take prednisone with Ibuprofen. Get some extra rest. When should you call for help? Call anytime you think you may need emergency care. For example, call if: You have severe trouble breathing. Call your doctor now or seek immediate medical care if: You have new or worse trouble breathing. You cough up dark brown or bloody mucus (sputum). You have a new or higher fever. You have a new rash. Watch closely for changes in your health, and be sure to contact your doctor if: You cough more deeply or more often, especially if you notice more mucus or a change in the color of your mucus. You are not getting better as expected. Not available 11/11/2022 15:00:38 Reason for Referral None Reported. Results Created Date Observation Date Name Description Value Unit Range Abnormal Flag Note LastModifiedBy Organization Detail LastModifiedTime 11/11/20 22 11/11/2022 rapid SARS CoV 2 Ag, QL IA, respi rator y speci men Unknown Analyte Normal =Negat john paul Not Available [address] [place], [address], 11/11/2022 14:56:52 11/11/20 22 11/11/2022 rapid SARS CoV 2 Ag, QL IA, respi rator y speci men Unknown Analyte negati ve Not Available [facility] [id number] [place], [address], 11/11/2022 14:56:52 11/11/20 22 11/11/2022 rapid flu (A+B) Unknown Analyte Normal = Negati ve Not Available [facility] [address], [place], [address], 11/11/2022 14:56:47 11/11/20 22 11/11/2022 rapid flu (A+B) Unknown Analyte negati ve Not Available obdulia [address], [place], [address], 11/11/2022 14:56:47 11/11/20 22 11/11/2022 rapid flu (A+B) Unknown Analyte Normal = Negati ve Not Available obdulia [address], [place], [address], 11/11/2022 14:56:47 11/11/20 22 11/11/2022 rapid flu (A+B) Unknown Analyte negati ve Not Available obdulia [address], [place], [address], 11/11/2022 14:56:47 11/11/20 22 11/11/2022 pregn carole test, urine Unknown Analyte Normal = Negati ve Not Available obdulia [address], [place], [address], 11/11/2022 14:55:44 11/11/20 22 11/11/2022 pregn carole test, urine Unknown Analyte negati ve Not Available obdulia [address], [place], [address], 11/11/2022 14:55:44 11/11/20 22 11/11/2022 urina lysis , dipst ick Unknown Analyte Normal = light yellow Not Available obdulia leigh [address], [place], [address], 11/11/2022 14:52:41 11/11/20 22 11/11/2022 urina lysis , dipst ick Unknown Analyte Light Yellow Not Available obdulia leigh [address], [place], [address], 11/11/2022 14:52:41 11/11/2011/11/2022 urina lysis , dipst ick Unknown Analyte Normal = clear Not Available 2099obdulia leigh [address], [place], [address], 11/11/2022 14:52:41 11/11/20 22 11/11/2022 urina lysis , dipst ick Unknown Analyte Slight ly Cloudy Not Available 2099obdulia leigh [address], [place], [address], 11/11/2022 14:52:41 11/11/20 22 11/11/2022 urina lysis , dipst ick Unknown Analyte Normal = negati ve Not Available 2099obdulia leigh [address], [place], [address], 11/11/2022 14:52:41 11/11/20 22 11/11/2022 urina lysis , dipst ick Unknown Analyte Negati ve Not Available 2099obdulia leigh [address], [place], [address], 11/11/2022 14:52:41 11/11/20 22 11/11/2022 urina lysis , dipst ick Unknown Analyte Normal = Negati ve Not Available 2099obdulia leigh [address], [place], [address], 11/11/2022 14:52:41 11/11/20 22 11/11/2022 urina lysis , dipst ick Unknown Analyte Negati ve Not Available 2099obdulia leigh [address], [place], [address], 11/11/2022 14:52:41 11/11/20 22 11/11/2022 urina lysis , dipst ick Unknown Analyte Normal = Negati ve Not Available 2099obdulia leigh [address], [place], [address], 11/11/2022 14:52:41 11/11/20 22 11/11/2022 urina lysis , dipst ick Unknown Analyte 80 mg/dL Not Available 2099obdulia leigh [address], [place], [address], 11/11/2022 14:52:41 11/11/20 22 11/11/2022 urina lysis , dipst ick Unknown Analyte Normal = 1.010, 1.015, 1.020 Not Available 2099obdulia leigh [address], [place], [address], 11/11/2022 14:52:41 11/11/20 22 11/11/2022 urina lysis , dipst ick Unknown Analyte 1.025 Not Available [address] [place], [place] [address]kimberly [address], [place], [address], 11/11/2022 14:52:41 11/11/20 22 11/11/2022 urina lysis , dipst ick Unknown Analyte Normal = Negati ve Not Available 2099obdulia leigh [address], [place], [place], [address], 11/11/2022 14:52:41 11/11/20 22 11/11/2022 urina lysis , dipst ick Unknown Analyte Negati ve Not Available 2099obdulia leigh [address], [place], [address], 11/11/2022 14:52:41 11/11/20 22 11/11/2022 urina lysis , dipst ick Unknown Analyte Normal = 6.5, 7.0, 7.5, 8.0 Not Available 2099obdulia leigh [address], [place], [address], 11/11/2022 14:52:41 11/11/20 22 11/11/2022 urina lysis , dipst ick Unknown Analyte 6.5 Not Available [address], [place], [address], 11/11/2022 14:52:41 11/11/20 22 11/11/2022 urina lysis , dipst ick Unknown Analyte Normal = Negati ve Not Available obdulia leigh [address], [place], [address], 11/11/2022 14:52:41 11/11/20 22 11/11/2022 urina lysis , dipst ick Unknown Analyte Negati ve Not Available obdulia leigh [address], [place], [address], 11/11/2022 14:52:41 11/11/20 22 11/11/2022 urina lysis , dipst ick Unknown Analyte Normal = 0.2, 1.0 Not Available 2099obdulia leigh [address], [place], [address], 11/11/2022 14:52:41 11/11/20 22 11/11/2022 urina lysis , dipst ick Unknown Analyte 0.2 E.U./d L Not Available 2099obdulia leigh [address], [place], [address], 11/11/2022 14:52:41 11/11/20 22 11/11/2022 urina lysis , dipst ick Unknown Analyte Normal = Negati ve Not Available 2099obdulia leigh [address], [place], [address], 11/11/2022 14:52:41 11/11/20 22 11/11/2022 urina lysis , dipst ick Unknown Analyte Negati ve Not Available [address] [place] [address], [place], [address], 11/11/2022 14:52:41 11/11/20 22 11/11/2022 urina lysis , dipst ick Unknown Analyte Normal = Negati ve Not Available [address] [place] [address], [place], [address], 11/11/2022 14:52:41 11/11/20 22 11/11/2022 urina lysis , dipst ick Unknown Analyte Negati ve Not Available [address] [place] [address], [address], 11/11/2022 14:52:41 11/11/20 22 11/11/2022 rapid strep group A, throa t Unknown Analyte Normal = Negati ve Not Available [address] [place] [address], [place], [address], 11/11/2022 14:05:37 11/11/20 22 11/11/2022 rapid strep group A, throa t Unknown Analyte negati ve Not Available [address] [place] [address], [address], 11/11/2022 14:05:37 Result Notes None recorded. Problems No Known Problems Procedures Surgical History Date Name Laterality Status Provider Name and Address Organization Details Recorded Time Shoulder joint surgery completed Kay Houston PA - [facility] 11/11/2022 14:05:13 procedure on foot completed Kay Eliane PA - [facility] 11/11/2022 14:05:25 Imaging Results None recorded. Procedure Notes None recorded. Medical Equipment None Reported. Allergies No known drug allergies Medications Name Sig Start Date Stop Date Status Note LastModified by Organization Details LastModified Time azithromyci n 250 mg tablet TAKE 2 TABLETS BY MOUTH TODAY, THEN TAKE 1 TABLET DAILY FOR 4 DAYS active Not Available Not Available No t Available benzonatate 200 mg capsule TAKE 1 CAPSULE BY MOUTH THREE TIMES A DAY FOR 7 DAYS active Not Available Not Available No t Available prednisone 20 mg tablet TAKE 2 TABLETS BY MOUTH EVERY DAY FOR 5 DAYS active Not Available Not Available No t Available doxycycline monohydrate 100 mg tablet TAKE 1 TABLET BY MOUTH TWICE A DAY WITH MEALS FOR 7 DAYS 11/11 completed Not Available Not Available Not Available ondansetron 8 mg disintegrat ing tablet Place 8 mg every day by transling ual route for 1 day. 2021 active Not Available Not Available Not Avai lable fluticasone propionate 50 mcg/actuati on nasal spray,suspe nsion SPRAY 2 SPRAYS INTO EACH NOSTRIL DAILY active Not Available Not Available No t Available Ventolin HFA 90 mcg/actuati on aerosol inhaler INHALE 2 PUFFS EVERY 4 HOURS FOR 7 DAYS active Not Available Not Available No t Available Allergy Relief-D (cetirizine ) 5 mg-120 mg tablet,exte nded release TAKE 1 TABLET BY MOUTH EVERY 12 HOURS NEEDED FOR ALLERGY active Not Available Not Available No t Available Vitals Date Recorded Body height Body mass index (BMI) Body weight Oxygen saturation Oxygen saturation in Arterial blood by Pulse oximetry Heart rate Respiratory rate Body temperature Systolic blood pressure Diastolic blood pressure Provider Name and Address Organization Details Last Updated DateTime 2 165.1 cm 24.1 kg/m2 53624.8 9 g 100 % 100 % 81 /min 22 /min 98 [degF] 128 mm[Hg] 88 mm[Hg] Kay Del Rio PA - [employer] 2 14:04:16 Social History Question Answer Notes LastModified by Organizat ion Details LastModified Time Tobacco Smoking Status Never Smoker Kay yates PA - [facility] 11/11/2022 14:05:02 What Is Your Level Of Alcohol Consumption? None Information not available 11/11/2022 Which Illicit Or Recreational Drugs Have You Used? [place] Information not available 11/11/2022 Have You Had Direct Contact, Or Contact During Intimacy, With Monkeypox Rash, Scabs, Or Body Fluids From A Person With Monkeypox? No Information not available 11/11/2022 Do You Use Any Illicit Or Recreational Drugs? Yes Information not available 11/11/2022 Have You Recently Traveled Abroad? No Information not available 11/11/2022 Do You Or Have You Ever Used Any Other Forms Of Tobacco Or Nicotine? No Information not available 11/11/2022 Sex: Unknown Functional Status None recorded. Mental Status None recorded. Family History Relationship Description Onset Age of this Age Resolved Age Notes LastModified by Organization Details LastModified Time Father No current problems or disability Not available 11/11 14:04:44 Mother No current problems or disability Not available 11/11 14:04:44 Medical History No medical history recorded. Gynecological HistoryNo gynecological history recorded. Obstetrics History GPAL:G 0 P 0 0 0 0 Past Encounters Encounter ID Performer Location Encounter Start Date Encounter Closed Date Diagnosis/Indication Diagnosis SNOMED-CT Code Diagnosis ICD10 Code Diagnosis Note [id number] [place] [address] [address] 11/11/2022 09:06:21 11/11/2022 15:03:24 Exposure to SARS-CoV-2 343628355 Z20.822 Nausea and vomiting 1693 1999 R11.2 Acute bronchitis 4619226 2 J20.9 Health Concerns Section Related Observation LastModified by Organization Detai ls LastModified Time None Recorded Concern Status LastModified by Organization Details LastModified Time None Recorded Advance Directives Directive None Recorded Payers Encounter Date Sequence Insurance Name Policy Number Policy Bautista Covered Member ID Bautista Member ID Guarantor Name 11/11/2022 1 [employer] - HEALTH NET PLAN (MEDICAID HMO) LISETTE Loomisb [id number] Anne-Marie Loomisb Notes Date Note Type Note Provider Name and Address Organization Details Recorded Time 11/11/2022 text/html Nausea [facility] bypatient.Notes:c ongested cough and nausea x 1 day. no fever or chills, complaint of SOB . MFK=603% at room air. Smoking marijuana recreational. Jeronimo Disla NP [address] [place], [address], PA - [facility] 11/11/2022 15:03:24 OBGyn Episode No OBEpisode recorded.
== END 2025-02-24 16:38 | disposition home or self-care (01) ==
LOC: HO.HMCFM 15:35
PROVIDERS: PCP Family Medicine; Visit Provider Family Medicine
DX: R09.89 Other specified symptoms and signs involving the circulatory and respiratory systems (principal); F41.9 Anxiety disorder, unspecified

== ENCOUNTER → 2025-02-24 15:35 | Outpatient (BNVA) | payer OTHER, SELFPAY | PROVIDERS: PCP Family Medicine; Visit Provider Family Medicine | DX: R09.89 Other specified symptoms and signs involving the circulatory and respiratory systems (principal); F41.9 Anxiety disorder, unspecified | CPT/HCPCS: 96127; 99212 ==

== ENCOUNTER → 2025-03-13 13:50 | Outpatient (REF) | payer OTHER, SELFPAY ==
--- NOTE | 2025-03-13 13:52 | CA_ITS ---
Transthoracic Echocardiogram Patient (Last, First, Middle): Anne-Marie Peoples, Gender: Female Date of : 1990 Age: 35 Procedure Date: 03/13/2025 Procedure Type: Transthoracic Echocardiogram Location: OP Height: 165.1 cm Weight: 83.01 kg BSA: 1.90 m2 Heart Rate: 73 bpm BP: 120 / 75 mmHg Assembly Leader: SUSI Muñoz MD: Danie Wall MD Sports Anchor: Mason Chandler MD Symptoms: R55 - Syncope and collapse Study Quality: Adequate ECG Rhythm: Sinus Conclusions: - Essentially normal study Findings Left Ventricle Normal left ventricular size, thickness, and systolic function. The visually estimated ejection fraction is between 55-60%. Spectral Doppler is indicative of a normal filling pattern. Right Ventricle Normal right ventricular cavity size and systolic function. Atria Both atria are normal in size. There is lipomatous hypertrophy of the interatrial septum. Interatrial shunt cannot be excluded. Aortic Valve Normal aortic valve structure and function. There is no aortic valve stenosis. There is no aortic valve regurgitation. Mitral Valve Normal mitral valve structure and function. There is trace mitral valve regurgitation. There is no mitral valve stenosis. Pulmonic Valve The pulmonic valve is likely normal. Tricuspid Valve Normal tricuspid valve structure. There is trace tricuspid valve regurgitation. The right ventricular systolic pressure is normal. The right ventricular systolic pressure is 11 mmHg. Normal right atrial pressure. There is no evidence of pulmonary hypertension. Great Vessels All visible segments of the aorta are normal in size. The pulmonary artery was not well visualized. Venous The inferior vena cava is normal in size and collapses greater than 50% with inspiration. Pericardium/Pleural There is no evidence of pericardial effusion. Prior Study Comparison No prior study available for comparison. Measurements 2D Linear Measurements IVSd: 0.91 0.6-0.9/0.6-1.0 cm LVIDd: 5.00 3.9-5.3/4.2-5.9 cm LVIDd Index: 2.63 2.4-3.2/2.2-3.1 cm/m2 LVIDs: 3.20 2.0-3.6 cm LVPWd: 0.85 0.7-1.1 cm LA Diam: 3.40 2.7-3.8/3.0-4.0 cm LAIDs Index: 1.79 1.5-2.3 cm/m2 LV Mass: 190.84 67-162/88-224 g LV Mass Index: 100.44 43-95/49-115 g/m2 LVOT Diam: 2.20 3.0+(-)1.3 cm 2D Systolic Function EF 4C: 57.90 >55% EF 2C: 59.90 >55% EF BiP: 58.40 >55% Mitral Valve MV Pk E: 0.85 MV PK A: 0.72 MV Decel Time: 174.00 E/A: 1.20 E'Lateral: 10.30 E'Medial: 6.74 E/E' Med: 12.70 E/E' Lat: 8.30 PHT: 51.00 MVA PHT: 4.31 Decel Conecuh: 4.89 Aortic Valve AoV Pk Colten: 1.21 AoV Mn Colten: 0.89 AoV VTI: 0.26 AoV Pk Grad: 6.00 Aov Mn Grad: 3.00 TA Cont.VTI: 3.01 LVOT LVOT Pk Colten: 0.98 LVOT Mn Colten: 0.70 LVOT VTI: 0.20 LVOT Pk Grad: 4.00 LVOT Mn Grad: 3.00 LVOT Diam: 2.20 LVOT Area: 3.80 Diastolic Function MV Pk E: 0.85 MV Pk A: 0.72 E/A: 1.20 E'Medial: 6.74 E/E' Med: 12.70 E' Laterial: 10.30 E/E' Lat: 8.30 Right Ventricle TAPSE (mm): 16.90 TVS' Colten: 10.40 Tricuspid Valve TR Pk Colten: 1.44 TR Pk Grad: 8.00 RA Press: 3.00 RVSP: 11.00 Great Vessels Aorta Sinus of Valsalva: 3.20 2.0-3.5 cm Ao Asc: 2.70 2.1-3.4 cm Pulmonary Valve PV Pk Colten: 0.79 Peak PV Grad: 2.00 Updated in Other Vendor System with Status of Final Mason Chandler MD electronically signed on 03/13/2025 3:52:01 PM with status of Final
--- OUTSIDE RECORDS SUMMARY | 2025-03-13 14:12 | XMS_ITS | Data Portability ---
Author Organization [facility], [address] Address [address] [place] [address] Assessment No assessment recorded. Plan of Treatment Reminders Order Date Submit Date Provider Last Modified By Organization Details Last Modified Time Details Appointments None recorded. Lab rapid strep group A, throat 2021 022 [email or web address] _phylicia jesus, [address] [place] [address], [phone], 2 15:00:25 urinalysis, dipstick 2021 022 [email or web address] _phylicia jesus, [address] [place] [address], [phone], 2 15:00:25 test, urine 2021 022 [email or web address] [facility] [address] [place] [address], [address], 2 15:00:25 rapid flu (A+B) 2021 022 [email or web address] _phylicia jesus, [address] [place] [address], [phone], 2 15:00:25 rapid SARS CoV 2 Ag, QL IA, respiratory specimen 2021 022 [email or web address] _phylicia [facility], [address] [place] [address], [phone], 15:00:25 Referral None recorded. Procedures None recorded. Surgeries None recorded. Imaging None recorded. Medication Orders ondansetron 8 mg disintegrat ing tablet 2021 [email or web address] Not available 15:00:25 benzonatate 200 mg capsule 2021 [id number], [address] [place], [address], 15:00:42 prednisone 20 mg tablet 2021 [id number], [address] [place], [address], 15:00:41 albuterol sulfate HFA 90 mcg/actuati on aerosol inhaler 2021 [id number], [address] [place], [address], 15:00:42 Patient TargetsNo targets recorded. Patient Instructions Encounter Date Encounter Id Patient Instructions Last Modified By Organization Details Last Modified Time 11/11/2022 [id number] nausea and vomiting: care instructions Not available [...] Analyte Normal =Negat john paul Not Available [address] [place], [address], 11/11/2022 14:56:52 11/11/20 22 11/11/2022 rapid SARS CoV 2 Ag, QL IA, respi rator y speci men Unknown Analyte negati ve Not Available [address] [place], [address], 11/11/2022 14:56:52 11/11/20 22 11/11/2022 rapid flu (A+B) Unknown Analyte Normal = Negati ve Not Available _[facility] [address], [place], [address], 11/11/2022 14:56:47 11/11/20 22 11/11/2022 rapid flu (A+B) Unknown Analyte negati ve Not Available obdulia [address], [place], [address], 11/11/2022 14:56:47 11/11/20 22 11/11/2022 rapid flu (A+B) Unknown Analyte Normal = Negati ve Not Available obdulia [address], [place], [address], 11/11/2022 14:56:47 11/11/20 22 11/11/2022 rapid flu (A+B) Unknown Analyte negati ve Not Available obdulia [address], [place], [address], 11/11/2022 14:56:47 11/11/20 22 11/11/2022 pregn carole test, urine Unknown Analyte Normal = Negati ve Not Available obdulia [address], [place], [address], 11/11/2022 14:55:44 11/11/20 22 11/11/2022 pregn carole test, urine Unknown Analyte negati ve Not Available obdulia [address], [place], [address], 11/11/2022 14:55:44 11/11/20 22 11/11/2022 urina lysis , dipst ick Unknown Analyte Normal = light yellow Not Available obdulia leigh [address], [place], [address], 11/11/2022 14:52:41 11/11/20 22 11/11/2022 urina lysis , dipst ick Unknown Analyte Light Yellow Not Available obdulia leigh [address], [place], [address], 11/11/2022 14:52:41 11/11/2011/11/2022 urina lysis , dipst ick Unknown Analyte Normal = clear Not Available 2099obdulia leigh [address], [place], [address], 11/11/2022 14:52:41 11/11/20 22 11/11/2022 urina lysis , dipst ick Unknown Analyte Slight ly Cloudy Not Available 2099obdulia leigh [address], [place], [address], 11/11/2022 14:52:41 11/11/20 22 11/11/2022 urina lysis , dipst ick Unknown Analyte Normal = negati ve Not Available 2099obdulia leigh [address], [place], [address], 11/11/2022 14:52:41 11/11/20 22 11/11/2022 urina lysis , dipst ick Unknown Analyte Negati ve Not Available 2099obdulia leigh [address], [place], [address], 11/11/2022 14:52:41 11/11/20 22 11/11/2022 urina lysis , dipst ick Unknown Analyte Normal = Negati ve Not Available 2099obdulia leigh [address], [place], [address], 11/11/2022 14:52:41 11/11/20 22 11/11/2022 urina lysis , dipst ick Unknown Analyte Negati ve Not Available 2099obdulia leigh [address], [place], [address], 11/11/2022 14:52:41 11/11/20 22 11/11/2022 urina lysis , dipst ick Unknown Analyte Normal = Negati ve Not Available 2099obdulia leigh [address], [place], [address], 11/11/2022 14:52:41 11/11/20 22 11/11/2022 urina lysis , dipst ick Unknown Analyte 80 mg/dL Not Available 2099obdulia leigh [address], [place], [address], 11/11/2022 14:52:41 11/11/20 22 11/11/2022 urina lysis , dipst ick Unknown Analyte Normal = 1.010, 1.015, 1.020 Not Available 2099obdulia leigh [address], [place], [address], 11/11/2022 14:52:41 11/11/20 22 11/11/2022 urina lysis , dipst ick Unknown Analyte 1.025 Not Available [address] [place], [place] [address]kimberly [address], [place], [address], 11/11/2022 14:52:41 11/11/20 22 11/11/2022 urina lysis , dipst ick Unknown Analyte Normal = Negati ve Not Available 2099obdulia leigh [address], [place], [place], [address], 11/11/2022 14:52:41 11/11/20 22 11/11/2022 urina lysis , dipst ick Unknown Analyte Negati ve Not Available 2099obdulia leigh [address], [place], [address], 11/11/2022 14:52:41 11/11/20 22 11/11/2022 urina lysis , dipst ick Unknown Analyte Normal = 6.5, 7.0, 7.5, 8.0 Not Available 2099obdulia leigh [address], [place], [address], 11/11/2022 14:52:41 11/11/20 22 11/11/2022 urina lysis , dipst ick Unknown Analyte 6.5 Not Available [address], [place], [address], 11/11/2022 14:52:41 11/11/20 22 11/11/2022 urina lysis , dipst ick Unknown Analyte Normal = Negati ve Not Available obdulia leigh [address], [place], [address], 11/11/2022 14:52:41 11/11/20 22 11/11/2022 urina lysis , dipst ick Unknown Analyte Negati ve Not Available obdulia leigh [address], [place], [address], 11/11/2022 14:52:41 11/11/20 22 11/11/2022 urina lysis , dipst ick Unknown Analyte Normal = 0.2, 1.0 Not Available 2099obdulia leigh [address], [place], [address], 11/11/2022 14:52:41 11/11/20 22 11/11/2022 urina lysis , dipst ick Unknown Analyte 0.2 E.U./d L Not Available 2099obdulia leigh [address], [place], [address], 11/11/2022 14:52:41 11/11/20 22 11/11/2022 urina lysis , dipst ick Unknown Analyte Normal = Negati ve Not Available 2099obdulia leigh [address], [place], [address], 11/11/2022 14:52:41 11/11/20 22 11/11/2022 urina lysis , dipst ick Unknown Analyte Negati ve Not Available [address] [place] [address], [place], [address], 11/11/2022 14:52:41 11/11/20 22 11/11/2022 urina lysis , dipst ick Unknown Analyte Normal = Negati ve Not Available [address] [place] [address], [place], [address], 11/11/2022 14:52:41 11/11/20 22 11/11/2022 urina lysis , dipst ick Unknown Analyte Negati ve Not Available [address] [place] [address], [address], 11/11/2022 14:52:41 11/11/20 22 11/11/2022 rapid strep group A, throa t Unknown Analyte Normal = Negati ve Not Available [address] [place] [address], [place], [address], 11/11/2022 14:05:37 11/11/20 22 11/11/2022 rapid strep group A, throa t Unknown Analyte negati ve Not Available [address] [place] [address], [address], 11/11/2022 14:05:37 Result Notes None recorded. Problems No Known Problems Procedures Surgical History Date Name Laterality Status Provider Name and Address Organization Details Recorded Time Shoulder joint surgery completed Kay Blackwater PA - [facility] 11/11/2022 14:05:13 procedure on foot completed Kay Blackwater PA - [facility] 11/11/2022 14:05:25 Imaging [...] Updated DateTime 2 165.1 cm 24.1 kg/m2 16991.8 9 g 100 % 100 % 81 /min 22 /min 98 [degF] 128 mm[Hg] 88 mm[Hg] Kay Del Rio PA - [facility] 2 14:04:16 Social History Question Answer Notes LastModified by Organizat ion Details LastModified Time Tobacco Smoking Status Never Smoker Kay yates PA - [facility] 11/11/2022 14:05:02 What Is Your Level Of Alcohol Consumption? None Information not available 11/11/2022 Which Illicit Or Recreational Drugs Have You Used? Venedocia Information not available 11/11/2022 Have You Had [...] SNOMED-CT Code Diagnosis ICD10 Code Diagnosis [place] [id number] [place] [address] [address] 11/11/2022 09:06:21 11/11/2022 15:03:24 Exposure to SARS-CoV-2 517438951 Z20.822 Nausea and vomiting 1693 1999 R11.2 Acute bronchitis 7776469 2 J20.9 Health Concerns Section Related Observation LastModified by Organization Detai ls LastModified Time None Recorded Concern Status LastModified by Organization Details LastModified Time None Recorded Advance Directives Directive None Recorded Payers Encounter Date Sequence Insurance Name Policy Number Policy Bautista Covered Member ID Bautista Member ID Guarantor Name 11/11/2022 1 [employer] - HEALTH NET PLAN (MEDICAID HMO) LISETTE Loomisb [id number] Anne-Marie Loomisb Notes Date Note Type Note Provider Name and Address Organization Details Recorded Time 11/11/2022 text/html Nausea [facility] bypatient.Notes:c ongested cough and nausea x 1 day. no fever or chills, complaint of SOB . AYM=839% at room air. Smoking marijuana recreational. Jeronimo Disla NP [address] [place], [address], PA - [facility] 11/11/2022 15:03:24 OBGyn Episode No OBEpisode recorded.
== END ==
LOC: HO.CARD 13:50
PROVIDERS: PCP Family Medicine; Visit Provider Family Medicine
DX: R55 Syncope and collapse (principal)
CPT/HCPCS: 93306

== ENCOUNTER → 2025-03-13 13:52 | Outpatient (BNV) | payer OTHER, SELFPAY | PROVIDERS: PCP Family Medicine; Visit Provider Internal Medicine Cardiovascular Disease | DX: R55 Syncope and collapse (principal) | CPT/HCPCS: 93306 ==

== ENCOUNTER → 2025-04-03 10:02 | Outpatient (BNVA) | payer SELFPAY | PROVIDERS: PCP Family Medicine; Visit Provider Physician Assistant | DX: Z02.79 Encounter for issue of other medical certificate (principal) ==

== ENCOUNTER 2025-04-23 14:29 | Outpatient (AMB) | payer OTHER, SELFPAY ==
--- NOTE | 2025-04-23 14:32 | MHC.PC.OV ---
Vital Signs 04/23/25 14:38 Height 5 ft 5 in Weight 186 lb 2 oz BMI 31.0 BP 132/72 Blood Pressure Location Lt brachial Position Sitting Respiration 16 Pulse 68 Pulse Source Pulse Oximeter Temp 100 F Temp Source Oral Pulse Oximetry (%) 100 Oxygen Delivery Method Room Air Intake Visit Reasons: follow up on meds Intake Note: patient is scheduled for med follow-up patient say that meds are not working need ajustment Allergies Milk Containing Products (Dairy) Adverse Reaction (Unknown, Verified 04/23/25 14:34) Unknown Medication List - Last Reconciled 04/23/25 by Danie Wall MD buspirone 7.5 mg PO BID 30 days cetirizine (All Day Allergy (cetirizine)) 10 mg PO DAILY PRN 90 days cetirizine-pseudoephedrine 5-120 mg ER (All Day Allergy-D) 1 tab PO Q12H PRN fluticasone propionate 50 mcg/actuation (Aller-Jame) 2 sprays intranasal DAILY fluticasone propionate 50 mcg/actuation (Flonase Allergy Relief) 1 spray intranasal BID L norgest/e.estradiol-e.estrad 0.1 mg-20 mcg (84)/10 mcg (7) PO propranolol 20 mg (2 x 10 mg) PO BID PRN 30 days Tobacco use date assessed: 04/23/25 Dental Screening Dental Screen Date: 02/21/24 Did you have a dental visit in the last 12 months?: No Did you have a dental problem in the last 6 months where you did not have access to dental care?: No Was dental information given to patient?: No HPI follow up on meds HPI Details 35 y/o female presents to f/u presyncope, anxiety, globus sensation. Echocardiogram was fine. Trialing her on propranolol. Initially was helping but she says less so now. Reports ongoing anxiety, globus sensation. She reports the tight feeling in her throat has been causing her increased anxiety. [facility] Medical History Tonsillitis No known health problems Surgical History History of esophagogastroduodenoscopy (EGD) Hx of shoulder surgery Hx of foot operation Family History Father HTN (hypertension) Social History Household Members: Family Housing: Condominium Patient Tobacco Use Status: Never used Tobacco e-Cigarette/Vaping Use: Never Used Second Hand Smoke Exposure: No Substance Use Type: Marijuana service: No Current occupational status: employed Cognitive needs: No Hearing needs: No Vision needs: No Questionnaire Thrive Questionnaire Date Thrive assessed: 02/24/25 I am a: Patient What is your living situation today?: I have a steady place to live Within the past 12 months, did the food you bought not last and you didn't have the money to get more?: Never true Within the past 12 months, did you worry whether your food would run out before you got money to buy more?: Never true Do you have trouble paying for medicines?: No Do you have trouble getting transportation to medical appointments?: No Do you have trouble paying your heating and electricity bill?: No Do you have trouble taking care of your child, family member or friend?: No Do you have trouble with day-to-day activities such as bathing, preparing meals, shopping, managing finances, etc.?: No Are you currently unemployed and looking for a job?: I choose not to answer this question Are you interested in more education?: No Please select the resources that you would like help with: None Currently or been in a relationship where the following occur: No concerns reported THRIVE Score: 0 JAMEEL-7 AMB Questionnaire JAMEEL-7 Date JAMEEL - 7 assessed: 02/24/25 Source: Developed by Drs. Ramone Mayfield, Maisha Balbuena, Ap Chand and colleagues, with an educational charity from [employer]. Review of Systems Const Denies chills, Denies fatigue, Denies fever(s), Denies headache(s) and Denies weakness ENT Details: Globus sensation described Denies dizziness and Denies headache(s) Card Denies chest pain, Denies lightheadedness, Denies dyspnea and Denies other (Palpitations) Resp Denies cough, Denies dyspnea, Denies wheezing and Denies other ( shortness of breath) Musc Denies numbness and Denies tingling Neuro Denies dizziness, Denies headache(s), Denies numbness, Denies tingling, Denies paresthesias and Denies weakness Psych Reports anxiety and Denies depression Endo Denies fatigue Aller/Immun Denies wheezing Physical exam (Primary Care) Vital Signs: Last Vital Signs Temp 100 F 04/23/25 14:38 Pulse 68 04/23/25 14:38 Resp 16 04/23/25 14:38 BP 132/72 04/23/25 14:38 Pulse Ox 100 04/23/25 14:38 Oxygen Delivery Method Room Air 04/23/25 14:38 BMI result Body Mass Index 31.0 Tobacco/Smoking Status: Tobacco use Status Tobacco use date assessed 04/23/25 04/23/25 14:37 Patient Tobacco Use Status Never used Tobacco 04/23/25 14:33 e-Cigarette/Vaping Use Never Used 04/23/25 14:33 Thrive Assessment: Date of Thrive Assessment Date Thrive assessed 02/24/25 04/23/25 14:33 Currently or been in a relationship where the following occur: No concerns reported Const General: no acute distress and well developed Nutritional Appearance: well nourished Orientation/consciousness: patient oriented x3 HENMT Head: Yes normocephalic and Yes atraumatic Eyes General: appearance normal, both eyes and all related structures Pupils: Equal, round and reactive pupils present EOM: EOMs intact bilaterally Resp Effort & Inspection: normal respiratory effort Auscultation: clear to auscultation bilaterally Cardio Rate: regular rate Rhythm: regular rhythm Heart sounds: S1 normal heart sound present, S2 normal heart sound present, no gallops, no murmurs and no rubs Neuro General: patient oriented x3 and gait normal Cranial nerves: Yes Equal, round and reactive pupils present Psych Affect: normal affect Coding Level of Care Code Est Pt Level 4 (97633) Diagnoses Globus sensation R09.89 Anxiety F41.9 Assessment & Plan Assessment & Plan (1) Globus sensation: Code(s): R09.89 - Other specified symptoms and signs involving the circulatory and respiratory systems Category: Medical Plan: ongoing globus sensation and throat an external neck discomfort. extensive workup with no clear diagnosis has seen ENT, Gastroenterology, immunology and psychiatry. No mass or tumor seen on imaging barium swallow negative fiberoptic scope negative has been followed by Gastroenterology and no improvement of sensation with treatment of GERD she had discussed vocal cord dysfunction with her therapist and I tried propranolol to see if this would help. Patient notes that it helps her anxiety someone but still has globus sensation. Will refer her to Neurology (2) Anxiety: Code(s): F41.9 - Anxiety disorder, unspecified Category: Medical Plan: ongoing anxiety patient feels that most of her anxiety is due to the sensation in throat although we did discuss that each may be amplifying the other. Propranolol helped briefly but she notes that symptoms have worsened. she can try increasing from 10 mg b.i.d. to 20 mg b.i.d. will also trial buspirone if the propranolol increase his not helping Plan follow-up in 1 month for globus sensation and anxiety Orders: Referrals Neurology Referral R09.89 - Other specified symptoms and signs involving the circulatory and respiratory systems Medications: New buspirone 7.5 mg PO BID 60 tabs 1RF 30 days Changed From propranolol 10 mg PO BID 30 days PRN 60 tabs 0RF Throat tightness symptoms To propranolol 20 mg (2 x 10 mg) PO BID PRN 60 tabs 0RF Throat tightness symptoms 30 days
--- OUTSIDE RECORDS SUMMARY | 2025-04-23 14:36 | XMS_ITS | Data Portability ---
Author Organization [facility], [address] Address [address] [place] [address] Assessment No assessment recorded. Plan of Treatment Reminders Order Date Submit Date Provider Last Modified By Organization Details Last Modified Time Details Appointments None recorded. Lab rapid strep group A, throat 2021 022 [email or web address] _phylicai jesus, [address] [place] [address], [phone], 2 15:00:25 urinalysis, dipstick 2021 022 [email or web address] [facility], [address] [place] [address], [address], 2 15:00:25 test, urine 2021 022 [email or web address] [facility], [address] [place] [address], [address], 2 15:00:25 rapid flu (A+B) 2021 022 [email or web address] _phylicia jesus, [address] [place] [address], [address], 2 15:00:25 rapid SARS CoV 2 Ag, QL IA, respiratory specimen 2021 022 [email or web address] _phylicia [facility], [address] [place] [address], [address], 15:00:25 Referral None recorded. Procedures None recorded. Surgeries None recorded. Imaging None recorded. Medication Orders ondansetron 8 mg disintegrat ing tablet 2021 [email or web address] Not available 15:00:25 benzonatate 200 mg capsule 2021 [id number], [address] [place], [address], 15:00:42 prednisone 20 mg tablet 2021 [id number], [address] [place], [address], 15:00:41 albuterol sulfate HFA 90 mcg/actuati on aerosol inhaler 2021 [id number], [address] [place], [address], 15:00:42 Patient TargetsNo targets recorded. Patient Instructions Encounter Date Encounter Id Patient Instructions Last Modified By Organization Details Last Modified Time 11/11/2022 [id number] nausea and vomiting: care instructions Not available [...] Analyte Normal =Negat john paul Not Available [address] [place], [address], 11/11/2022 14:56:52 11/11/20 22 11/11/2022 rapid SARS CoV 2 Ag, QL IA, respi rator y speci men Unknown Analyte negati ve Not Available [address] [place], [address], 11/11/2022 14:56:52 11/11/20 22 11/11/2022 rapid flu (A+B) Unknown Analyte Normal = Negati ve Not Available _[facility] [address], [place], [address], 11/11/2022 14:56:47 11/11/20 22 11/11/2022 rapid flu (A+B) Unknown Analyte negati ve Not Available obdulia [address], [place], [address], 11/11/2022 14:56:47 11/11/20 22 11/11/2022 rapid flu (A+B) Unknown Analyte Normal = Negati ve Not Available obdulia [address], [place], [address], 11/11/2022 14:56:47 11/11/20 22 11/11/2022 rapid flu (A+B) Unknown Analyte negati ve Not Available obdulia [address], [place], [address], 11/11/2022 14:56:47 11/11/20 22 11/11/2022 pregn carole test, urine Unknown Analyte Normal = Negati ve Not Available obdulia [address], [place], [address], 11/11/2022 14:55:44 11/11/20 22 11/11/2022 pregn carole test, urine Unknown Analyte negati ve Not Available obdulia [address], [place], [address], 11/11/2022 14:55:44 11/11/20 22 11/11/2022 urina lysis , dipst ick Unknown Analyte Normal = light yellow Not Available obdulia leigh [address], [place], [address], 11/11/2022 14:52:41 11/11/20 22 11/11/2022 urina lysis , dipst ick Unknown Analyte Light Yellow Not Available obdulia leigh [address], [place], [address], 11/11/2022 14:52:41 11/11/2011/11/2022 urina lysis , dipst ick Unknown Analyte Normal = clear Not Available 2099obdulia leigh [address], [place], [address], 11/11/2022 14:52:41 11/11/20 22 11/11/2022 urina lysis , dipst ick Unknown Analyte Slight ly Cloudy Not Available 2099obdulia leigh [address], [place], [address], 11/11/2022 14:52:41 11/11/20 22 11/11/2022 urina lysis , dipst ick Unknown Analyte Normal = negati ve Not Available 2099obdulia leigh [address], [place], [address], 11/11/2022 14:52:41 11/11/20 22 11/11/2022 urina lysis , dipst ick Unknown Analyte Negati ve Not Available 2099obdulia leigh [address], [place], [address], 11/11/2022 14:52:41 11/11/20 22 11/11/2022 urina lysis , dipst ick Unknown Analyte Normal = Negati ve Not Available 2099obdulia leigh [address], [place], [address], 11/11/2022 14:52:41 11/11/20 22 11/11/2022 urina lysis , dipst ick Unknown Analyte Negati ve Not Available 2099obdulia leigh [address], [place], [address], 11/11/2022 14:52:41 11/11/20 22 11/11/2022 urina lysis , dipst ick Unknown Analyte Normal = Negati ve Not Available 2099obdulia leigh [address], [place], [address], 11/11/2022 14:52:41 11/11/20 22 11/11/2022 urina lysis , dipst ick Unknown Analyte 80 mg/dL Not Available 2099obdulia leigh [address], [place], [address], 11/11/2022 14:52:41 11/11/20 22 11/11/2022 urina lysis , dipst ick Unknown Analyte Normal = 1.010, 1.015, 1.020 Not Available 2099obdulia leigh [address], [place], [address], 11/11/2022 14:52:41 11/11/20 22 11/11/2022 urina lysis , dipst ick Unknown Analyte 1.025 Not Available [address] [place], [place] [address]kimberly [address], [place], [address], 11/11/2022 14:52:41 11/11/20 22 11/11/2022 urina lysis , dipst ick Unknown Analyte Normal = Negati ve Not Available 2099obdulia leigh [address], [place], [place], [address], 11/11/2022 14:52:41 11/11/20 22 11/11/2022 urina lysis , dipst ick Unknown Analyte Negati ve Not Available 2099obdulia leigh [address], [place], [address], 11/11/2022 14:52:41 11/11/20 22 11/11/2022 urina lysis , dipst ick Unknown Analyte Normal = 6.5, 7.0, 7.5, 8.0 Not Available 2099obdulia leigh [address], [place], [address], 11/11/2022 14:52:41 11/11/20 22 11/11/2022 urina lysis , dipst ick Unknown Analyte 6.5 Not Available [address], [place], [address], 11/11/2022 14:52:41 11/11/20 22 11/11/2022 urina lysis , dipst ick Unknown Analyte Normal = Negati ve Not Available obdulia leigh [address], [place], [address], 11/11/2022 14:52:41 11/11/20 22 11/11/2022 urina lysis , dipst ick Unknown Analyte Negati ve Not Available obdulia leigh [address], [place], [address], 11/11/2022 14:52:41 11/11/20 22 11/11/2022 urina lysis , dipst ick Unknown Analyte Normal = 0.2, 1.0 Not Available 2099obdulia leigh [address], [place], [address], 11/11/2022 14:52:41 11/11/20 22 11/11/2022 urina lysis , dipst ick Unknown Analyte 0.2 E.U./d L Not Available 2099obdulia leigh [address], [place], [address], 11/11/2022 14:52:41 11/11/20 22 11/11/2022 urina lysis , dipst ick Unknown Analyte Normal = Negati ve Not Available 2099obdulia leigh [address], [place], [address], 11/11/2022 14:52:41 11/11/20 22 11/11/2022 urina lysis , dipst ick Unknown Analyte Negati ve Not Available [address] [place] [address], [place], [address], 11/11/2022 14:52:41 11/11/20 22 11/11/2022 urina lysis , dipst ick Unknown Analyte Normal = Negati ve Not Available [address] [place] [address], [place], [address], 11/11/2022 14:52:41 11/11/20 22 11/11/2022 urina lysis , dipst ick Unknown Analyte Negati ve Not Available [address] [place] [address], [address], 11/11/2022 14:52:41 11/11/20 22 11/11/2022 rapid strep group A, throa t Unknown Analyte Normal = Negati ve Not Available [address] [place] [address], [place], [address], 11/11/2022 14:05:37 11/11/20 22 11/11/2022 rapid strep group A, throa t Unknown Analyte negati ve Not Available [address] [place] [address], [address], 11/11/2022 14:05:37 Result Notes None recorded. Problems No Known Problems Procedures Surgical History Date Name Laterality Status Provider Name and Address Organization Details Recorded Time Shoulder joint surgery completed Kay Eliane PA - [facility] 11/11/2022 14:05:13 procedure [...] Updated DateTime 2 165.1 cm 24.1 kg/m2 15479.8 9 g 100 % 100 % 81 /min 22 /min 98 [degF] 128 mm[Hg] 88 mm[Hg] Kay Del Rio PA - [facility] 2 14:04:16 Social History Question Answer Notes LastModified by Organizat ion Details LastModified Time Tobacco Smoking Status Never Smoker Kay yates PA - [facility] 11/11/2022 14:05:02 Which Illicit Or Recreational Drugs Have You Used? Siddharth cheney Information not available 11/11/2022 Have You Had Direct Contact, Or Contact During Intimacy, With Monkeypox Rash, Scabs, Or Body Fluids From A Person With Monkeypox? No Information not available 11/11/2022 Have You Recently Traveled Abroad? No Information not available 11/11/2022 Sex: Unknown Functional Status Question Answer Note LastModified by Organizat ion Details LastModified Time Do you use any illicit or recreational drugs? Yes Information not available 11/11/2022 Do you or have you ever used any other forms of tobacco or nicotine? No Information not available 11/11/2022 What is your level of alcohol consumption? None Information not available 11/11/2022 Mental Status None recorded. Family History Relationship [...] SNOMED-CT Code Diagnosis ICD10 Code Diagnosis [place] [id number] [place] [address] [address] 11/11/2022 09:06:21 11/11/2022 15:03:24 Exposure to SARS-CoV-2 882907068 Z20.822 Nausea and vomiting 1693 1999 R11.2 Acute bronchitis 8245197 2 J20.9 Health Concerns Section Related Observation LastModified by Organization Detai ls LastModified Time None Recorded Concern Status LastModified by Organization Details LastModified Time None Recorded Advance Directives Directive None Recorded Payers Insurance Date Sequence Insurance Name Policy Number Policy Bautista Covered Member ID Bautista Member ID Guarantor Name 12/26/2022 1 [facility] (MEDICAID HMO) [place] Anne-Marie Culver Peoples [id number] Anne-Marie Culver Peoples Notes Date Note Type Note Provider Name and Address Organization Details Recorded Time 11/11/2022 text/html Nausea [facility] bypatient.Notes:c ongested cough and nausea x 1 day. no fever or chills, complaint of SOB . ZUR=641% at room air. Smoking marijuana recreational. Jeronimo Disla NP [address] [place], [address], PA - [facility] 11/11/2022 15:03:24 OBGyn Episode No OBEpisode recorded.
[2025-04-23 14:38] VITALS: BP 132/72; PULSE 68; RESP 16; TEMP 37.7; O2SAT 100; BMI 31.0
== END 2025-04-23 15:49 | disposition home or self-care (01) ==
LOC: HO.HMCFM 14:30
PROVIDERS: PCP Family Medicine; Visit Provider Family Medicine
DX: R09.89 Other specified symptoms and signs involving the circulatory and respiratory systems (principal); F41.9 Anxiety disorder, unspecified

== ENCOUNTER → 2025-04-23 14:29 | Outpatient (BNVA) | payer OTHER, SELFPAY | PROVIDERS: PCP Family Medicine; Visit Provider Family Medicine | DX: R09.89 Other specified symptoms and signs involving the circulatory and respiratory systems (principal); F41.9 Anxiety disorder, unspecified | CPT/HCPCS: 99212 ==

== ENCOUNTER 2025-05-26 15:20 | Outpatient (AMB) | payer OTHER, SELFPAY ==
--- NOTE | 2025-05-26 15:51 | A.OFFPC_ITS ---
Vital Signs 05/26/25 15:57 Height 5 ft 5 in Weight 186 lb BMI 30.9 BP 108/72 Blood Pressure Location Lt brachial Position Sitting Respiration 16 Pulse 75 Pulse Source Pulse Oximeter Temp 97.9 F Temp Source Temporal Artery Scan Pulse Oximetry (%) 98 Oxygen Delivery Method Room Air Intake Visit Reasons: f/u globus sensation Intake Note: Anne-Marie presents in the office today for a follow up. Needs a refill Lanzoprazol. Allergies Milk Containing Products (Dairy) Adverse Reaction (Unknown, Verified 05/26/25 15:53) Unknown Medication List - Last Reconciled 05/26/25 by Danie Wall MD buspirone 7.5 mg PO BID 30 days cetirizine (All Day Allergy (cetirizine)) 10 mg PO DAILY PRN 90 days fluticasone propionate 50 mcg/actuation (Flonase Allergy Relief) 1 spray intranasal BID L norgest/e.estradiol-e.estrad 0.1 mg-20 mcg (84)/10 mcg (7) PO lansoprazole 30 mg PO DAILY 30 days Tobacco use date assessed: 05/26/25 Dental Screening Dental Screen Date: 05/26/25 Did you have a dental visit in the last 12 months?: No Did you have a dental problem in the last 6 months where you did not have access to dental care?: No Was dental information given to patient?: Patient declined HPI f/u globus sensation HPI Details 35 y/o female presents to f/u globus sen bridget vee. Had increased propranolol and added buspirone. She notes med changes did not seem to do much. Reports ongoing globus sensation. She did note she does not feel as anxious most recently. She continues seeing her therapist. [facility] Medical History Tonsillitis No known health problems Surgical History History of esophagogastroduodenoscopy (EGD) Hx of shoulder surgery Hx of foot operation Family History Father HTN (hypertension) Social History (Updated 05/26/25 @ 15:56 by Tg Mitchell MA) Household Members: Family Housing: Condominium Alcohol intake: current Alcohol intake frequency: holidays/special occasions only Patient Tobacco Use Status: Never used Tobacco e-Cigarette/Vaping Use: Never Used Second Hand Smoke Exposure: No Substance Use Type: Marijuana service: No Current occupational status: employed Cognitive needs: No Hearing needs: No Vision needs: No Questionnaire Thrive Questionnaire Date Thrive assessed: 02/24/25 I am a: Patient What is your living situation today?: I have a steady place to live Within the past 12 months, did the food you bought not last and you didn't have the money to get more?: Never true Within the past 12 months, did you worry whether your food would run out before you got money to buy more?: Never true Do you have trouble paying for medicines?: No Do you have trouble getting transportation to medical appointments?: No Do you have trouble paying your heating and electricity bill?: No Do you have trouble taking care of your child, family member or friend?: No Do you have trouble with day-to-day activities such as bathing, preparing meals, shopping, managing finances, etc.?: No Are you currently unemployed and looking for a job?: I choose not to answer this question Are you interested in more education?: No Please select the resources that you would like help with: None Currently or been in a relationship where the following occur: No concerns reported THRIVE Score: 0 JAMEEL-7 AMB Questionnaire JAMEEL-7 Date JAMEEL - 7 assessed: 02/24/25 Source: Developed by Drs. Ramone Mayfield, Maisha Balbuena, Ap Chand and colleagues, with an educational charity from [employer]. Review of Systems Const Denies chills, Denies fatigue, Denies fever(s), Denies headache(s) and Denies weakness ENT Denies dizziness and Denies headache(s) Card Denies dyspnea Resp Denies cough, Denies dyspnea, Denies wheezing and Denies other (shortness of breath) Musc Denies numbness and Denies tingling Neuro Denies dizziness, Denies headache(s), Denies numbness, Denies tingling and Denies weakness Psych Reports anxiety and Denies depression Endo Denies fatigue Aller/Immun Denies wheezing Physical exam (Primary Care) Vital Signs: Last Vital Signs Temp 97.9 F 05/26/25 15:57 Pulse 75 05/26/25 15:57 Resp 16 05/26/25 15:57 BP 108/72 05/26/25 15:57 Pulse Ox 98 05/26/25 15:57 Oxygen Delivery Method Room Air 05/26/25 15:57 BMI result Body Mass Index 30.9 Tobacco/Smoking Status: Tobacco use Status Tobacco use date assessed 05/26/25 05/26/25 15:59 Patient Tobacco Use Status Never used Tobacco 05/26/25 15:56 e-Cigarette/Vaping Use Never Used 05/26/25 15:56 Thrive Assessment: Date of Thrive Assessment Date Thrive assessed 02/24/25 05/26/25 15:52 Currently or been in a relationship where the following occur: No concerns reported Const General: well developed; No acute distress Nutritional Appearance: well nourished Orientation/consciousness: patient oriented x3 HENMT Head: Yes normocephalic and Yes atraumatic Eyes General: appearance normal, both eyes and all related structures Pupils: Equal, round and reactive pupils present EOM: EOMs intact bilaterally Resp Effort & Inspection: normal respiratory effort Neuro General: patient oriented x3 and gait normal Cranial nerves: Yes Equal, round and reactive pupils present Psych Affect: normal affect Coding Level of Care Code Est Pt Level 4 (61895) Diagnoses Globus sensation R09.89 Anxiety F41.9 Assessment & Plan Assessment & Plan (1) Globus sensation: Code(s): R09.89 - Other specified symptoms and signs involving the circulatory and respiratory systems Category: Medical Plan: Ongoing?globus?sensation No?mass?palpated?on?neck Patient?has?had?extensive?workup?including?by?ENT She?would?like?a?2nd?opinion?and?I?will?refer?to?no?other?ENT Have?referred?her?to?Neurology?and?they?can?not?see?her?until August Currently,?patient?says?symptoms?are?not?worsening but?have?not?improved. She?will?return?sooner?if?symptoms?worsen (2) Anxiety: Code(s): F41.9 - Anxiety disorder, unspecified Category: Medical Plan: Ongoing?anxiety?which?appears?to?be?related?to?symptoms?of?something?stuck?in?he r?throat. May?be?an?underlying?cause?as?well?as?symptom Treating?anxiety?with?propranolol?and?also?buspirone She?will?increase?propranolol Call?or?return?to?office?sooner?if?symptoms?worsen Orders: Referrals Ear/Nose/Throat Referral R09.89 - Other specified symptoms and signs involving the circulatory and respiratory systems Medications: New lansoprazole 30 mg PO DAILY 30 caps 4RF 30 days Refilled propranolol 20 mg (2 x 10 mg) PO BID PRN 60 tabs 0RF Throat tightness symptoms 30 days
[2025-05-26 15:57] VITALS: BP 108/72; PULSE 75; RESP 16; TEMP 36.6; O2SAT 98; BMI 30.9
--- OUTSIDE RECORDS SUMMARY | 2025-05-26 16:07 | XMS_ITS | Data Portability ---
Author Organization [facility] Address [address] [place] [address] Assessment No assessment recorded. Plan of Treatment Reminders Order Date Submit Date Provider Last Modified By Organization Details Last Modified Time Details Appointments None recorded. Lab rapid strep group A, throat 2021 022 [email or web address] _phylicia jesus, [address] [place] [address], [id number], 2 15:00:25 urinalysis, dipstick 2021 022 [email or web address] _phylicia jesus, [address] [place] [address], [id number], 2 15:00:25 test, urine 2021 022 [email or web address] _phylicia jesus, [address] [place] [address], [id number], 2 15:00:25 rapid flu (A+B) 2021 022 [email or web address] _phylicia jesus, [address] [place] [address], [id number], 2 15:00:25 rapid SARS CoV 2 Ag, QL IA, respiratory specimen 2021 022 [email or web address] _phylicia jesus, [address] [place] [address], [id number], 15:00:25 Referral None recorded. Procedures None recorded. Surgeries None recorded. Imaging None recorded. Medication Orders ondansetron 8 mg disintegrat ing tablet 2021 [email or web address] Not available 15:00:25 benzonatate 200 mg capsule 2021 [id number], [address] [place], [address], 15:00:42 prednisone 20 mg tablet 2021 [id number], [address] [place], [address], 15:00:41 albuterol sulfate HFA 90 mcg/actuati on aerosol inhaler 2021 [id number], [address] [place], [address], 15:00:42 Patient TargetsNo targets recorded. Patient Instructions Encounter Date Encounter Id Patient Instructions Last Modified By Organization Details Last Modified Time 11/11/2022 [id number] nausea and vomiting: care instructions Not available [...] Analyte Normal =Negat john paul Not Available _obdulia leigh [address], [address], 11/11/2022 14:56:52 11/11/20 22 11/11/2022 rapid SARS CoV 2 Ag, QL IA, respi rator y speci men Unknown Analyte negati ve Not Available _obdulia leigh [address], [address], 11/11/2022 14:56:52 11/11/20 22 11/11/2022 rapid flu (A+B) Unknown Analyte Normal = Negati ve Not Available obdulia [address], [place], [address], 11/11/2022 14:56:47 11/11/20 22 11/11/2022 rapid flu (A+B) Unknown Analyte negati ve Not Available [address] [place] [address], [place], [address], 11/11/2022 14:56:47 11/11/20 22 11/11/2022 rapid flu (A+B) Unknown Analyte Normal = Negati ve Not Available [address] [place] [address], [place], [address], 11/11/2022 14:56:47 11/11/20 22 11/11/2022 rapid flu (A+B) Unknown Analyte negati ve Not Available [address] [place] [address], [place], [address], 11/11/2022 14:56:47 11/11/20 22 11/11/2022 pregn carole test, urine Unknown Analyte Normal = Negati ve Not Available [address], [place], [address], 11/11/2022 14:55:44 11/11/20 22 11/11/2022 pregn carole test, urine Unknown Analyte negati ve Not Available [address] [place] [address], [place], [address], 11/11/2022 14:55:44 11/11/20 22 11/11/2022 urina lysis , dipst ick Unknown Analyte Normal = light yellow Not Available [address], [place], [address], 11/11/2022 14:52:41 11/11/20 22 11/11/2022 urina lysis , dipst ick Unknown Analyte Light Yellow Not Available 2099obdulia leigh [address], [place], [address], 11/11/2022 14:52:41 11/11/2011/11/2022 urina lysis , dipst ick Unknown Analyte Normal = clear Not Available 2099obdulia leigh [address], [place], [address], 11/11/2022 14:52:41 11/11/20 22 11/11/2022 urina lysis , dipst ick Unknown Analyte Slight ly Cloudy Not Available 2099obdulia leigh [address], [place], [address], 11/11/2022 14:52:41 11/11/20 22 11/11/2022 urina lysis , dipst ick Unknown Analyte Normal = negati ve Not Available 2099obdulia leigh [address], [place], [address], 11/11/2022 14:52:41 11/11/20 22 11/11/2022 urina lysis , dipst ick Unknown Analyte Negati ve Not Available 2099obdulia leigh [address], [place], [address], 11/11/2022 14:52:41 11/11/20 22 11/11/2022 urina lysis , dipst ick Unknown Analyte Normal = Negati ve Not Available 2099obdulia leigh [address], [place], [address], 11/11/2022 14:52:41 11/11/20 22 11/11/2022 urina lysis , dipst ick Unknown Analyte Negati ve Not Available 2099obdulia leigh [address], [place], [address], 11/11/2022 14:52:41 11/11/20 22 11/11/2022 urina lysis , dipst ick Unknown Analyte Normal = Negati ve Not Available 2099obdulia leigh [address], [place], [address], 11/11/2022 14:52:41 11/11/20 22 11/11/2022 urina lysis , dipst ick Unknown Analyte 80 mg/dL Not Available 2099obdulia leigh [address], [place], [address], 11/11/2022 14:52:41 11/11/2011/11/2022 urina lysis , dipst ick Unknown Analyte Normal = 1.010, 1.015, 1.020 Not Available 2099obdulia leigh [address], [place], [address], 11/11/2022 14:52:41 11/11/20 22 11/11/2022 urina lysis , dipst ick Unknown Analyte 1.025 Not Available [address], [place], [address], 11/11/2022 14:52:41 11/11/20 22 11/11/2022 urina lysis , dipst ick Unknown Analyte Normal = Negati ve Not Available 2099obdulia leigh [address], [place], [address], 11/11/2022 14:52:41 11/11/20 22 11/11/2022 urina lysis , dipst ick Unknown Analyte Negati ve Not Available 2099obdulia leigh [address], [place], [address], 11/11/2022 14:52:41 11/11/20 22 11/11/2022 urina lysis , dipst ick Unknown Analyte Normal = 6.5, 7.0, 7.5, 8.0 Not Available 2099obdulia leigh [address], [place], [address], 11/11/2022 14:52:41 11/11/20 22 11/11/2022 urina lysis , dipst ick Unknown Analyte 6.5 Not Available [address], [place], [address], 11/11/2022 14:52:41 11/11/20 22 11/11/2022 urina lysis , dipst ick Unknown Analyte Normal = Negati ve Not Available 2099obdulia leigh [address], [place], [address], 11/11/2022 14:52:41 11/11/20 22 11/11/2022 urina lysis , dipst ick Unknown Analyte Negati ve Not Available [facility] [address], [place], [address], 11/11/2022 14:52:41 11/11/20 22 11/11/2022 urina lysis , dipst ick Unknown Analyte Normal = 0.2, 1.0 Not Available 2099obdulia leigh [address], [place], [address], 11/11/2022 14:52:41 11/11/20 22 11/11/2022 urina lysis , dipst ick Unknown Analyte 0.2 E.U./d L Not Available 2099obdulia leigh [address], [place], [address], 11/11/2022 14:52:41 11/11/20 22 11/11/2022 urina lysis , dipst ick Unknown Analyte Normal = Negati ve Not Available 2099obdulia leigh [address], [place], [address], 11/11/2022 14:52:41 11/11/20 22 11/11/2022 urina lysis , dipst ick Unknown Analyte Negati ve Not Available [address] [place] [address], [place], [address], 11/11/2022 14:52:41 11/11/20 22 11/11/2022 urina lysis , dipst ick Unknown Analyte Normal = Negati ve Not Available [address] [place] [address], [place], [address], 11/11/2022 14:52:41 11/11/20 22 11/11/2022 urina lysis , dipst ick Unknown Analyte Negati ve Not Available [address] [place] [address], [place], [address], 11/11/2022 14:52:41 11/11/20 22 11/11/2022 rapid strep group A, throa t Unknown Analyte Normal = Negati ve Not Available [address] [place] [address], [place], [address], 11/11/2022 14:05:37 11/11/2011/11/2022 rapid strep group A, throa t Unknown Analyte negati ve Not Available [address] [place] [address], [address], 11/11/2022 14:05:37 Result Notes None recorded. Problems No Known Problems Procedures Surgical History Date Name Laterality Status Provider Name and Address Organization Details Recorded Time Shoulder joint surgery completed Kay Wakefield PA - [facility] 11/11/2022 14:05:13 procedure on foot completed Kay Wakefield PA - [facility] 11/11/2022 14:05:25 Imaging [...] Updated DateTime 2 165.1 cm 24.1 kg/m2 72178.8 9 g 100 % 100 % 81 /min 22 /min 98 [degF] 128 mm[Hg] 88 mm[Hg] Kay Del Rio PA - [facility] 14:04:16 Social History Question Answer Notes LastModified by Organizat ion Details LastModified Time Tobacco Smoking Status Never Smoker Kay yates PA - [facility] 11/11/2022 14:05:02 Which Illicit Or Recreational Drugs Have You Used? Garwin Information not available 11/11/2022 Have You Had [...] SNOMED-CT Code Diagnosis ICD10 Code Diagnosis [place] [id number] [place] [address] [address] 11/11/2022 09:06:21 11/11/2022 15:03:24 Exposure to SARS-CoV-2 269535996 Z20.822 Nausea and vomiting 1693 1999 R11.2 Acute bronchitis 7753450 2 J20.9 Health Concerns Section Related Observation LastModified by Organization Detai ls LastModified Time None Recorded Concern Status LastModified by Organization Details LastModified Time None Recorded Advance Directives Directive None Recorded Payers Insurance Date Sequence Insurance Name Policy Number Policy Bautista Covered Member ID Bautista Member ID Guarantor Name 12/26/2022 1 [employer] - HEALTH NET PLAN (MEDICAID HMO) [employer] Anne-Marie Loomisb [id number] Anne-Marie Loomisb Notes Date Note Type Note Provider Name and Address Organization Details Recorded Time 11/11/2022 text/html Nausea [facility] bypatient.Notes:c ongested cough and nausea x 1 day. no fever or chills, complaint of SOB . IAF=856% at room air. Smoking marijuana recreational. Jeronimo Disla NP [address] [place], [address], PA - [facility] 11/11/2022 15:03:24 OBGyn Episode No OBEpisode recorded.
== END 2025-05-26 16:07 | disposition home or self-care (01) ==
LOC: HO.HMCFM 15:20
PROVIDERS: PCP Family Medicine; Visit Provider Family Medicine
DX: R09.89 Other specified symptoms and signs involving the circulatory and respiratory systems (principal); F41.9 Anxiety disorder, unspecified

== ENCOUNTER → 2025-05-26 15:20 | Outpatient (BNVA) | payer OTHER, SELFPAY | PROVIDERS: PCP Family Medicine; Visit Provider Family Medicine | DX: R09.89 Other specified symptoms and signs involving the circulatory and respiratory systems (principal); F41.9 Anxiety disorder, unspecified | CPT/HCPCS: 99212 ==

== ENCOUNTER 2025-07-30 12:43 | Outpatient (AMB) | payer OTHER, SELFPAY ==
--- NOTE | 2025-07-30 12:45 | MHC.OFFWIV ---
Intake Vital Signs 07/30/25 12:52 Height 5 ft 5 in Weight 186 lb 4 oz BMI 31.0 BP 110/70 Blood Pressure Location Rt brachial Position Sitting Respiration 12 Pulse 93 Pulse Source Pulse Oximeter Temp 96.9 F Temp Source Oral Pulse Oximetry (%) 96 Oxygen Delivery Method Room Air Intake Visit Reasons: Swelling Throat Intake Note: Patient c/o globus sensation flaring up and also patient c/o vomiting and tonsils started hurting x 1 week. 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 Allergies Milk Containing Products (Dairy) Adverse Reaction (Unknown, Verified 07/30/25 13:09) Unknown Medication List - Last Reconciled 07/30/25 by Khushi Barajas, CUSTOMER CARE COORDINATOR- buspirone 7.5 mg PO BID 30 days cetirizine (All Day Allergy (cetirizine)) 10 mg PO DAILY PRN 90 days fluticasone propionate 50 mcg/actuation (Flonase Allergy Relief) 1 spray intranasal BID L norgest/e.estradiol-e.estrad 0.1 mg-20 mcg (84)/10 mcg (7) PO lansoprazole 30 mg PO DAILY 30 days propranolol 20 mg (2 x 10 mg) PO BID PRN 30 days Do you need a note to return to daycare/school/sports/work: No PFSH Medical History Tonsillitis No known health problems Surgical History History of esophagogastroduodenoscopy (EGD) Hx of shoulder surgery Hx of foot operation Family History Father HTN (hypertension) Social History (Updated 05/26/25 @ 15:56 by Tg Mitchell [place]) Household Members: Family Housing: Condominium Alcohol intake: current Alcohol intake frequency: holidays/special occasions only Patient Tobacco Use Status: Never used Tobacco e-Cigarette/Vaping Use: Never Used Second Hand Smoke Exposure: No Substance Use Type: Marijuana service: No Current occupational status: employed Cognitive needs: No Hearing needs: No Vision needs: No Physical Exam Vital Signs: Last Vital Signs Temp 96.9 F 07/30/25 12:52 Pulse 93 07/30/25 12:52 Resp 12 07/30/25 12:52 BP 110/70 07/30/25 12:52 Pulse Ox 96 07/30/25 12:52 Oxygen Delivery Method Room Air 07/30/25 12:52 BMI result Body Mass Index 31.0 Assessment & Plan Assessment & Plan Orders: Orders AMB Rapid Strep Screen Today Z13.9 - Encounter for screening, unspecified Coding
[2025-07-30 12:52] VITALS: BP 110/70; PULSE 93; RESP 12; TEMP 36.1; O2SAT 96; BMI 31.0
--- NOTE | 2025-07-30 13:27 | A.OFFPC_ITS ---
Vital Signs 07/30/25 12:52 Height 5 ft 5 in Weight 186 lb 4 oz BMI 31.0 BP 110/70 Blood Pressure Location Rt brachial Position Sitting Respiration 12 Pulse 93 Pulse Source Pulse Oximeter Temp 96.9 F Temp Source Oral Pulse Oximetry (%) 96 Oxygen Delivery Method Room Air Intake Visit Reasons: Swelling Throat Allergies Milk Containing Products (Dairy) Adverse Reaction (Unknown, Verified 07/30/25 13:09) Unknown Medication List - Last Reconciled 07/30/25 by JANNETTE Drake- buspirone 7.5 mg PO BID 30 days cetirizine (All Day Allergy (cetirizine)) 10 mg PO DAILY PRN 90 days fluticasone propionate 50 mcg/actuation (Flonase Allergy Relief) 1 spray intranasal BID L norgest/e.estradiol-e.estrad 0.1 mg-20 mcg (84)/10 mcg (7) PO lansoprazole 30 mg PO DAILY 30 days propranolol 20 mg (2 x 10 mg) PO BID PRN 30 days Tobacco use date assessed: 05/26/25 Dental Screening Dental Screen Date: 05/26/25 HPI HPI Comments History of Present Illness Details History - The patient is a 35-year-old female pr esenting with sore throat, nasal congestion, vomiting from fullness in throat - Chronic sore throat with three years? history; current exacerbation persists for almost a week. - History of recurrent pharyngitis, nasa l congestion, and itchy ears. - Previous ENT evaluations, unclear diag nosis. c/o chronic globus sensation - tried otc throat spray & dayquil w.o carlos manuel calix Review of Systems - Ear/Nose/Throat: Reports sore throat, episodic swallowing difficulties, nasal drainage, itchy ears. - Gastrointestinal: Reports vomiting and GERD symptoms. - Lymphatic: Reports sensation of throat swelling. - Neurological: Denies dizziness, headac hes. - Respiratory: Denies cough, shortness o f breath. Physical Exam General: Awake, alert. No apparent distress Eyes: Sclera and conjunctiva clear bilaterally Nose: Nares patent, turbinates within normal limits, + polyps, no sinus tenderness with palpation bilaterally Ears: Tympanic membranes intact and clear bilaterally Throat: Moist mucosa membrane, pharynx within normal limits, tonsils grade 1+, uvula midline, managing secretions, no hot potatoe voice, no ac adenopathy, mild hoarsness to voice Pulm: speaking in full sentences, no cough. Results - Tests: Negative throat swab for strept ococcus. Discussion Notes I reviewed the use of short-course oral steroids as a therapeutic trial to assess response to swelling and discomfort. Informed the patient that this is aimed at addressing inflammation and could alleviate symptoms, particularly nausea stemming from the throat sensation. We spoke about combining Flonase with ipratropium to manage nasal symptoms and the necessity of taking prednisone with food to minimize gastrointestinal upset. I recommended a follow-up to re- evaluate the treatment response and adjustment in case symptoms persist. Patient was given time to ask questions. All questions were answered to their s atisfaction. Assessment and Plan 1. Chronic sore throat - Oral prednisone trial: 5-day course. 2. Recurrent pharyngitis - Monitor response post prednisone treat ment. 3. Chronic rhinorrhea - Flonase plus ipratropium nasal therapy initiated. 4. Nasal polyps - Continuation of Flonase. Patient Instructions - Take prednisone with food to avoid ups et stomach. - Use Flonase and ipratropium nasal spra y daily as directed. - Continue omeprazole for GERD symptoms. - Return for evaluation if symptoms pers ist or worsen. - Avoid environmental irritants that cou ld worsen ear itching. Consent Patient was informed and verbally consented to the use of an ambient scribe for clinic note documentation during this visit. Total time spent caring for the patient today was 30 minutes. This includes time spent before the visit reviewing the chart, time spent during the visit, and time spent after the visit on documentation, reviewing laboratory results, diagnostic imaging, medications, performing a medically necessary evaluation, counseling on diagnoses, care coordination, ordering appropriate tests, ordering appropriate medications, review of tests performed by other providers, reporting test results with the patient, communication with other healthcare providers. [facility] Medical History Tonsillitis No known health problems Surgical History History of esophagogastroduodenoscopy (EGD) Hx of shoulder surgery Hx of foot operation Family History Father HTN (hypertension) Social History (Updated 05/26/25 @ 15:56 by Tg Mitchell [place]) Household Members: Family Housing: Condominium Alcohol intake: current Alcohol intake frequency: holidays/special occasions only Patient Tobacco Use Status: Never used Tobacco e-Cigarette/Vaping Use: Never Used Second Hand Smoke Exposure: No Substance Use Type: Marijuana service: No Current occupational status: employed Cognitive needs: No Hearing needs: No Vision needs: No Questionnaire Thrive Questionnaire Date Thrive assessed: 02/24/25 I am a: Patient What is your living situation today?: I have a steady place to live Within the past 12 months, did the food you bought not last and you didn't have the money to get more?: Never true Within the past 12 months, did you worry whether your food would run out before you got money to buy more?: Never true Do you have trouble paying for medicines?: No Do you have trouble getting transportation to medical appointments?: No Do you have trouble paying your heating and electricity bill?: No Do you have trouble taking care of your child, family member or friend?: No Do you have trouble with day-to-day activities such as bathing, preparing meals, shopping, managing finances, etc.?: No Are you currently unemployed and looking for a job?: I choose not to answer this question Are you interested in more education?: No Please select the resources that you would like help with: None Currently or been in a relationship where the following occur: No concerns reported THRIVE Score: 0 JAMEEL-7 AMB Questionnaire JAMEEL-7 Date JAEMEL - 7 assessed: 02/24/25 Source: Developed by Drs. Ramone Mayfield, Maisha Balbuena, Ap Chand and colleagues, with an educational charity from [employer]. Physical exam (Primary Care) Vital Signs: Last Vital Signs Temp 96.9 F 07/30/25 12:52 Pulse 93 07/30/25 12:52 Resp 12 07/30/25 12:52 BP 110/70 07/30/25 12:52 Pulse Ox 96 07/30/25 12:52 Oxygen Delivery Method Room Air 07/30/25 12:52 BMI result Body Mass Index 31.0 Tobacco/Smoking Status: Tobacco use Status Tobacco use date assessed 05/26/25 05/26/25 15:59 Patient Tobacco Use Status Never used Tobacco 05/26/25 15:56 e-Cigarette/Vaping Use Never Used 05/26/25 15:56 Thrive Assessment: Date of Thrive Assessment Date Thrive assessed 02/24/25 05/26/25 15:52 Currently or been in a relationship where the following occur: No concerns reported Results AMB Rapid Strep AMB Rapid Strep Negative Last Edit by Hema Álvarez MA on 07/30/25 13:22 Results Reviewed Results Reviewed: Laboratory Last Values Strep Scn Rapid Clinic Negative 07/30/25 13:18 Coding Level of Care Code Est Pt Level 4 (79854) Complex EM visit Add On G2211 Diagnoses Chronic pharyngitis and nasopharyngitis J31.1; J31.2 Globus sensation R09.89 Assessment & Plan Assessment & Plan (1) Chronic pharyngitis and nasopharyngitis: Code(s): J31.1 - Chronic nasopharyngitis; J31.2 - Chronic pharyngitis Category: Medical (2) Globus sensation: Code(s): R09.89 - Other specified symptoms and signs involving the circulatory and respiratory systems Category: Medical Plan . Orders: Orders AMB Rapid Strep Screen Today Z13.9 - Encounter for screening, unspecified Medications: New prednisone 40 mg (2 x 20 mg) PO DAILY 10 tabs 0RF ipratropium bromide administer into each nostril 2 sprays intranasal BID 30 mL 2RF
--- OUTSIDE RECORDS SUMMARY | 2025-07-30 13:56 | XMS_ITS ---
Author Name [facility] Organization Unknown Problems Problem Status Onset Date Problem Type Date of Resoluti on Source Globus sensation active [facility]
--- OUTSIDE RECORDS SUMMARY | 2025-07-30 13:56 | XMS_ITS | Clinical Summary ---
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 Name Role Phone Unavailable Primary Care Provider Unavailabl e Encounters Date Type Department Care Team Description 05/28/2025 Transcribe Orders [facility] PRIMARY CARE SCAN Danie Wall MD Globus sensation (Primary Dx) from Last 3 Months Social History Tobacco Use Types Packs/Day Years Used Date Smoking Tobacco: Never Assessed Comments Unknown Sex and Gender Information Value Date Recorded Sex Assigned at Not on file Legal Sex Female 2:40 PM EDT Gender Identity Not on file Sexual Orientation Not on file Plan of Treatment Health Maintenance Due Date Last Done Comments Hepatitis C Virus Screening 1989 HIV Screening 2002 DTaP/Tdap/Td Vaccines (1 - Tdap) 02/07/2008 Hepatitis B Vaccines (1 of 3 - 19+ 3-dose series) 02/07/2008 HPV Vaccines (1 - 3-dose SCD M series) 02/07/2016 COVID-19 Vaccine ( - 2023-2 5 season) 2024 Pneumococcal Vaccine: Pediat loco (0-5 Years) and At-Risk Patients (6 to 49 Years) Aged Out No longer eligible b ased on patient's age to complete this topic
== END 2025-07-30 13:26 | disposition home or self-care (01) ==
LOC: HO.HMCFM 12:44
PROVIDERS: PCP Family Medicine; Visit Provider Nurse Practitioner Family
DX: J31.1 Chronic nasopharyngitis (principal); J31.2 Chronic pharyngitis; R09.89 Other specified symptoms and signs involving the circulatory and respiratory systems; Z13.9 Encounter for screening, unspecified

== ENCOUNTER → 2025-07-30 12:43 | Outpatient (BNVA) | payer OTHER, SELFPAY | PROVIDERS: PCP Family Medicine; Visit Provider Nurse Practitioner Family | DX: J31.2 Chronic pharyngitis (principal); J31.1 Chronic nasopharyngitis; J34.89 Other specified disorders of nose and nasal sinuses; J33.9 Nasal polyp, unspecified | CPT/HCPCS: 87880; 99212 ==

== ENCOUNTER 2025-08-26 15:31 | Outpatient (AMB) | payer OTHER, SELFPAY ==
--- NOTE | 2025-08-26 15:40 | MHC.PC.OV ---
Vital Signs 08/26/25 15:45 Height 5 ft 5 in Weight 185 lb 4 oz BMI 30.8 BP 120/82 Blood Pressure Location Rt brachial Position Sitting Respiration 14 Pulse 86 Pulse Source Pulse Oximeter Temp 97.3 F Temp Source Temporal Artery Scan Pulse Oximetry (%) 97 Oxygen Delivery Method Room Air Intake Visit Reasons: f/u anxiety, globus sensation Intake Note: Anne-Marie presents in the office today for a follow up to anxiety and globus sensation. Needs refill of propranolol. Allergies Milk Containing Products (Dairy) Adverse Reaction (Unknown, Verified 08/26/25 15:42) Unknown Tobacco use date assessed: 08/26/25 Dental Screening Dental Screen Date: 08/26/25 Did you have a dental visit in the last 12 months?: No Did you have a dental problem in the last 6 months where you did not have access to dental care?: No Was dental information given to patient?: Patient declined HPI f/u anxiety, globus sensation HPI Details 35 y/o female presents to f/u anxiety, globus sensation. Had seen Madeline and was given prednisone for some possible swelling. Pt notes this did not improve symptoms. Has an appt. with neurology. Has complaints of a rash. HPI Comments History of Present Illness Details Documentation assistance for Danie Wall MD, was provided by Geoff Mccauley,? Criminal Attorney on 08/26/2025 at 4:05 PM EST. I, Dr. Wall, have read, observed, and verified documentation. ?? PFSH Medical History Tonsillitis No known health problems Surgical History History of esophagogastroduodenoscopy (EGD) Hx of shoulder surgery Hx of foot operation Family History Father HTN (hypertension) Social History (Updated 08/26/25 @ 15:43 by Tg Mitchell CMA) Household Members: [facility] Alcohol intake: current Alcohol intake frequency: holidays/special occasions only Patient Tobacco Use Status: Never used Tobacco e-Cigarette/Vaping Use: Never Used Second Hand Smoke Exposure: No Use of substances other than those prescribed or required for medical reasons: Yes Substance Use Type: Marijuana service: No Current occupational status: employed Cognitive needs: No Hearing needs: No Vision needs: No Questionnaire Thrive Questionnaire Date Thrive assessed: 02/24/25 I am a: Patient What is your living situation today?: I have a steady place to live Within the past 12 months, did the food you bought not last and you didn't have the money to get more?: Never true Within the past 12 months, did you worry whether your food would run out before you got money to buy more?: Never true Do you have trouble paying for medicines?: No Do you have trouble getting transportation to medical appointments?: No Do you have trouble paying your heating and electricity bill?: No Do you have trouble taking care of your child, family member or friend?: No Do you have trouble with day-to-day activities such as bathing, preparing meals, shopping, managing finances, etc.?: No Are you currently unemployed and looking for a job?: I choose not to answer this question Are you interested in more education?: No Please select the resources that you would like help with: None Currently or been in a relationship where the following occur: No concerns reported THRIVE Score: 0 JAMEEL-7 AMB Questionnaire JAMEEL-7 Date JAMEEL - 7 assessed: 08/26/25 Feeling nervous, anxious, or on edge: 1 = Several days Not being able to stop or control worryin = Several days Worrying too much about different things: 1 = Several days Trouble relaxin = Several days Being so restless that it is hard to sit still: 1 = Several days Becoming easily annoyed or irritable: 1 = Several days Feeling afraid as if something awful might happen: 0 = Not at all Total JAMEEL-7 score (0-4 normal; 5-9 mild; 10-14 moderate; 15-21 severe): 6 Source: Developed by Drs. Ramone Mayfield, Maisha Balbuena, Ap Chand and colleagues, with an educational charity from [employer]. JAMEEL-7 Assessment Billing JAMEEL-7 Assessment Tool: JAMEEL-7 Assessment 26305 Review of Systems Const Denies chills, Denies fatigue, Denies fever(s), Denies headache(s) and Denies weakness ENT Denies dizziness and Denies headache(s) Card Denies dyspnea Resp Denies cough, Denies dyspnea, Denies wheezing and Denies other (shortness of breath) Musc Denies numbness and Denies tingling Skin/Breast Reports rash Neuro Denies dizziness, Denies headache(s), Denies numbness, Denies tingling and Denies weakness Psych Denies anxiety and Denies depression Endo Denies fatigue Aller/Immun Denies wheezing Physical exam (Primary Care) Vital Signs: Last Vital Signs Temp 97.3 F 08/26/25 15:45 Pulse 86 08/26/25 15:45 Resp 14 08/26/25 15:45 BP 120/82 08/26/25 15:45 Pulse Ox 97 08/26/25 15:45 Oxygen Delivery Method Room Air 08/26/25 15:45 BMI result Body Mass Index 30.8 Tobacco/Smoking Status: Tobacco use Status Tobacco use date assessed 08/26/25 08/26/25 15:47 Patient Tobacco Use Status Never used Tobacco 08/26/25 15:43 e-Cigarette/Vaping Use Never Used 08/26/25 15:43 Thrive Assessment: Date of Thrive Assessment Date Thrive assessed 02/24/25 08/26/25 15:41 Currently or been in a relationship where the following occur: No concerns reported Const General: well developed; No acute distress Nutritional Appearance: well nourished Orientation/consciousness: patient oriented x3 HENMT Head: Yes normocephalic and Yes atraumatic Eyes General: appearance normal, both eyes and all related structures Pupils: Equal, round and reactive pupils present EOM: EOMs intact bilaterally Resp Effort & Inspection: normal respiratory effort Neuro General: patient oriented x3 and gait normal Cranial nerves: Yes Equal, round and reactive pupils present Psych Affect: normal affect Coding Level of Care Code Est Pt Level 4 (95971) Diagnoses Anxiety F41.9 Globus sensation R09.89 Eczema L30.9 Additional Codes JAMEEL-7 Assessment Billing - JAMEEL-7 Assessment Tool: JAMEEL-7 Assessment 82147 ([id number]) Assessment & Plan Assessment & Plan (1) Anxiety: Code(s): F41.9 - Anxiety disorder, unspecified Category: Medical (2) Globus sensation: Code(s): R09.89 - Other specified symptoms and signs involving the circulatory and respiratory systems Category: Medical (3) Eczema: Code(s): L30.9 - Dermatitis, unspecified Category: Medical Plan Ongoing globus sensation and clearing her throat. Recently came to the walk-in and was given a short course of prednisone and also ipratropium nasal spray. She says that neither have done anything for the globus sensation or throat clearing. She does say that it has helped nasal passages and also her tonsils - though as just stated, this did not translate into improvement in her primary complaint. She has an upcoming appointment with Neurology for possible neurologic dysphonia and dysphagia. 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 Referred her to a new ENT recently - she has not been contacted. Will have the office give her the phone number so she can call them for an appointment. Rash on flexor surfaces of her elbows and knees Appears to be a contact dermatitis or eczema She has been using some hydrocortisone with some improvement but she is getting some skin discoloration as she has been using it for a month. She can use moisturizing cream with no dyes or perfumes. She can try a Benadryl gel Take a break from hydrocodone and use only in short courses. If not improving will refer her to Dermatology
[2025-08-26 15:45] VITALS: BP 120/82; PULSE 86; RESP 14; TEMP 36.3; O2SAT 97; BMI 30.8
--- OUTSIDE RECORDS SUMMARY | 2025-08-26 16:21 | XMS_ITS | Clinical Summary ---
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
== END 2025-08-26 16:09 | disposition home or self-care (01) ==
LOC: HO.HMCFM 15:33
PROVIDERS: PCP Family Medicine; Visit Provider Family Medicine
DX: F41.9 Anxiety disorder, unspecified (principal); R09.89 Other specified symptoms and signs involving the circulatory and respiratory systems; L30.9 Dermatitis, unspecified

== ENCOUNTER → 2025-08-26 15:31 | Outpatient (BNVA) | payer OTHER, SELFPAY | PROVIDERS: PCP Family Medicine; Visit Provider Family Medicine | DX: F41.9 Anxiety disorder, unspecified (principal); R09.89 Other specified symptoms and signs involving the circulatory and respiratory systems; L30.9 Dermatitis, unspecified | CPT/HCPCS: 96127; 99212 ==

== ENCOUNTER 2025-09-03 09:14 | Outpatient (AMB) | payer OTHER, SELFPAY ==
--- NOTE | 2025-09-03 09:15 | A.OFFVIS_ITS ---
Vital Signs 09/03/25 09:16 Height 5 ft 5 in Weight 191 lb 8 oz BMI 31.9 BP 128/90 H Blood Pressure Location Rt brachial Position Sitting Pulse 79 Pulse Source Pulse Oximeter Pulse Oximetry (%) 100 Oxygen Delivery Method Room Air Intake Visit Reasons: INP-Sympt and sign inv circulatory/respiratory Intake Note: Globus sensation - Other specified symptoms and signs involving the circulatory and respiratory systems [place]. Commissioner Required: No Accompanied by: Self / Same As Patient Allergies Milk Containing Products (Dairy) Adverse Reaction (Unknown, Verified 09/03/25 09:16) Unknown HPI Comments Details: 35y/o female comes for neurological evaluation she feels like something is stuck in her throat, she needs to clear her throat often , discomfort in her throat , voice is hoarse sometimes, feels her tongue goes into spasm . It started 3 years ago whens he had COVID but her throat symptoms did not improve. she had banana and she started feeling it was stuck to throat and did not resolve She feels worse when she wakes up and stress worsens . when she is busy she feels it less. she was seen by ENT GI Psych [employer] with no diagnosis she snores . she wakes up every 30 min gasping for air , no witnessed apnea. she is very tired in daytime she also GERD ? - GI gave her omeprazole , famotidine and did not help she also started having anxiety and panic attacks . she smokes marijuana 1-2 joints a day. Her father and 5 brothers have sleep apnea. [facility] Medical History Tonsillitis No known health problems Surgical History History of esophagogastroduodenoscopy (EGD) Hx of shoulder surgery Hx of foot operation Family History Father HTN (hypertension) Social History Household Members: Family Housing: Condominium Alcohol intake: current Alcohol intake frequency: holidays/special occasions only Patient Tobacco Use Status: Never used Tobacco e-Cigarette/Vaping Use: Never Used Second Hand Smoke Exposure: No Substance Use Type: Marijuana service: No Current occupational status: employed Cognitive needs: No Hearing needs: No Vision needs: No Physical Exam Vital Signs: Last Vital Signs Pulse 79 09/03/25 09:16 BP 128/90 H 09/03/25 09:16 Pulse Ox 100 09/03/25 09:16 Oxygen Delivery Method Room Air 09/03/25 09:16 BMI result Body Mass Index 31.9 Const General: cooperative, healthy appearing, comfortable and no acute distress Nutritional Appearance: average body habitus Orientation/consciousness: patient oriented x3 Eyes Pupils: Equal, round and reactive pupils present Neuro Other: Mallampatti grade 4 Retrognathia Mild tonsillar enlargement neftali Voice- hoarse General: patient oriented x3, tone normal, moves all extremities, no focal motor deficits and CN's II-XI intact bilaterally Cranial nerves: Yes Facial sensation intact/muscles of mastication intact, Yes Equal, round and reactive pupils present, Yes Bilaterally intact EOM present, Yes Nystagmus not present, Yes Normal facial strength present, Yes Midline tongue present, Yes Symmetric palate elevation present and Yes Ability to bilaterally elevate shoulders present Cognition (Neuro): normal cognition Gait exam (Neuro): Normal gait present Motor exam (neuro): 5/5 motor strength present throughout and Normal motor muscle tone present throughout Deep tendon reflexes (DTR's): Right triceps reflex intensity grade: 1+, Left triceps reflex intensity grade: 1+, Rt Biceps (C5, C6): 1+, Left biceps reflex intensity grade: 1+, Right brachioradialis reflex intensity grade: 1+, Left brachioradialis reflex intensity grade: 1+, Right patellar reflex intensity grade: 1+ and Left patellar reflex intensity grade: 1+ Coordination: [id number] test normal Assessment & Plan Assessment & Plan (1) Globus sensation: Comment: ? GERD ? loud snoring causing irritation Code(s): R09.89 - Other specified symptoms and signs involving the circulatory and respiratory systems Category: Medical (2) Gasping for breath: Code(s): R06.89 - Other abnormalities of breathing Category: Medical (3) Snoring: Code(s): R06.83 - Snoring Category: Medical (4) Hypersomnia: Code(s): G47.10 - Hypersomnia, unspecified Category: Medical Plan I will evaluate her with Sleep study to evaluate for sleep apnea continue f/u with GI and psychiatry continue Buspar and propranolol for anxiety- she declines new medications Orders: Orders RT home sleep study Today G47.10 - Hypersomnia, unspecified, R06.83 - Snoring, R06.89 - Other abnormalities of breathing Coding Level of Care Code New Pt Level 4 (50267) Complex EM visit Add On G2211 Diagnoses Globus sensation R09.89 Gasping for breath R06.89 Snoring R06.83 Hypersomnia G47.10
[2025-09-03 09:16] VITALS: BP 128/90; PULSE 79; O2SAT 100; BMI 31.9
== END 2025-09-03 09:54 | disposition home or self-care (01) ==
LOC: HO.HSMS 09:14
PROVIDERS: PCP Family Medicine; Visit Provider Psychiatry & Neurology Neurology
DX: R09.89 Other specified symptoms and signs involving the circulatory and respiratory systems (principal); R06.89 Other abnormalities of breathing; R06.83 Snoring; G47.10 Hypersomnia, unspecified
CPT/HCPCS: 99204

== ENCOUNTER → 2025-09-03 09:14 | Outpatient (BNVA) | payer OTHER, SELFPAY | PROVIDERS: PCP Family Medicine; Visit Provider Psychiatry & Neurology Neurology | DX: R06.83 Snoring (principal); G47.10 Hypersomnia, unspecified; R09.89 Other specified symptoms and signs involving the circulatory and respiratory systems; R06.89 Other abnormalities of breathing | CPT/HCPCS: 99202 ==

== ENCOUNTER 2025-11-11 02:17 | Emergency (ER) | payer OTHER, SELFPAY ==
--- NOTE | ~2025-11-11 | XR_ITS ---
CLINICAL HISTORY: cough 2 view chest x-ray. Comparison: CR/DE/SR - XR CHEST 2 VIEWS - 12/26/22 11:59 EST Findings: The lungs are adequately expanded. No focal consolidation. No effusion or pneumothorax. Cardiac and mediastinal contours are within normal limits. No acute osseous abnormality Impression: No acute process. This document has been electronically signed by: Melvin Abdalla MD on 11/11/2025 05:18:14
[2025-11-11 02:32] VITALS: BP 135/88; PULSE 114; RESP 20; TEMP 37.3; O2SAT 97; BMI 30.5
--- OUTSIDE RECORDS SUMMARY | 2025-11-11 02:57 | XMS_ITS | Data Portability ---
Author Organization [facility] Address [address] [place] [address] Assessment No assessment recorded. Plan of Treatment Reminders Order Date Submit Date Provider Last Modified By Organization Details Last Modified Time Details Appointments None recorded. Lab rapid strep group A, throat 2021 022 [email or web address] _phylicia jesus, [address] [place] [address], [id number], 2 15:00:25 urinalysis, dipstick 2021 022 [email or web address] _phylicia jesus, [address] [place] [address], [id number], 2 15:00:25 test, urine 2021 022 [email or web address] _phylicia jesus, [address] [place] [address], [id number], 2 15:00:25 rapid flu (A+B) 2021 022 [email or web address] _phylicia jesus, [address] [place] [address], [id number], 2 15:00:25 rapid SARS CoV 2 Ag, QL IA, respiratory specimen 2021 022 [email or web address] _phylicia jesus, [address] [place] [address], [id number], 15:00:25 Referral None recorded. Procedures None recorded. Surgeries None recorded. Imaging None recorded. Medication Orders ondansetron 8 mg disintegrat ing tablet 2021 [email or web address] Not available 15:00:25 benzonatate 200 mg capsule 2021 [id number] [address] [place], [address], 15:00:42 prednisone 20 mg tablet 2021 [id number], [address] [place], [address], 15:00:41 albuterol sulfate HFA 90 mcg/actuati on aerosol inhaler 2021 [id number], [address] [place], [address], 15:00:42 Patient TargetsNo targets recorded. Patient Instructions Encounter Date Encounter Id Patient Instructions Last Modified By Organization Details Last Modified Time 11/11/2022 [id number] nausea and vomiting: care instructions Not available [...] john paul Not Available _obdulia leigh [address], [address], 11/11/2022 14:56:52 11/11/20 22 11/11/2022 rapid SARS CoV 2 Ag, QL IA, respi rator y speci men Unknown Analyte negati ve Not Available _obdulia leigh [address], [address], 11/11/2022 14:56:52 11/11/20 22 11/11/2022 rapid flu (A+B) Unknown Analyte Normal = Negati ve Not Available obdulia [address], [place], [address], 11/11/2022 14:56:47 11/11/20 22 11/11/2022 rapid flu (A+B) Unknown Analyte negati ve Not Available [address] [place] [address], [place], [address], 11/11/2022 14:56:47 11/11/20 22 11/11/2022 rapid flu (A+B) Unknown Analyte Normal = Negati ve Not Available [address] [place] [address], [place], [address], 11/11/2022 14:56:47 11/11/20 22 11/11/2022 rapid flu (A+B) Unknown Analyte negati ve Not Available [address] [place] [address], [place], [address], 11/11/2022 14:56:47 11/11/20 22 11/11/2022 pregn carole test, urine Unknown Analyte Normal = Negati ve Not Available [address], [place], [address], 11/11/2022 14:55:44 11/11/20 22 11/11/2022 pregn carole test, urine Unknown Analyte negati ve Not Available [address] [place] [address], [place], [address], 11/11/2022 14:55:44 11/11/20 22 11/11/2022 urina lysis , dipst ick Unknown Analyte Normal = light yellow Not Available [address], [place], [address], 11/11/2022 14:52:41 11/11/20 22 11/11/2022 urina lysis , dipst ick Unknown Analyte Light Yellow Not Available [address]obdulia leigh [address], [place], [address], 11/11/2022 14:52:41 11/11/2011/11/2022 urina lysis , dipst ick Unknown Analyte Normal = clear Not Available 2099obdulia leigh [address], [place], [address], 11/11/2022 14:52:41 11/11/20 22 11/11/2022 urina lysis , dipst ick Unknown Analyte Slight ly Cloudy Not Available 2099obdulia leigh [address], [place], [address], 11/11/2022 14:52:41 11/11/20 22 11/11/2022 urina lysis , dipst ick Unknown Analyte Normal = negati ve Not Available 2099obdulia leigh [address], [place], [address], 11/11/2022 14:52:41 11/11/20 22 11/11/2022 urina lysis , dipst ick Unknown Analyte Negati ve Not Available 2099obdulia leigh [address], [place], [address], 11/11/2022 14:52:41 11/11/20 22 11/11/2022 urina lysis , dipst ick Unknown Analyte Normal = Negati ve Not Available [address]obdulia leigh [address], [place], [address], 11/11/2022 14:52:41 11/11/20 22 11/11/2022 urina lysis , dipst ick Unknown Analyte Negati ve Not Available [address]obdulia leigh [address], [place], [address], 11/11/2022 14:52:41 11/11/20 22 11/11/2022 urina lysis , dipst ick Unknown Analyte Normal = Negati ve Not Available [address]obdulia leigh [address], [place], [address], 11/11/2022 14:52:41 11/11/20 22 11/11/2022 urina lysis , dipst ick Unknown Analyte 80 mg/dL Not Available 2099obdulia leigh [address], [place], [address], 11/11/2022 14:52:41 11/11/2011/11/2022 urina lysis , dipst ick Unknown Analyte Normal = 1.010, 1.015, 1.020 Not Available 2099obdulia leigh [address], [place], [address], 11/11/2022 14:52:41 11/11/20 22 11/11/2022 urina lysis , dipst ick Unknown Analyte 1.025 Not Available [address], [place], [address], 11/11/2022 14:52:41 11/11/20 22 11/11/2022 urina lysis , dipst ick Unknown Analyte Normal = Negati ve Not Available 2099obdulia leigh [address], [place], [address], 11/11/2022 14:52:41 11/11/20 22 11/11/2022 urina lysis , dipst ick Unknown Analyte Negati ve Not Available 2099obdulia leigh [address], [place], [address], 11/11/2022 14:52:41 11/11/20 22 11/11/2022 urina lysis , dipst ick Unknown Analyte Normal = 6.5, 7.0, 7.5, 8.0 Not Available 2099obdulia leigh [address], [place], [address], 11/11/2022 14:52:41 11/11/20 22 11/11/2022 urina lysis , dipst ick Unknown Analyte 6.5 Not Available [address], [place], [address], 11/11/2022 14:52:41 11/11/20 22 11/11/2022 urina lysis , dipst ick Unknown Analyte Normal = Negati ve Not Available 2099obdulia leigh [address], [place], [address], 11/11/2022 14:52:41 11/11/20 22 11/11/2022 urina lysis , dipst ick Unknown Analyte Negati ve Not Available [facility] [address], [place], [address], 11/11/2022 14:52:41 11/11/20 22 11/11/2022 urina lysis , dipst ick Unknown Analyte Normal = 0.2, 1.0 Not Available 2099obdulia leigh [address], [place], [address], 11/11/2022 14:52:41 11/11/20 22 11/11/2022 urina lysis , dipst ick Unknown Analyte 0.2 E.U./d L Not Available 2099obdulia leigh [address], [place], [address], 11/11/2022 14:52:41 11/11/20 22 11/11/2022 urina lysis , dipst ick Unknown Analyte Normal = Negati ve Not Available 2099obdulia leigh [address], [place], [address], 11/11/2022 14:52:41 11/11/20 22 11/11/2022 urina lysis , dipst ick Unknown Analyte Negati ve Not Available [address] [place] [address], [place], [address], 11/11/2022 14:52:41 11/11/20 22 11/11/2022 urina lysis , dipst ick Unknown Analyte Normal = Negati ve Not Available [address] [place] [address], [place], [address], 11/11/2022 14:52:41 11/11/20 22 11/11/2022 urina lysis , dipst ick Unknown Analyte Negati ve Not Available [address] [place] [address], [place], [address], 11/11/2022 14:52:41 11/11/20 22 11/11/2022 rapid strep group A, throa t Unknown Analyte Normal = Negati ve Not Available [address] [place] [address], [place], [address], 11/11/2022 14:05:37 11/11/2011/11/2022 rapid strep group A, throa t Unknown Analyte negati ve Not Available [address] [place] [address], [address], 11/11/2022 14:05:37 Result Notes None recorded. Problems No Known Problems Procedures Surgical History Date Name Laterality Status Provider Name and Address Organization Details Recorded Time Shoulder joint surgery completed Kay Eliane PA - [facility] 11/11/2022 14:05:13 procedure on foot completed Kay Millry PA - [facility] 11/11/2022 14:05:25 Imaging [...] mass index (BMI) Body weight Oxygen saturation Heart rate Respiratory rate Body temperature Systolic And Diastolic Provider Name and Address Organization Details Last Updated DateTime 2 165.1 cm 24.1 kg/m2 23730.8 9 g 100 % 81 /min 22 /min 98 [degF] 128/88 mm[Hg] Kay Del Rio PA - Frequency 2 14:04:16 Social History Question Answer Notes LastModified by [employer] Details LastModified Time Tobacco Smoking Status Never Smoker Kay yates PA - [facility] 11/11/2022 14:05:02 Which Illicit Or Recreational Drugs Have You Used? [place] Information not available 11/11/2022 Have You Had [...] Diagnosis SNOMED-CT Code Diagnosis ICD10 Code Diagnosis IMO Codes Diagnosis [place] [id number] [place] [address] [address] 11/11/2022 09:06:21 11/11/2022 15:03:24 Exposure to SARS-CoV-2 207603351 Z20.822 Nausea and vomiting 1693 1999 R11.2 Acute bronchitis 0255714 2 J20.9 Health Concerns Section Related Observation LastModified by Organization Detai ls LastModified Time None Recorded Concern Status LastModified by Organization Details LastModified Time None Recorded Advance Directives Directive None Recorded Payers Insurance Date Sequence Insurance Name Policy Number Policy Bautista Covered Member ID Bautista Member ID Guarantor Name 12/26/2022 1 [facility] PL[facility] (MEDICAID HMO) LISETTE Culver Peoples [id number] Anne-Marie Loomisb Notes Date Note Type Note Provider Name and Address Organization Details Recorded Time 11/11/2022 text/html Nausea UCReporte d by Patientcongested cough and nausea x 1 day. no fever or chills, complaint of SOB . LOJ=718% at room air. Smoking marijuana recreational. Jeronimo Disla NP [address] [place], [address], PA - [facility] 11/11/2022 15:03:24 OBGyn Episode No OBEpisode recorded.
[2025-11-11 03:42] LABS: MANUAL DIFF FLAG NO
[2025-11-11 03:43] LABS: Hematocrit 41.6 % (37.0-47.0); Hemoglobin 13.8 g/dl (12.0-16.0); Imm Gran Abs Auto 0.02 X10*3/uL (0.00-0.03); Imm Gran Pct Auto 0.3 % (0.0-0.4); Lymphocytes Absolute Auto 0.7 X10*3/uL (1.2-4.9); Mean Corpuscular HGB Conc 33.2 g/dl (31.0-35.0); Mean Corpuscular Hemoglobin 30.6 pg (27.0-33.0); Mean Corpuscular Volume 92.2 fL (80.0-98.0); NRBC Abs Auto 0.000 X10*3/uL (0.0-0.012); NRBC Pct Auto 0.0 /100WBC (0.0-0.2); Platelet Count 237 X10*3/uL (160-400); Red Blood Count 4.51 X10*6/uL (4.20-5.50); White Blood Count 6.3 X10*3/uL (4.8-10.8)
[2025-11-11 03:44] LABS: Appearance Urine Cloudy; Glucose Urine UA Negative (Negative); PH 6.5 (5.0-9.0); Specific Gravity - Urine 1.020 (1.005-1.025); UMIC TRIGGER UACC YES
[2025-11-11 03:47] LABS: UPreg QC Valid YES
--- NOTE | 2025-11-11 03:50 | PC.NURSE ---
pt from triage, found AOx4 she has been experiencing a sore throat, fever/chills, nausea, and diarrhea x4 days. On inspection there was some swelling in pts throat.
[2025-11-11 03:52] LABS: IDNOW Serial# 6674DD1D; Strep A Nucleic Acid Negative (Negative)
[2025-11-11 04:03] LABS: Alanine Aminotransferase 46 U/L (0-31); Albumin Level 4.4 g/dL (3.5-5.0); Alkaline Phosphatase 62 U/L (39-117); Anion Gap 15 (12-20); Aspartate Amino Transferase 49 U/L (5-31); Blood Urea Nitrogen 6 mg/dL (9-16); Calcium 8.9 mg/dL (8.4-10.2); Carbon Dioxide 20 mmol/L (22-29); Chloride 104 mmol/L (96-108); Creatinine Clr Calc Pharmacy 108.5; Estimated Glomerular Filt Rate > 60; Lipase 17 U/L (8-78); Magnesium 1.9 mg/dL (1.6-2.6); Potassium 3.4 mmol/L (3.3-5.1); Sodium 136 mmol/L (135-145); Total Protein 7.7 g/dL (6.5-8.0)
[2025-11-11 04:22] LABS: Resp Syncy Virus RNA Qual PCR NEGATIVE (Negative); SARS COV2 PCR INHOUSE NEGATIVE (Negative)
[2025-11-11 05:28] VITALS: BP 143/85; PULSE 93; RESP 14; TEMP 38.3; O2SAT 97
--- NOTE | 2025-11-11 05:34 | PC.NURSE ---
verbal order for MD Page for tylenol, pt medicated per ailyn
--- NOTE | 2025-11-11 06:03 | ED_ITS ---
HPI - Fever General Chief Complaint: Nausea/Vomiting/Diarrhea Stated Complaint: sore throat Time Seen by Provider: 11/11/25 05:46 Source: patient and family Mode of arrival: ambulatory Limitations: no limitations History of Present Illness ED Provider: Dr. Hailey Page HPI Narrative: 35-year-old female who became acutely ill four days ago after a likely exposure to a coughing individual while shopping on Sunday. She reports: ? Severe sore throat described as ?on fire,? associated with a sensation that she ?pulled something? from persistent coughing. ? Persistent, productive cough with yellow mucus and occasional blood-streaked sputum. ? Fever up to 102.6 ?F at home today; Tylenol administered on arrival to the ED. ? Generalized body aches and abdominal pain attributed to forceful coughing. ? Nausea and episodes of vomiting that began prior to arrival. ? Sensation of throat swelling/tonsils ?rubbing together.? ? 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 Related Data Home Medications ?Medication ?Instructions ?Recorded ?Confirmed L norgest/E estradiol-E estrad 0.1 PO 05/21/24 5 mg-20 mcg (84)/10 mcg (7) tabs,3mos Previous Rx's ?Medication ?Instructions ?Recorded fluticasone propionate 50 1 spray intranasal BID #16 g saniya 12/26/23 mcg/actuation nasal spray,suspension (Flonase Allergy Relief) cetirizine 10 mg tablet (All Day 10 mg PO DAILY PRN al lergy 05/21/24 Allergy (cetirizine)) symptoms 90 days #90 tabs propranolol 10 mg tablet 20 mg (2 x 10 mg) PO BID PRN 05/26/25 Throat tightness symptoms 30 days #60 tabs buspirone 7.5 mg tablet 7.5 mg PO BID 30 days #60 ta bs 06/24/25 lansoprazole 30 mg capsule,delayed 30 mg PO DAILY 30 d ays #30 caps 07/07/25 release ipratropium bromide 21 mcg (0.03 2 spray intranasal BI D #30 mL 07/30/25 %) nasal spray dextromethorphan-guaifenesin 10 1 tab-cap PO Q8H PRN c ough #30 caps 11/11/25 mg-200 mg capsule (Robitussin Cough-Chest Congestion DM) ondansetron 4 mg disintegrating 4 mg PO Q8H PRN nausea and 11/11/25 tablet vomiting #10 tabs Allergies Allergy/AdvReac Type Severity Reaction Status Date / Time Milk Containing Products AdvReac Unknown Unknown Verified 11/11/25 02:35 (Dairy) Review of Systems 2 Review of Systems: as per HPI, full review of systems performed and negative but for the above mentioned pertinent positives and negatives. [facility] Past Medical History Medical History Gasping for breath Hypersomnia Snoring Tonsillitis No known health problems Surgical History History of esophagogastroduodenoscopy (EGD) Hx of shoulder surgery Hx of foot operation Family History Family History Father HTN (hypertension) Social History Social History Household Members: [facility] Alcohol intake: never Patient Tobacco Use Status: Never used Tobacco e-Cigarette/Vaping Use: Never Used Second Hand Smoke Exposure: No Substance Use Type: Marijuana service: No Current occupational status: employed Cognitive needs: No Hearing needs: No Vision needs: No Physical Exam 2 Exam: Exam: GENERAL: Ill-Appearing, appears uncomfortable. SKIN: Normal skin color for ethnicity, warm, dry, no rashes noted. HEENT:? Normocephalic, atraumatic, no stridor, dry mucous membranes, uvula midline, posterior oropharynx is erythematous, dentition intact, EOMI. NECK: Soft, supple, full ROM, midline structures nontender, no step-offs, no deformities, no lymphadenopathy. CHEST: Heart regular tachycardia, no murmurs, symmetric chest rise and fall. PULMONARY: Clear to auscultation bilaterally, diminished at the bases, no labored breathing, no wheezes/rhales/rhonchi. ABDOMINAL: Soft, nondistended, nontender, positive bowel sounds in all quadrants. : Deferred. MUSCULOSKELETAL: Normal tone, full range of motion, no deformities, no peripheral edema. NEURO: Alert and oriented x3, CN II through XII intact, equal strength and sensation bilateral upper and lower extremities, no focal neurologic deficits.? PSYCHIATRIC: Flat affect, fluid speech, good eye contact and appropriate demeanor. Vital Signs: Vital Signs: Last Vital Signs Temp 98.2 F 11/11/25 06:17 Pulse 93 11/11/25 06:17 Resp 14 11/11/25 06:17 BP 143/85 H 11/11/25 06:17 Pulse Ox 97 11/11/25 06:17 O2 Del Method Room Air 11/11/25 06:17 BMI result Body Mass Index 30.5 Medications Administered Discontinued Medications Generic Name Dose Route Start Last Admin Trade Name Freq PRN Reason Stop Dose Admin Acetaminophen 975 mg 11/11/25 05:23 11/11/25 05:27 Acetaminophen 325 Mg Tablet PO 11/11/25 05:24 975 mg ONCE ONE Administration Guaifenesin/Dextromethorphan 5 ml 11/11/25 05:58 11/11/25 06:06 Guaifenesin Dm 100/10/5 Ml 5 Ml Syrup PO 11/11/25 05:59 5 ml ONCE ONE Administration Ondansetron HCl 4 mg 11/11/25 05:58 11/11/25 06:06 Ondansetron Odt 4 Mg Tab.Rapdis TRANSLINGU 11/11/25 05:59 4 mg ONCE ONE Administration Medical Decision Making Medical Decision Making MDM Narrative: 35-year-old female presenting with fever, sore throat, productive cough, myalgias, and GI upset ongoing for 4 days. Differential diagnosis includes influenza, coronavirus, pneumonia, upper respiratory infection, among others. Most importantly, this patient is not in any acute respiratory distress. They have normal oxygen levels at room air. Problem #1: Influenza infection Assessment: Confirmed by rapid test. Day 4 of symptoms with fever to 102.6 ?F, significant upper respiratory and constitutional symptoms. Plan: - Antiviral therapy discussed; patient declined Tamiflu after counseling on limited benefit at this stage and potential GI side effects. - Supportive care emphasized: Hydration with water/Gatorade, rest, chicken soup/broth. - Acetaminophen 650 mg (2 regular strength) or 2 extra-strength tablets every 6 h as needed for fever/pain, not to exceed 4 g/24 h. - Avoid ibuprofen/Motrin given PPI use and baseline acid issues. - Return precautions: Worsening shortness of breath, persistent high fevers despite antipyretics, inability to tolerate oral intake, or any other concerning change. - Work/school: Remain home while febrile; may return >=4 h after fever has resolved without antipyretics. Problem #2: Symptomatic throat swelling/pain Assessment: Likely inflammatory response from influenza; significant discomfort. Plan: - Single dose Decadron administered in ED (expected benefit ~48 h). - Patient education that this is not curative but may improve swelling and pain temporarily. Problem #3: Nausea/Vomiting Assessment: Likely multifactorial from influenza and cough. Plan: - Prescription for antiemetic medication sent to patient?s pharmacy. - Instructed to take with food when possible to protect stomach. Problem #4: Cough Assessment: Persistent, productive; causing abdominal discomfort. Plan: - Abdominal pain attributed to forceful coughing discussed; supportive care recommended. Infection Control Counseling: ? Frequent handwashing for patient and household contacts. ? Wear a mask in public; clean household surfaces with bleach. ? Avoid direct coughing toward others; continue to isolate from children as feasible. Follow Up: Return to ED or contact PCP for any worsening symptoms or concerns. Routine outpatient follow-up as needed after recovery. Differential Diagnosis Differential Diagnoses: The differential diagnosis associated with the presentation includes (as above) Admission/Observation Consideration of admission/observation: Escalation of care including admission/observation considered Lab Data MDM Lab Attestation statement: I reviewed the patient's lab results. 11/11/25 03:34 11/11/25 03:34 Labs: Lab Results 11/11/25 11/11/25 11/11/25 Range/Units 03:32 03:33 03:34 WBC 6.3 (4.8-10.8) X10*3/uL RBC 4.51 (4.20-5.50) X10*6/uL Hgb 13.8 (12.0-16.0) g/dl Hct 41.6 (37.0-47.0) % MCV 92.2 (80.0-98.0) fL MCH 30.6 (27.0-33.0) pg MCHC 33.2 (31.0-35.0) g/dl RDW 12.0 (11.0-16.0) % Plt Count 237 (160-400) X10*3/uL MPV 11.2 (9.4-12.3) fL Immature Gran % (Auto) 0.3 (0.0-0.4) % Neut % (Auto) 78.6 H (45-73) % Lymph % (Auto) 10.5 L (20-40) % [place] % (Auto) 10.1 (2-11) % Eos % (Auto) 0.0 (0-4) % Baso % (Auto) 0.5 (0-2) % Lymph # (Auto) 0.7 L (1.2-4.9) X10*3/uL [place] # (Auto) 0.6 (0.1-1.2) X10*3/uL Eos # (Auto) 0.0 (0.0-0.4) X10*3/uL Baso # (Auto) 0.0 (0.0-0.2) X10*3/uL Abs Immat Gran (auto) 0.02 (0.00-0.03) X10*3/uL Absolute Neuts (auto) 5.0 (2.0-8.3) x10*3/uL Absolute Nucleated RBC 0.000 (0.0-0.012) X10*3/uL Nucleated RBC % (auto) 0.0 (0.0-0.2) /100WBC Sodium 136 (135-145) mmol/L Potassium 3.4 (3.3-5.1) mmol/L Chloride 104 (96-108) mmol/L Carbon Dioxide 20 L (22-29) mmol/L Anion Gap 15 (12-20) BUN 6 L (9-16) mg/dL Creatinine 0.79 (0.5-1.4) mg/dL Estim Creat Clear Calc 108.5 Estimated GFR > 60 Random Glucose 100 (60-115) mg/dL Calcium 8.9 (8.4-10.2) mg/dL Magnesium 1.9 (1.6-2.6) mg/dL Total Bilirubin 0.2 (0.0-1.0) mg/dL AST 49 H (5-31) U/L ALT 46 H (0-31) U/L Alkaline Phosphatase 62 (39-117) U/L Total Protein 7.7 (6.5-8.0) g/dL Albumin 4.4 (3.5-5.0) g/dL Lipase 17 (8-78) U/L Beta HCG, Quant < 2 mIU/mL Urine Color Urine Appearance Urine pH (5.0-9.0) Ur Specific [place] (1.005-1.025) Urine Protein (Neg-Trace) mg/dL Urine Glucose (UA) (Negative) mg/dL Urine Ketones (Negative) mg/dL Urine Blood (Negative) Urine Nitrite (Negative) Ur Leukocyte Esterase (Negative) Urine RBC (0-2) /HPF Urine WBC (0-5) /HPF Ur Squamous Epith Cells (0-2) /HPF Urine Bacteria (None Seen) Hyaline Casts (0-2) /LPF Urine Test (NEGATIVE) Influenza Type A (PCR) POSITIVE A (Negative) Influenza Type B (PCR) NEGATIVE (Negative) RSV RNA Qual (PCR) NEGATIVE (Negative) SARS-CoV-2 RNA (RT-PCR) NEGATIVE (Negative) S. pyogenes GrpA LULY Negative (Negative) 11/11/25 Range/Units 03:36 WBC (4.8-10.8) X10*3/uL RBC (4.20-5.50) X10*6/uL Hgb (12.0-16.0) g/dl Hct (37.0-47.0) % MCV (80.0-98.0) fL MCH (27.0-33.0) pg MCHC (31.0-35.0) g/dl RDW (11.0-16.0) % Plt Count (160-400) X10*3/uL MPV (9.4-12.3) fL Immature Gran % (Auto) (0.0-0.4) % Neut % (Auto) (45-73) % Lymph % (Auto) (20-40) % [place] % (Auto) (2-11) % Eos % (Auto) (0-4) % Baso % (Auto) (0-2) % Lymph # (Auto) (1.2-4.9) X10*3/uL [place] # (Auto) (0.1-1.2) X10*3/uL Eos # (Auto) (0.0-0.4) X10*3/uL Baso # (Auto) (0.0-0.2) X10*3/uL Abs Immat Gran (auto) (0.00-0.03) X10*3/uL Absolute Neuts (auto) (2.0-8.3) x10*3/uL Absolute Nucleated RBC (0.0-0.012) X10*3/uL Nucleated RBC % (auto) (0.0-0.2) /100WBC Sodium (135-145) mmol/L Potassium (3.3-5.1) mmol/L Chloride (96-108) mmol/L Carbon Dioxide (22-29) mmol/L Anion Gap (12-20) BUN (9-16) mg/dL Creatinine (0.5-1.4) mg/dL Estim Creat Clear Calc Estimated GFR Random Glucose (60-115) mg/dL Calcium (8.4-10.2) mg/dL Magnesium (1.6-2.6) mg/dL Total Bilirubin (0.0-1.0) mg/dL AST (5-31) U/L ALT (0-31) U/L Alkaline Phosphatase (39-117) U/L Total Protein (6.5-8.0) g/dL Albumin (3.5-5.0) g/dL Lipase (8-78) U/L Beta HCG, Quant mIU/mL Urine Color Yellow Urine Appearance Cloudy Urine pH 6.5 (5.0-9.0) Ur Specific [place] 1.020 (1.005-1.025) Urine Protein 30 (1+) H (Neg-Trace) mg/dL Urine Glucose (UA) Negative (Negative) mg/dL Urine Ketones >=160 (Negative) mg/dL Urine Blood Trace H (Negative) Urine Nitrite Negative (Negative) Ur Leukocyte Esterase Negative (Negative) Urine RBC 6-10 H (0-2) /HPF Urine WBC 0-5 (0-5) /HPF Ur Squamous Epith Cells 6-10 (0-2) /HPF Urine Bacteria 1+ (None Seen) Hyaline Casts 6-10 (0-2) /LPF Urine Test NEGATIVE (NEGATIVE) Influenza Type A (PCR) (Negative) Influenza Type B (PCR) (Negative) RSV RNA Qual (PCR) (Negative) SARS-CoV-2 RNA (RT-PCR) (Negative) S. pyogenes GrpA LULY (Negative) Independent Interpretation I performed an independent interpretation of an: Plain X-Ray Interpretation: My independent interpretation of the chest x-ray reveals no consolidations, pulmonary edema, pleural effusion, pneumothorax, obvious bony abnormalities. Radiology Impression Discussion of test interpretation with radiology: I have reviewed the radiologist's reading. Independent Historian Clinical information obtained from an independent historian. History obtained from or confirmed by: Spouse External Record Review External record reviewed: Inpatient record Prescription Management I considered prescription management with: Pain Medication and Other (antiemetic) Discharge Plan Discharge Clinical Impression: Influenza A, Globus sensation Patient Disposition: Home, Self-Care Instructions: Influenza (ED) Additional Instructions: Keep your mask on if you have to go into public for any reason while you are ill. Use Tylenol around the clock for fever and body aches. Use Robitussin DM for cough, up to 3 times a day. Use Zofran (ondansetron) as needed for nausea. Return to the emergency department with any new or worsening symptoms including: Worsening shortness of breath, continued fevers despite medications, inability to tolerate food or drink. Call 911 with any medical emergency. Prescriptions: New ondansetron 4 mg tablet,disintegrating 4 mg PO Q8H PRN (Reason: nausea and vomiting) Qty: 10 0RF Robitussin Cough-Chest Brody DM 10-200 mg capsule 1 tab-cap PO Q8H PRN (Reason: cough) Qty: 30 0RF No Action cetirizine [All Day Allergy (cetirizine)] 10 mg tablet 10 mg PO DAILY PRN (Reason: allergy symptoms) 90 Days Qty: 90 0RF buspirone 7.5 mg tablet 7.5 mg PO BID 30 Days Qty: 60 1RF lansoprazole 30 mg capsule,delayed release(DR/EC) 30 mg PO DAILY 30 Days Qty: 30 4RF fluticasone propionate [Flonase Allergy Relief] 50 mcg/actuation spray,suspension 1 spray intranasal BID Qty: 16 0RF Rx Instructions: administer into each nostril twice a day for 2 weeks and daily L norgest/e.estradiol-e.estrad 0.1 mg-20 mcg (84)/10 mcg (7) tablets,dose pack,3 month PO propranolol 10 mg tablet 20 mg PO BID PRN (Reason: Throat tightness symptoms) 30 Days Qty: 60 0RF ipratropium bromide 21 mcg (0.03 %) spray,non-aerosol 2 spray intranasal BID Qty: 30 2RF Rx Instructions: administer into each nostril Interventions: ED Discharge Assessment Last Done: 11/11/25 06:17 Discharge Date/Time: 11/11/25 06:18 Print Language: [place]
[2025-11-11] MEDS: guaiFENesin DM 100/10/5 ML 5 ML SYRUP PO (06:06)
[2025-11-11 06:17] VITALS: BP 143/85; PULSE 93; RESP 14; TEMP 36.8; O2SAT 97
== END 2025-11-11 06:18 | disposition home or self-care (01) ==
PROVIDERS: Emergency Provider Emergency Medicine; PCP Family Medicine
DX: J10.1 Influenza due to other identified influenza virus with other respiratory manifestations (principal); R09.A2 Foreign body sensation, throat; R05.9 Cough, unspecified; Z03.818 Encounter for observation for suspected exposure to other biological agents ruled out
CPT/HCPCS: 71046; 80053; 81001; 81025; 83690; 83735; 84702; 85025; 87637; 87651; 99283; 99284

== ENCOUNTER → 2025-11-11 04:45 | Outpatient (BNV) | payer OTHER, SELFPAY | PROVIDERS: Emergency Provider Emergency Medicine; PCP Family Medicine; Visit Provider Radiology Vascular & Interventional Radiology | DX: R05.9 Cough, unspecified (principal) | CPT/HCPCS: 71046 ==